=== PATIENT | male | born 1955 | race Caucasian/White ===

== ENCOUNTER 2019-09-01 11:20 | Inpatient (IN) | payer MEDICAID, SELFPAY ==
[~2019-09-01] VITALS: Ht 160 cm; Wt 74.4 kg
[2019-09-01 11:33] VITALS: BP 124/68
[2019-09-01] MEDS ORDERED: ACETAMINOPHEN EXTRA STRENGTH 500 MG TAB PO ONE (11:35)
[2019-09-01] MEDS ORDERED: NACL 0.9% 1,000 ML IV ONE (11:55)
[2019-09-01] MEDS ORDERED: AZITHROMYCIN 500 MG in DEXTROSE 5% 250 ML IV ONE (11:55)
[2019-09-01] MEDS ORDERED: cefTRIAXone 1,000 MG VIAL ONE ×2 (11:57→12:12)
--- NOTE | 2019-09-01 11:58 | NUR ---
PT AMBULATED TO BED 1. PT PLACED IN COVID PRECAUTIONS.
--- NOTE | 2019-09-01 12:05 | NUR ---
IV INSERTED AND LABS DRAWN BEDSIDE
--- NOTE | 2019-09-01 12:15 | NUR ---
ROCEPHIN IVPB STARTED AT 100 MLS/HR
--- NOTE | 2019-09-01 12:25 | NUR ---
EKG READS SR AT 99 BPM
--- NOTE | 2019-09-01 12:30 | NUR ---
COVID SWAB COLLECTED
[2019-09-01 12:35] LABS: PROTHROMBIN TIME 10.1 secs (10.8-13.4)
[2019-09-01 12:36] LABS: ANION GAP 12.6 (8-16); CARBON DIOXIDE 26.3 mmol/L (21-32); POTASSIUM 3.9 mmol/L (3.5-5.1); TOTAL BILIRUBIN 0.5 mg/dL (0.0-1.0)
[2019-09-01 12:37] LABS: ALBUMIN 3.1 g/dL (3.4-5.0)
[2019-09-01] MEDS ORDERED: AZITHROMYCIN 500 MG INJ VIAL IV ONE (12:39)
[2019-09-01 12:48] LABS: CREATINE KINASE MB 0.3 ng/mL (0-3.6)
--- NOTE | 2019-09-01 12:51 | NUR ---
NEW ORAL TEMP 99.7
--- NOTE | 2019-09-01 12:52 | NUR ---
PT UNABLE TO GIVE URINE SAMPLE
[2019-09-01 12:56] LABS: BASOPHILS % (AUTO) 0.2 % (0.0-2.0); EOSINOPHILS % (AUTO) 0.1 % (0.0-4.0); HEMATOCRIT 41.9 % (36-52); HEMOGLOBIN 14.4 g/dL (12.0-18.0); LYMPHOCYTES # (AUTO) 0.3 K/uL (2.0-11.5); LYMPHOCYTES % (AUTO) 5.7 % (20.5-51.1); MEAN CORPUSCULAR HEMOGLOBIN 32 pg (27-31); MEAN CORPUSCULAR HGB CONC 34 g/dL (33-37); MONOCYTES # (AUTO) 0.3 K/uL (0.8-1.0); MONOCYTES % (AUTO) 5.3 % (1.7-9.3); NEUTROPHILS # (AUTO) 4.2 K/uL (1.8-7.7); NEUTROPHILS % (AUTO) 88.7 % (42.2-75.2); PLATELET COUNT (AUTO) 124 K/uL (140-450); RED BLOOD CELL COUNT(AUTO) 4.46 MIL/uL (4.20-6.10); RED CELL DISTRIBUTION WIDTH 14.2 % (11.6-13.7); WHITE BLOOD COUNT (AUTO) 4.7 K/uL (4.8-10.8)
--- NOTE | 2019-09-01 13:00 | NUR ---
PT C/O CP WITH COUGH, SOB, AND FEVER X 5 DAYS. CURRENT TEMP 101.7. TACHYCARDIA AT 109. PT TACHYPENEIC AT 48 RR. BREATHING SHALLOWED. LUNG SOUNDS DIMINISHED. 92% RA UPON TRIAGE. PT PLACED ON 2 L NC AND NOW AT 97%. PT REPORTS PAIN 4/10 TO CHEST WITH COUGHING. PT REPORTS TAKING NO MEDIATIONS FOR HIS FEVER. PT REPORTS NO TRAVEL OR RECENT COVID EXPOSURE. MEDHX: HTN Addendum: 09/01/19 at 1453 by [email or web address] denies pmh
[2019-09-01] MEDS ORDERED: bisacodyL 10 MG SUPP RC PRN (13:25)
[2019-09-01] MEDS ORDERED: ONDANSETRON 4 MG/2 ML VIAL IM/IVP PRN (13:25)
[2019-09-01] MEDS ORDERED: DOCUSATE SODIUM 100 MG GELCAP PO PRN (13:25)
[2019-09-01] MEDS ORDERED: DEXTROSE 50% 50 ML SYR IVP PRN (13:25)
[2019-09-01] MEDS ORDERED: ALBUTEROL HFA MDI 90 MCG/ACTUATION 8 GM INH PRN (14:10)
[2019-09-01 14:19] LABS: APPEARANCE,URINE CLEAR (CLEAR); BILIRUBIN,URINE NEGATIVE (NEGATIVE); BLOOD, URINE 1+ (NEGATIVE); COLOR,URINE ORANGE (YELLOW); LEUKOCYTE ESTERASE ,URINE TRACE (NEGATIVE); NITRITE, URINE NEGATIVE (NEGATIVE); UGLUCOSE NEGATIVE (NEGATIVE)
[2019-09-01] MEDS: NACL 0.9% 1,000 ML IV SCH (14:22)
--- NOTE | 2019-09-01 14:25 | NUR ---
rt at bedside for abgs
[2019-09-01] MEDS: ZINC SULF 220 MG CAP PO SCH (14:31)
--- NOTE | 2019-09-01 14:32 | NUR ---
temp 97.5, pt has no complaints at this time. sr at 92 bpm. tachypneic at 45 rr
--- NOTE | 2019-09-01 14:35 | NUR ---
zinc po administered
[2019-09-01 14:39] LABS: WBC,URINE 0-5 /HPF (0-5)
[2019-09-01 14:44] LABS: BARBITURATE, URINE NEGATIVE ng/ml (NEG <=200); BENZODIAZEPINE, URINE NEGATIVE ng/mL (NEG <=200); CANNABINOID, URINE NEGATIVE ng/mL (NEG <=50); COCAINE, URINE NEGATIVE ng/mL (NEG <=300); OPIATE, URINE NEGATIVE ng/mL (NEG <=2000); PHENCYCLIDINE SCREEN,URINE NEGATIVE ng/mL (NEG <=25)
[2019-09-01] MEDS ORDERED: LORazepam 0.5 MG TAB PO SCH (15:00)
[2019-09-01 15:11] LABS: LACTATE DEHYDROGENASE 396 U/L (85-227)
[2019-09-01 15:33] LABS: FREE T4 (FREE THYROXINE) 1.31 ng/dL (0.76-1.46); MAGNESIUM 1.8 mg/dL (1.8-2.4); PHOSPHORUS 2.9 mg/dL (2.5-4.9); THYROID STIMULATING HORMONE 1.5 uIU/mL (0.34-3.74)
--- NOTE | 2019-09-01 15:43 | NUR ---
ATIVAN PO AND HEPARIN ADMINISTERED SUBQ
--- NOTE | 2019-09-01 16:54 | NUR ---
nacl infusing at 30mls/hr
--- NOTE | 2019-09-01 16:55 | NUR ---
RECEIVED REPORT FROM ER NURSE BALDEMAR FOR CONTINUATION OF CARE. PT IS AAOX4, COOPERATIVE AND ABLE TO MAKE NEEDS KNOWN. PT ON 2L O2 VIA NC FOR DX OF HYPOXIA. PT STATES THAT HE CAN WALK FINE BUT BECOMES SOB WHEN AMBULATING. URINAL PROVIDED FOR SAFETY MEASURES. PT SKIN INTACT. IV IN THE RIGHT AC 18G INFUSING NS @ 30ML/HR. DISCUSSED POC WITH PT. PT VERBALIZED UNDERSTANDING. ALL SAFETY MEASURES IN PLACE. BED IN LOW POSITION, CALL LIGHT WITHIN REACH. WILL ROUND FREQUENTLY ON PT THROUGHOUT THE SHIFT.
--- NOTE | 2019-09-01 16:55 | NUR ---
Patient will be admitted to care of [facility]. Admited to tele. Will go to room 111b. Belongings list completed. Report to radha rawls. covid swab pending
[2019-09-01] MEDS ORDERED: DEXAMETHASONE 4 MG TAB PO SCH (17:00)
[2019-09-01] MEDS ORDERED: ASCORBIC ACID 500 MG TAB PO SCH (17:00)
[2019-09-01] MEDS: BLOOD GLUCOSE MONITORING 1 DEV DEV FS SCH ×2 (17:27→22:30)
--- NOTE | 2019-09-01 18:29 | NUR ---
PT HAVING DINNER. ALL NEEDS MET. WILL CONTINUE TO ROUND FREQUENTLY ON PT.
--- NOTE | 2019-09-01 19:00 | NUR ---
WILL ENDORSE TO ACCOUNT DEVELOPMENT EXECUTIVE FOR CONTINUITY OF CARE. PT IN STABLE CONDITION.
--- NOTE | 2019-09-01 19:00 | NUR ---
RECEIVED PT AAOX4 , NID - O2 SAT WNL , ON TELE MONITOR - SR , DENIES ANY PAIN , W/ O2 AT 2LPM/ NC .IV SITE INTACT AND PATENT . SAFETY MEASURES IN PLACE , URINAL , CALL LIGHT WITHIN REACH . PLAN OF CARE DISCUSSED AND VERBALIZE UNDERSTANDING. WILL CONT. TO MONITOR.
[2019-09-01 20:00] VITALS: BP 140/68
--- NOTE | 2019-09-01 22:00 | NUR ---
MADE ROUNDS , RESTING ON BED COMFORTABLY - O2 SAT WNL . CALL LIGHT WITHIN REACH.
[2019-09-01] MEDS: INSULIN LISPRO SLIDING SCALE 100 UNITS/ML VIAL SUBQ PRN (22:40)
[2019-09-02] VITALS: BP 133/68
--- NOTE | 2019-09-02 | NUR ---
MADE ROUNDS , NO S/SX OF ACUTE DISTRESS NOTED AT THIS TIME , WILL CONT. TO MONITOR.
--- NOTE | 2019-09-02 02:07 | NUR ---
SLEEPING - CHEST RISE AND FALL EQUALLY - O2 SAT WNL - ON TELE MONITOR.
[2019-09-02 04:00] VITALS: BP 130/80
[2019-09-02] MEDS: BLOOD GLUCOSE MONITORING 1 DEV DEV FS SCH ×4 (06:09→21:14)
[2019-09-02 07:15] LABS: HEMATOCRIT 42.3 % (36-52); HEMOGLOBIN 14.6 g/dL (12.0-18.0); MEAN CORPUSCULAR HEMOGLOBIN 33 pg (27-31); MEAN CORPUSCULAR HGB CONC 34 g/dL (33-37); MEAN CORPUSCULAR VOLUME 94.8 fL (80-94); PLATELET COUNT (AUTO) 127 K/uL (140-450); RED BLOOD CELL COUNT(AUTO) 4.46 MIL/uL (4.20-6.10); RED CELL DISTRIBUTION WIDTH 14.5 % (11.6-13.7); WHITE BLOOD COUNT (AUTO) 2.9 K/uL (4.8-10.8)
--- NOTE | 2019-09-02 07:20 | NUR ---
RECEIVED PATIENT FROM NIGHT NURSE. PATIENT IS AWAKE AND ALERT, RESP EVEN AND UNLABORED ON 2L NC. NO NOTED DISTRESS AT THIS TIME. PLAN OF CARE DISCUSSED WITH PATIENT, PATIENT VERBALIZED UNDERSTANDING. BED IN LOW POSITION, CALL LIGHT WITHIN REACH. WILL CONTINUE WITH CARE.
[2019-09-02 07:29] LABS: MAGNESIUM 2.3 mg/dL (1.8-2.4); PHOSPHORUS 3.6 mg/dL (2.5-4.9)
[2019-09-02 07:39] LABS: ALBUMIN 2.6 g/dL (3.4-5.0); ANION GAP 12.6 (8-16); CARBON DIOXIDE 27.4 mmol/L (21-32); CHOL/HDL RATIO 3.7 (1-4.5); CREATININE 0.8 mg/dL (0.6-1.3); TOTAL BILIRUBIN 0.4 mg/dL (0.0-1.0)
[2019-09-02 08:00] VITALS: BP 134/73
[2019-09-02] MEDS: ZINC SULF 220 MG CAP PO SCH (08:27)
[2019-09-02] MEDS: AZITHROMYCIN 250 MG TAB PO SCH (08:27)
[2019-09-02] MEDS: ASCORBIC ACID 500 MG TAB PO SCH (08:27)
[2019-09-02] MEDS: DEXAMETHASONE 4 MG TAB PO SCH (08:28)
[2019-09-02 08:29] LABS: LYMPHOCYTES % (MANUAL) 2 % (20-46); MONOCYTES % (MANUAL) 3 % (5-12)
--- NOTE | 2019-09-02 08:44 | NUR ---
MORNING ROUTINE MEDICATIONS GIVEN. PATIENT TOLERATED WELL. ROCEPHIN ADMINISTERED IVPB. PATIENT IS SITTING UP IN BED EATING BREAKFAST. DENIES ANY SOB. CONTINUES ON 2LNC. CALL LIGHT WITHIN REACH. WILL CONTINUE WITH CARE. VITALS ARE WNL.
--- NOTE | 2019-09-02 10:42 | NUR ---
EPIC ANALYST NOTE: ISAAK WAS UNABLE TO MEET WITH PATIENT AT BEDSIDE DUE TO MEDICAL CONDITION. CONTACTED CORAL BAUMANN [phone]. ISAAK LEFT VM. ISAAK WILL FOLLOW UP. Addendum: 09/02/19 at 1451 by Gio Hager ISAAK CONTACTED NURSING STATION TO BE TRANSFERRED TO PATIENT. PATIENT REFUSED TO SPEAK TO ISAAK. Addendum: 09/03/19 at 1536 by Gio Hager Patient's Orientation Person Situation Place Time Information Provided By PATIENT Comments ISAAK CONTACTED PATIENT TELEPHONICALLY WITH NECK SKEWER LIZBET [id number]. PATIENT IS FIJIAN SPEAKING. Procurement Cost Coordinator, Realtionship and Phone Number CORAL BAUMANN [phone] FRIEND/[facility] Power of Manager Underwriting No Does Patient Have a POLST No Identifying Problems No Social Work Triggers Is A Social Work Consult Needed No Mandate Report Filed No Explanation Of Identifying Problems PATIENT IS A 64-YEAR-OLD MALE ADMITTED FOR COVID AND HYPOXIA. PATIENT REPORTS NO PMHX. Admitted From Home Pre-Admission Level Of Functioning Status Independent/Ambulatory Prior Resources/Services Used In Last 12 Months No Prior Resources Used Prior DME No Prior DME Used Living Situation Lives With Friend/Other Patient Had Caregiver No Home Support No Caregiver Issues Financial Issues No Known Financial Issue Factors/Needs No D/C Needs Identified Pt/Rep Participated In Discharge Plan Yes Patient/Family Agress With Discharge Plan Yes Discharge Plan Comments TENTATIVE DISCHARGE PLAN IS FOR PATIENT TO RETURN HOME. DC Plan Status Initiated
--- NOTE | 2019-09-02 10:55 | NUR ---
DC PLANNIN YRS OLD MALE PATIENT WAS ADMITTED FROM HOME WITH A DX OF COVID-19, PUI AND HYPOXIA. PT HAS NO MEDICAL HISTORY. CXR SHOWED BILATERAL PATCHY PULMONARY INFILTRATES . COVID TEST, BLOOD AND URINE CULTURE PENDING. STARTED ON DECADRON ,ZINC AND VITC TABLETS ,IVF, IV ABX WITH ROCEPHIN AND AZITHROMYCIN AND RT PROTOCOL WITH O2. CONSULTED ID AND PULMO. DC PLAN TO GO HOME WHEN STABLE CM TO FOLLOW. Addendum: 09/03/19 at 1525 by Clarisse Ramey DC PLANNING: COVID TEST POSITIVE CONTINUE WITH IV ABX IV ROCEPHIN AND AZITHROMYCIN , OXYMIZER 8L AWAITING FOR PULMO CONSULT . DC PLAN TO GO HOME WHEN STABLE CM TO FOLLOW Addendum: 09/06/19 at 1216 by Clarisse Ramey DC PLANNING: CT CHEST CONTINUES TO SHOW GROUNDLESS OPACITIES AND BILATERAL LUNG BASES. CONTINUE IV ABX FOR PNEUMONIA WITH AZITHROMYCIN AND ROCEPHIN AND FULL DOSE ANTICOAGULATION WITH LOVENOX. DC PLAN TO GO HOME WITH HOME O2 . AWAITING FOR THE O2 QUALIFIER NOTES. DANIS TO FOLLOW. Addendum: 09/09/19 at 1231 by Alina Cruz CM TRANSFERRED TO ICU ON 09/06 DUE TO DESATURATION. ON HIGH FLOW O2, O2 SAT AT 90% FIO2 95%. ON ROCEPHIN, DECADRON. ID AND PULMO CONSULTS IN PLACE. Addendum: 09/10/19 at 1307 by Alina Cruz CM INTUBATED BURIAL NEEDS SALESPERSON AT 0245 TO VENT, FIO2 70%, O2 SAT 94%. SEDATED WITH PROPOFOL AND FENTANYL. STILL ON DECADRON. SEEN BY PULMO. Addendum: 09/15/19 at 1117 by Alina Cruz CM STILL ORALLY INTUBATED, FIO2 90%. O2 SAT 92%. SEDATED WITH FENTANYL AND PROPOFOL. ON DECADRON. SEEN BY RENTAL COORDINATOR - CONTINUE TO HOLD LOVENOX AND FOLLOW CBC CAREFULLY. Addendum: 09/16/19 at 1151 by Alina Cruz STILL ON ETT TO VENT, FIO2 80%, O2 SAT 92%. SEDATED WITH FENTANYL AND PROPOFOL. ON CARDIZEM DRIP. ON DECADRON. PULMO, CARDIO, ID AND KARUNA CONSULTS IN PLACE. Addendum: 09/17/19 at 1054 by Alina Cruz CURRENT LABS INCLUDE WBC 21.1, H/H 11.7/36.9, NA/K 154/6.0, BUN/CREA 76/1.6 AND ALB 1.5. ON ZOSYN, DECADRON. ON CARDIZEM DRIP. ORALLY INTUBATED TO VENT, FIO2 100%, O2 SAT 90%. SEDATED WITH PROPOFOL AND FENTANYL. SEEN BY CARDIO - CONTINUE CARDIZEM DRIP, CAN ATTEMPT DIURESIS WITH LASIX UNDER RENAL GUIDANCE DUE TO ELECTROLYTE IMBALANCE, ANTICOAGULATION CONTRAINDICATED SECONDARY TO THROMBOCYTOPENIA. SEEN BY ID - TO CONTINUE CURRENT THERAPY AND FOLLOW UP CULTURES. PATIENT SPIKED A TEMP YESTERDAY AT 1600-100.4. DC PLAN PENDING ON PATIENT'S RESPONSE TO TREATMENT.
[2019-09-02 12:00] VITALS: BP 128/66
--- NOTE | 2019-09-02 12:05 | NUR ---
BLOOD GLUCOSE 166, PATIENT RECEIVED COVERAGE PER SLIDING SCALE. VITALS WNL 97.5 63 16 128/66 95% ON 2L NC. NO NOTED DISTRESS. PATIENT DENIES OF PAIN AT THIS TIME. CALL LIGHT WITHIN REACH. WILL CONTINUE TO MONITOR
[2019-09-02] MEDS: INSULIN LISPRO SLIDING SCALE 100 UNITS/ML VIAL SUBQ PRN ×3 (12:21→21:14)
[2019-09-02] MEDS: NACL 0.9% 1,000 ML IV SCH (12:27)
[2019-09-02 16:00] VITALS: BP 148/78
--- NOTE | 2019-09-02 16:23 | NUR ---
PATIENT HAS BEEN SCREENED AND CATEGORIZED MODERATE NUTRITION RISK. PATIENT WILL BE SEEN WITHIN 3-5 DAYS OF ADMISSION. 09/04/19 09/06/[address]
--- NOTE | 2019-09-02 19:15 | NUR ---
ENDORSED PATIENT TO NIGHT NURSE. PATIENT IN STABLE CONDITION.
--- NOTE | 2019-09-02 19:15 | NUR ---
RECEIVED BEDSIDE REPORT FROM DAY SHIFT NURSE. PATIENT IS AWAKE, ALERT, AND COOPERATIVE. RESPIRATION EVEN UNLABORED ON 2L NC O2. NO DISTRESS NOTED. SKIN IS WARM AND DRY. IV PATENT AND INTACT. PLAN OF CARE WAS DISCUSSED. ALL SAFETY MEASURES IN PLACE. BED IS AT LOW POSITION. CALL LIGHT WITHIN REACH AND VERBALIZES ITS USE. WILL CONTINUE TO MONITOR.
[2019-09-02 20:00] VITALS: BP 116/68
--- NOTE | 2019-09-02 20:05 | NUR ---
INITIAL ASSESSMENT DONE. VITALS WERE TAKEN. PATIENT IN STABLE CONDITION. NO DISTRESS NOTED. WILL CONTINUE TO MONITOR.
[2019-09-02] MEDS: ACETAMINOPHEN 325 MG TAB PO PRN (21:05)
--- NOTE | 2019-09-02 21:05 | NUR ---
ALL SCHEDULED MEDS WERE GIVEN PER ORDER. PATIENT COMPLAINED OF HEADACHE 6/10 PRN TYLENOL GIVEN PER ORDER. WILL CONTINUE TO MONITOR.
--- NOTE | 2019-09-02 22:23 | NUR ---
CHECKED PATIENT. PATIENT IS AWAKE, WATCHING TV RESPIRATION EVEN UNLABORED ON 2L NC O2. NO DISTRESS NOTED. WILL CONTINUE TO MONITOR.
[2019-09-03] VITALS: BP 128/54
--- NOTE | 2019-09-03 00:02 | NUR ---
VITALS WERE TAKEN. PATIENT IN STABLE CONDITION. NO DISTRESS NOTED. WILL CONTINUE TO MONITOR.
--- NOTE | 2019-09-03 02:17 | NUR ---
CHECKED PATIENT. PATIENT SLEEPING RESPIRATION EVEN UNLABORED ON 2L NC O2. SATING 95%. NO DISTRESS NOTED. WILL CONTINUE TO MONITOR.
[2019-09-03 04:00] VITALS: BP 124/64
--- NOTE | 2019-09-03 04:00 | NUR ---
VITALS WERE TAKEN. PATIENT IN STABLE CONDITION. NO DISTRESS NOTED. WILL CONTINUE TO MONITOR.
--- NOTE | 2019-09-03 04:45 | NUR ---
PATIENT WOKE UP WITH SHORTNESS OF BREATH. ASSESSED PATIENT. PATIENT IS SATING 89% IN 2L NC O2. RR 25. INCREASED PATIENT O2 TO 4L. PATIENT SATING 92%. CALLED RT FOR BREATHING TREATMENT. WILL CONTINUE TO MONITOR.
--- NOTE | 2019-09-03 05:04 | NUR ---
PATIENT WOKE UP ANXIOUS AND RESP RATE ELEVATED AND COMPLAINING OF SOB. SPO2 88 HR 68. PATIENT HAD DIFF CLEARING SECRETIONS. OXYMIZER PLACED ON 8L AND PRN TX MDI GIVEN. PATIENT SPO2 INCREASED TO 94 HR 68 AND RESP RATE NORMAL. NO SOB NOTICED PATIENT STABLE AND ALERT.
[2019-09-03] MEDS: guaiFENesin 20 MG/ML UDC PO PRN ×2 (05:19→13:59)
--- NOTE | 2019-09-03 05:25 | NUR ---
PATIENT IS NOW ON 8L OXIMIZER SATING 96%. PATIENT COMPLAINED OF COUGH. PRN COUGH MEDS GIVEN PER ORDER. WILL CONTINUE TO MONITOR.
[2019-09-03 06:33] LABS: HEMOGLOBIN 14.3 g/dL (12.0-18.0); MEAN CORPUSCULAR HEMOGLOBIN 32 pg (27-31); MEAN CORPUSCULAR HGB CONC 34 g/dL (33-37); PLATELET COUNT (AUTO) 154 K/uL (140-450); RED BLOOD CELL COUNT(AUTO) 4.46 MIL/uL (4.20-6.10); RED CELL DISTRIBUTION WIDTH 14.5 % (11.6-13.7); WHITE BLOOD COUNT (AUTO) 7.5 K/uL (4.8-10.8)
[2019-09-03] MEDS: BLOOD GLUCOSE MONITORING 1 DEV DEV FS SCH ×4 (06:36→21:31)
--- NOTE | 2019-09-03 06:48 | NUR ---
TITRATE PATIENT O2 TO 5L OXYMIZER. PATIENT IS SATING 95%. NO DISTRESS NOTED. WILL CONTINUE TO MONITOR.
--- NOTE | 2019-09-03 07:05 | NUR ---
RECEIVED BEDSIDE REPORT FROM CLIENT EXPERIENCE CONSULTANT RN, FAM, FOR CONTINUITY OF CARE PATIENT IS AWAKE, ALERT, AND COOPERATIVE. RESPIRATION EVEN UNLABORED ON 2L NC O2. NO DISTRESS NOTED. SKIN IS WARM AND DRY. IV PATENT AND INTACT. PLAN OF CARE WAS DISCUSSED. ALL SAFETY MEASURES IN PLACE. BED IS AT LOW POSITION. CALL LIGHT WITHIN REACH AND VERBALIZES ITS USE. WILL CONTINUE TO MONITOR.
[2019-09-03 07:09] LABS: ALBUMIN 2.5 g/dL (3.4-5.0); ANION GAP 12.1 (8-16); CARBON DIOXIDE 27.4 mmol/L (21-32); CREATININE 0.9 mg/dL (0.6-1.3); POTASSIUM 4.5 mmol/L (3.5-5.1); TOTAL BILIRUBIN 0.3 mg/dL (0.0-1.0)
--- NOTE | 2019-09-03 07:15 | NUR ---
ENDORSED PATIENT TO DAY SHIFT NURSE. PATIENT IN STABLE CONDITION.
[2019-09-03 07:23] LABS: LYMPHOCYTES % (MANUAL) 2 % (20-46); MONOCYTES % (MANUAL) 4 % (5-12)
[2019-09-03 08:00] VITALS: BP 136/68
[2019-09-03 09:29] LABS: MAGNESIUM 2.1 mg/dL (1.8-2.4); PHOSPHORUS 3.3 mg/dL (2.5-4.9)
[2019-09-03] MEDS: DEXAMETHASONE 4 MG TAB PO SCH (10:00)
[2019-09-03] MEDS: AZITHROMYCIN 250 MG TAB PO SCH (10:01)
[2019-09-03] MEDS: ZINC SULF 220 MG CAP PO SCH (10:01)
[2019-09-03] MEDS: ASCORBIC ACID 500 MG TAB PO SCH (10:02)
--- NOTE | 2019-09-03 10:15 | NUR ---
SPOKE TO PT'S FAMILY ABOUT PT'S CONDITION. PROVIDED UPDATES AND ADDRESSED FAMILY CONCERNS ABOUT PT. FAMILY VERBALIZES UNDERSTANDING. WILL CONTINUE TO MONITOR.
[2019-09-03 12:00] VITALS: BP 136/79
[2019-09-03] MEDS: NACL 0.9% 1,000 ML IV SCH (13:59)
[2019-09-03] MEDS: ACETAMINOPHEN 325 MG TAB PO PRN (14:00)
--- NOTE | 2019-09-03 14:00 | NUR ---
PT. COMPLAINS OF SQUEEZING HEADACHE OF 4/10 AND PERSISTENT COUGH. MEDICATED WITH TYLENOL AND GUANIFESIN. NO SIGNS OF DISTRESS NOTED. [facility]
--- NOTE | 2019-09-03 14:05 | NUR ---
DR. MORTON BY THE BEDSIDE. ENCOURAGED PT. TO PRONE AND USE INCENTIVE SPIROMETER. ADVISED TO LOWER O2 SAO2 IS WELL ABOVE 96%. WILL FOLLOW THROUGH.
--- NOTE | 2019-09-03 14:43 | NUR ---
RECEIVED CALL FROM KRYS KARIMI. CRITICAL LAB RESULT GIVEN FOR POSITIVE COVID-19. RELAYED REPORT TO DR. TALAMANTES. NO NEW ORDERS GIVEN. WILL CONTINUE TO MONITOR.
[2019-09-03 16:00] VITALS: BP 127/70
--- NOTE | 2019-09-03 19:10 | NUR ---
RECEIVED BEDSIDE REPORT FROM DAY SHIFT NURSE. PATIENT IS AWAKE AND COOPERATIVE. RESPIRATION EVEN UNLABORED ON 3L OXYMIZER. NO DISTRESS NOTED. SKIN IS WARM AND DRY. IV PATENT AND INTACT. PLAN OF CARE WAS DISCUSSED. ALL SAFETY MEASURES IN PLACE. BED IS AT LOW POSITION. CALL LIGHT WITHIN REACH. WILL CONTINUE TO MONITOR.
--- NOTE | 2019-09-03 19:24 | NUR ---
ENDORSED TO OPERATIONS LOGISTICS ANALYST RN FOR CONTINUITY OF CARE.
[2019-09-03 20:00] VITALS: BP 140/70
--- NOTE | 2019-09-03 21:30 | NUR ---
ALL SCHEDULED MEDS WERE GIVEN PER ORDER. NO DISTRESS NOTED. WILL CONTINUE TO MONITOR.
[2019-09-03] MEDS: INSULIN LISPRO SLIDING SCALE 100 UNITS/ML VIAL SUBQ PRN (21:38)
--- NOTE | 2019-09-03 23:34 | NUR ---
CHECKED PATIENT. PATIENT IS SLEEPING RESPIRATION EVEN UNLABORED ON 3L OXYMIZER O2. NO DISTRESS NOTED. WILL CONTINUE TO MONITOR.
[2019-09-04] VITALS: BP 129/65
--- NOTE | 2019-09-04 00:10 | NUR ---
VITALS WERE TAKEN. PATIENT IN STABLE CONDITION. NO DISTRESS NOTED. WILL CONTINUE TO MONITOR.
[2019-09-04] MEDS: guaiFENesin 20 MG/ML UDC PO PRN (01:57)
--- NOTE | 2019-09-04 02:00 | NUR ---
PATIENT COMPLAINED OF COUGH. PRN COUGH MEDICINE GIVEN PER ORDER. WILL CONTINUE TO MONITOR.
[2019-09-04 04:00] VITALS: BP 149/84
--- NOTE | 2019-09-04 04:05 | NUR ---
CAME BACK FROM BREAK. CHECKED PATIENT. VITALS WERE TAKEN. PATIENT IS ON 15L NON-REBREATHER MASK. SATING 94%. NO DISTRESS NOTED. WILL CONTINUE TO MONITOR.
[2019-09-04] MEDS: BLOOD GLUCOSE MONITORING 1 DEV DEV FS SCH ×4 (06:24→21:27)
--- NOTE | 2019-09-04 06:48 | NUR ---
CHECKED PATIENT. PATIENT SATING 93% ON 15L NON-REBREATHER MASK.
--- NOTE | 2019-09-04 07:14 | NUR ---
ENDORSED PATIENT TO DAY SHIFT NURSE. PATIENT IN STABLE CONDITION.
--- NOTE | 2019-09-04 07:15 | NUR ---
RECEIVED BEDSIDE REPORT FROM OUTREACH MANAGER NURSE. PATIENT IS AWAKE AND COOPERATIVE. RESPIRATION EVEN UNLABORED ON 15L OXYMIZER. RT WAS CALLED TO COME CHECK IN ON PATIENT AND GIVE BREATHING TREATMENT PRN. PATIENT HAS ANXIETY, DENIES PAIN. SKIN IS WARM AND DRY. IV PATENT AND INTACT. DROPLET PRECAUTIONS IN PLACE, PATIENT +COVID, ALL SAFETY MEASURES IN PLACE. BED IS AT LOW POSITION. CALL LIGHT WITHIN REACH. WILL CONTINUE TO MONITOR.
--- NOTE | 2019-09-04 07:35 | NUR ---
RT IN TO ASSESS PATIENT AND GIVE BREATHING ASSESSMENT.
[2019-09-04 07:45] LABS: BASOPHILS # (AUTO) 0.1 K/uL (0.00-0.22); BASOPHILS % (AUTO) 0.7 % (0.0-2.0); HEMATOCRIT 44.4 % (36-52); HEMOGLOBIN 15.3 g/dL (12.0-18.0); LYMPHOCYTES # (AUTO) 0.2 K/uL (2.0-11.5); LYMPHOCYTES % (AUTO) 2.5 % (20.5-51.1); MEAN CORPUSCULAR HEMOGLOBIN 32 pg (27-31); MEAN CORPUSCULAR HGB CONC 34 g/dL (33-37); MEAN CORPUSCULAR VOLUME 94.1 fL (80-94); MONOCYTES # (AUTO) 0.4 K/uL (0.8-1.0); MONOCYTES % (AUTO) 4.4 % (1.7-9.3); NEUTROPHILS # (AUTO) 8.4 K/uL (1.8-7.7); NEUTROPHILS % (AUTO) 92.4 % (42.2-75.2); PLATELET COUNT (AUTO) 169 K/uL (140-450); RED BLOOD CELL COUNT(AUTO) 4.72 MIL/uL (4.20-6.10); RED CELL DISTRIBUTION WIDTH 14.3 % (11.6-13.7); WHITE BLOOD COUNT (AUTO) 9.1 K/uL (4.8-10.8)
[2019-09-04 07:55] LABS: PHOSPHORUS 3.5 mg/dL (2.5-4.9)
[2019-09-04 08:00] VITALS: BP 148/76
[2019-09-04 08:00] LABS: ALBUMIN 2.8 g/dL (3.4-5.0); CARBON DIOXIDE 26.1 mmol/L (21-32); CREATININE 0.8 mg/dL (0.6-1.3); POTASSIUM 4.1 mmol/L (3.5-5.1); TOTAL BILIRUBIN 0.5 mg/dL (0.0-1.0)
[2019-09-04] MEDS ORDERED: remdesivir COMMUNICATION ORDER 1 EA MISC MC PRN (09:00)
[2019-09-04] MEDS ORDERED: CLINICAL MONITORING MC PRN (09:05)
[2019-09-04] MEDS ORDERED: remdesivir 200 mg in NACL 0.9% 100 ML IV SCH (09:30)
[2019-09-04] MEDS: DEXAMETHASONE 4 MG TAB PO SCH (09:30)
[2019-09-04] MEDS: ZINC SULF 220 MG CAP PO SCH (09:30)
[2019-09-04] MEDS: ASCORBIC ACID 500 MG TAB PO SCH (09:35)
[2019-09-04] MEDS: busPIRone 5 MG TAB PO SCH (09:35)
--- NOTE | 2019-09-04 09:45 | NUR ---
ORDERED MEDICATIONS GIVEN. 1ST DOSE OF REMDESIVIR GIVEN. EDUCATION HANDOUT IN [place] GIVEN TO PATIENT. PATIENT VERBALIZED UNDERSTANDING. ORDERED MEDICATION GIVEN. PATIENT TOLERATED THEM. SISTER ALISA CALLED, PHONE # [phone], SHE REQUESTED FOR ACCOUNTING ASSISTANT, INFORMED HER WILL CALL HER BACK. WILL CONTINUE TO MONITOR PATIENT. Addendum: 09/04/19 at 1101 by Jared Diane RN PATIENT O2 SATURATION 95% ON 10L NRM, ATTEMPTED TO WEAN PATIENT TO OXIMIZER, PATIENT DESATTED ON OXIMIZER TO 88%. PATIENT NOW BACK ON 13L NRM, O2 SATURATION AT 95%. WILL CONTINUE TO MONITOR PATIENT.
--- NOTE | 2019-09-04 10:55 | NUR ---
PATIENT CALLED, ANXIOUS, REPORTING HE NEEDS MORE OXYGEN. INCREASED NRM FROM 13L BACK TO 15L. PATIENT CURRENT O2 SATURATION 94-95%. ATTEMPTED TO CALM PATIENT DOWN, ENCOURAGE HIM TO DEEP BREATH AND DECREASE RESPIRATION RATE. WILL CONTINUE TO MONITOR PATIENT.
[2019-09-04 12:00] VITALS: BP 160/80
--- NOTE | 2019-09-04 12:00 | NUR ---
BLOOD SUGAR 109, NO COVERAGE NEEDED. PATIENT CURRENTLY SITTING UP EATING LUNCH, NONREBREATHER MASK CHANGED TO OXIMIZER AT 15L SO PATIENT CAN EAT. PATIENT STATING HE'S TOLERATING IT. WILL CONTINUE TO MONITOR PATIENT'S OXYGEN SATURATION.
[2019-09-04] MEDS: NACL 0.9% 1,000 ML IV SCH (13:23)
[2019-09-04 16:00] VITALS: BP 140/75
[2019-09-04] MEDS: ACETAMINOPHEN 325 MG TAB PO PRN (16:16)
--- NOTE | 2019-09-04 16:25 | NUR ---
CONVALESCENCE PLASMA STARTED. PATIENT TOLERATING IT. WILL CONTINUE TO MONITOR PATIENT.
--- NOTE | 2019-09-04 16:50 | NUR ---
IV SITE LEAKING. IV CATHETER REMOVED, IV CATHETER INTACT. MINIMAL BLEEDING NOTED. PATIENT AGREEABLE TO NEW IV INSERT.
--- NOTE | 2019-09-04 17:25 | NUR ---
NEW IV INSERTED AT RIGHT FA 20G. ASYMPTOMATIC, INTACT, AND PATENT. PATIENT CALM AND COOPERATIVE. ENCOURAGED PATIENT TO USE IS. PATIENT AGREEABLE TO USING IT 10 TIMES WITHIN ONE HOUR. PATIENT HAD POOR EXPIRATION BUT COOPERATIVE. O2 CHANGED TO 13L, O2 SATURATION 94% AT THIS TIME. WILL CONTINUE TO MONITOR PATIENT'S O2 SATURATION CLOSELY.
[2019-09-04] MEDS: INSULIN LISPRO SLIDING SCALE 100 UNITS/ML VIAL SUBQ PRN ×2 (17:39→21:30)
--- NOTE | 2019-09-04 17:40 | NUR ---
BLOOD SUGAR 159, INSULIN GIVEN. PATIENT COOPERATIVE AND CALM. NO S/S OF SOB OR DISTRESS NOTED. WILL CONTINUE TO MONITOR PATIENT.
--- NOTE | 2019-09-04 19:15 | NUR ---
RECD. RESTING IN BED, AWAKE, A/OX4. RESPIRATION EVEN AND UNLABORED. ON 02 OXYMIZER AT 12 LITERS. 02 SAT 88 - 90%. BACK TO 13 LITERS, 02 SAT - 94-96%. IV OF NS AT 30 ML/HR INFUSING, RIGHT FOREARM G20. WATCHING TV. USES THE URINAL. PLAN OF CARE FOR THE SHIFT DISCUSSED. VERBALIZED UNDERSTANDING. DENIES PAIN 0/10.
--- NOTE | 2019-09-04 19:30 | NUR ---
Patient's Plan of Care was discussed and reviewed with MEDICAL OFFICE RECEPTIONIST ASSISTANT: JOYCE HAM
[2019-09-04 20:00] VITALS: BP 99/47
--- NOTE | 2019-09-04 21:26 | NUR ---
PT IN NO APPARENT DISTRESS WELL DENIES ANY DISTRESS PT SITTING UP IN BED PERFORMING IS SAT 91%
--- NOTE | 2019-09-04 21:30 | NUR ---
SNACK FOR THE NIGHT GIVEN.
[2019-09-05] VITALS: BP 134/59
--- NOTE | 2019-09-05 | NUR ---
PATIENT CALLED, FOUND RESTING IN BED, WITH SOB, RR - 40. 02 SAT 86 - 88% ON OXIMIZER AT 13 LITERS INCREASED TO 14 LITERS, STILL DESATURATING, CALLED RT.
--- NOTE | 2019-09-05 00:15 | NUR ---
RT CHANGED 02 TO NON-REBREATHER MASK, 02 SAT - INCREASED TO 99%.
--- NOTE | 2019-09-05 00:40 | NUR ---
BACK TO OXIMIZER AT 13 LITERS, 02 SAT - 95 - 96%. RESTING COMFORTABLY IN BED, NO SOB NOTED.
--- NOTE | 2019-09-05 01:38 | NUR ---
CALLED TO BEDSIDE PT WAS SOB AND SAT MID TO HIGH 80s PT WAS GIVEN 2x PUFF ALB MDI W/ SPACER AND WAS PLACED ON NRB 15L PT DID NOT TOLERATE MASK WELL HE GETS CLAUSTROPHOBIC/ANXIOUS AND TAKES MASK OFF DR VILLARREAL IS AWARE OF THIS WELL PT WAS PLACED BACK ON OXY @ 15L Addendum: 09/05/19 at 0143 by Frandy Jorge Jr RT PT SPO2 NOW 89-93% AND IS SLEEPING AND DOESN'T APPEAR TO BE IN DISTRESS AT THIS TIME
--- NOTE | 2019-09-05 02:14 | NUR ---
PT SLEEPING COMFORTABLY SPO2 94% HR 55 WILL CONTINUE TO MONITOR
--- NOTE | 2019-09-05 02:55 | NUR ---
CHECKED PATIENT 02 SAT - 86 - 88%. INFORMED RT.
[2019-09-05] MEDS: guaiFENesin 20 MG/ML UDC PO PRN ×3 (03:00→21:45)
--- NOTE | 2019-09-05 03:00 | NUR ---
WITH COUGHING, MEDICATED WITH ROBITUSSIN PER MD ORDER. RT CAME TO CHECK PATIENT.
--- NOTE | 2019-09-05 03:45 | NUR ---
DR. VILLARREAL WITH RT IN THE ROOM, ABGs DONE. PATIENT STILL DESATURATING TO 88% - 89%.
[2019-09-05 04:00] VITALS: BP 143/78
--- NOTE | 2019-09-05 04:30 | NUR ---
PATIENT ON NON REBREATHER MASK, SATURATION 88 -89%.
--- NOTE | 2019-09-05 04:45 | NUR ---
PATIENT RESTING IN BED, HOLDING NON-REBREATHER MASK, 02 SAT - 93%.
--- NOTE | 2019-09-05 05:00 | NUR ---
ABG RESULT - P02 -47.7, OXYHEMOGLOBIN - 82.6, DR. VILLARREAL AWARE.
[2019-09-05] MEDS: BLOOD GLUCOSE MONITORING 1 DEV DEV FS SCH ×4 (06:01→20:59)
--- NOTE | 2019-09-05 06:36 | NUR ---
RESTING IN BED ON 15 LITERS NON-REBREATHER MASK, 02 SAT - 92%. RESPIRATORY STATUS REMAIN STABLE. WILL ENDORSE TO AM SHIFT NURSE FOR CONTINUITY OF CARE.
[2019-09-05 07:03] LABS: BASOPHILS % (AUTO) 0.4 % (0.0-2.0); HEMATOCRIT 41.7 % (36-52); HEMOGLOBIN 14.3 g/dL (12.0-18.0); LYMPHOCYTES # (AUTO) 0.3 K/uL (2.0-11.5); LYMPHOCYTES % (AUTO) 2.8 % (20.5-51.1); MEAN CORPUSCULAR HEMOGLOBIN 32 pg (27-31); MEAN CORPUSCULAR HGB CONC 34 g/dL (33-37); MEAN CORPUSCULAR VOLUME 94.6 fL (80-94); MONOCYTES # (AUTO) 0.3 K/uL (0.8-1.0); MONOCYTES % (AUTO) 3.4 % (1.7-9.3); NEUTROPHILS # (AUTO) 8.2 K/uL (1.8-7.7); NEUTROPHILS % (AUTO) 93.4 % (42.2-75.2); PLATELET COUNT (AUTO) 166 K/uL (140-450); RED BLOOD CELL COUNT(AUTO) 4.41 MIL/uL (4.20-6.10); RED CELL DISTRIBUTION WIDTH 14.1 % (11.6-13.7); WHITE BLOOD COUNT (AUTO) 8.8 K/uL (4.8-10.8)
--- NOTE | 2019-09-05 07:10 | NUR ---
ENDORSED TO AM SHIFT NURSE FOR CONTINUITY OF CARE.
[2019-09-05 07:11] LABS: MAGNESIUM 1.9 mg/dL (1.8-2.4); PHOSPHORUS 2.9 mg/dL (2.5-4.9)
--- NOTE | 2019-09-05 07:11 | NUR ---
RECEIVED BEDSIDE REPORT FROM HORTICULTURE SUPERVISOR NURSE. PATIENT IS AWAKE AND COOPERATIVE. RESPIRATION EVEN UNLABORED ON 15L OXYMIZER. PATIENT HAS ANXIETY, DENIES PAIN. SKIN IS WARM AND DRY. IV PATENT AND INTACT INFUSING IVF WELL. DROPLET PRECAUTIONS IN PLACE, PATIENT +COVID, ALL SAFETY MEASURES IN PLACE. BED IS AT LOW POSITION. CALL LIGHT WITHIN REACH. WILL CONTINUE TO MONITOR.
[2019-09-05 07:14] LABS: ALBUMIN 2.6 g/dL (3.4-5.0); ANION GAP 11.1 (8-16); CARBON DIOXIDE 27.9 mmol/L (21-32); CREATININE 0.9 mg/dL (0.6-1.3); TOTAL BILIRUBIN 0.6 mg/dL (0.0-1.0)
--- NOTE | 2019-09-05 07:15 | NUR ---
DR SHERWOOD IN TO SEE PATIENT. PER DR. SHERWOOD, O2 10L NRB, PATIENT O2 SATURATION 96%. WILL CONTINUE TO MONITOR PATIENT.
[2019-09-05] MEDS: ASCORBIC ACID 500 MG TAB PO SCH (07:45)
[2019-09-05] MEDS: busPIRone 5 MG TAB PO SCH (07:45)
[2019-09-05] MEDS: ZINC SULF 220 MG CAP PO SCH (07:45)
[2019-09-05] MEDS: DEXAMETHASONE 4 MG TAB PO SCH (07:45)
--- NOTE | 2019-09-05 07:45 | NUR ---
PATIENT ANXIOUS, C/O COUGHING, REQUESTING FOR COUGH MEDICATIONS. ORDERED MEDICATIONS WITH GUANIFESIN GIVEN REQUESTED. D/T COUGHING AND ANXIETY, O2 SATURATION AT 85% ON 10L NRB, O2 INCREASED TO 15L, PATIENT NOW CALMER, O2 SATURATION AT 91%, WILL CONTINUE TO MONITOR PATIENT.
[2019-09-05 07:55] VITALS: BP 134/78
[2019-09-05] MEDS: ACETAMINOPHEN 325 MG TAB PO PRN (07:55)
--- NOTE | 2019-09-05 08:40 | NUR ---
PATIENT ANXIOUS BUT COOPERATIVE. AMBULATED TO BATHROOM WITH STANDBY ASSIST ON STEADY GAIT. HAD BM. PATIENT NOW BACK IN BED EATING BREAKFAST. 92% ON 15L NRB. WILL CONTINUE TO MONITOR PATIENT.
[2019-09-05] MEDS ORDERED: remdesivir 100 mg in NACL 0.9% 100 ML IV SCH (09:00)
--- NOTE | 2019-09-05 09:00 | NUR ---
CT CALLED ASKING FOR RN TO ACCOMPANY PATIENT TO RADIOLOGY FOR CT CHEST. WILL CONTACT THEM WHEN RN IS AVAILABLE. PATIENT CURRENTLY RESTING IN BED, ATTEMPTING TO USE IS. NO COMPLAINTS AT THIS TIME. ON 15L O2 NRB MASK O2 SATURATION 92%.
--- NOTE | 2019-09-05 10:48 | NUR ---
CALLED DR. JANET SHERWOOD [phone] REVIEWED ABG SAMPLE REPORT CONTINUE TO TITRATED FIO2 TO KEEP SATURATION GREATER THAN 90% SPUTUM CULTURE REQUIRED LANGUAGE BARRIER - GUINEAN SPEAKING PATIENT "POINTING AT [place]" COAGULANT DIPPER OBSERVED MODERATE THICK PALE YELLOW SECRETIONS PATIENT TACHYPNEIC WITH RESPIRATIONS AT 26-28 PATIENT UNABLE TO GENERATE DEEP BREATH FOR INCENTIVE SPIROMETRY AND MDI THERAPY FOREMENTIONED MD TO CONSIDER HHN THERAPY
[2019-09-05] MEDS: NACL 0.9% 1,000 ML IV SCH (11:05)
[2019-09-05] MEDS: ALBUTEROL SULFATE/IPRATROPIU 3 ML SOL IH SCH ×4 (11:59→23:04)
--- NOTE | 2019-09-05 11:59 | NUR ---
AWAKE AND ALERT VERBALLY RESPONSIVE PER COVI-19 AIRWAY MANAGEMENT BY [employer] AND [employer] HHN THERAPY GIVEN WITH BIPAP MASK AND BACTERIAL FILTER IN PLACE SPECIMEN CUP PLACED ON PATIENT TABLE FOR SPUTUM CULTURE OBTAINMENT VISUAL EDUCATION PROVIDED TO PATIENT
[2019-09-05 12:00] VITALS: BP 120/82
[2019-09-05] MEDS ORDERED: ACETYLCYSTEINE 10% (100 MG/ML) 100 MG/ML VIAL INH SCH (12:00)
[2019-09-05] MEDS: ACETYLCYSTEINE 10% (100 MG/ML) 100 MG/ML VIAL INH SCH ×4 (12:18→23:04)
[2019-09-05] MEDS: AZITHROMYCIN 250 MG TAB PO SCH (14:40)
--- NOTE | 2019-09-05 15:59 | NUR ---
(LATE ENTRY) DEMONSTRATION AND EDUCATION PROVIDED TO PATIENT ON THE USE OF INCENTIVE SPIROMETRY TOLERATED THERAPY WELL WITHOUT INCIDENT (PRODUCTIVE COUGH) ENCOURAGED PATIENT WITH ACKNOWLEDGEMENT TO USE INCENTIVE SPIROMETRY EVERY 1-2 HOURS WHILE AWAKE
[2019-09-05 16:00] VITALS: BP 140/83
[2019-09-05] MEDS: INSULIN LISPRO SLIDING SCALE 100 UNITS/ML VIAL SUBQ PRN (18:06)
--- NOTE | 2019-09-05 18:40 | NUR ---
YAEL BONE CALLED. PHONE #[phone]. UPDATED HER ON PATIENT'S CARE PLAN AND STATUS AND CONDITION. SHE VERBALIZED UNDERSTANDING AND WILL COMMUNICATE TO PATIENT'S FAMILY WHO DO NOT UNDERSTAND [place] WELL. PATIENT O2 SATURATION 9L NRB 92-93%. NO COMPLAINTS AT THIS TIME. WILL CONTINUE TO MONITOR PATIENT.
--- NOTE | 2019-09-05 19:25 | NUR ---
RECEIVED PT AAOX4 , NID - O2 SAT WNL . IV SITE INTACT AND PATENT , DENIES ANY PAIN , C/O COUGH - WILL MEDICATE . ON TELE MONITOR . SAFETY MEASURES IN PLACE - CALL LIGHT , URINAL WITHIN REACH . PLAN OF CARE DISCUSSED AND VERBALIZE UNDERSTANDING -FOR CHEST CT TO NIGHT , FOR TRANSFUSSION OF 1 BAG OF FFP TONIGHT . ON O2 AT 8LM/MASK - COVID 19 + - FOR CLOSELY WATCH .
--- NOTE | 2019-09-05 19:25 | NUR ---
REPORT GIVEN TO SENIOR CONSTRUCTION MANAGER NURSE FOR CONTINUITY OF CARE. PATIENT IN STABLE CONDITION.
[2019-09-05 20:00] VITALS: BP 140/61
--- NOTE | 2019-09-05 20:17 | NUR ---
RECEIVED REPORT FROM AM SHIFT. PT SEEN AND ASSESSED. FOUND PT ON 8L SIMPLE MASK WITH SPO2 OF 90%. RALES BREATH SOUNDS ON AUSCULTATION. NOTICED ADEQUATE BILATERAL CHEST RISE AND AND FALL. PT IS IN NO APPARENT RESPIRATORY DISTRESS AT THIS TIME AND NO C/O SOB. HHN TX GIVEN AT THIS TIME. SPO2 IMPROVED TO 94%. WILL CONTINUE TO MONITOR PT.
--- NOTE | 2019-09-05 21:45 | NUR ---
FOR CT CHEST - FORMSTONE FITTER BY RADIOLOGIST - O2 SAT 95% - TRANFER TO WHEELCHAIR W/ PORTABLE O2 TANK - WILL CONT. TO MONITOR.
--- NOTE | 2019-09-05 23:00 | NUR ---
BACK TO ROOM - AMBULATES TO BED , RE CHECK THE O2 SAT WNL , ON TELE MONITOR.
--- NOTE | 2019-09-05 23:33 | NUR ---
HHN TX GIVEN AT THIS TIME AND PT TOLERATED WELL. PT WAS ASSISTED INTO PRONE POSITION AFTER HHN TX. PT TOLERATED PROCEDURE WELL. INITIAL SPO2 BEFORE PRONE 89%. SPO2 IMPROVED TO 95%-96% WHEN PT WAS PLACED IN PRONE POSITION. RN INFORMED THAT PT IS IN PRONE POSITION. WILL CONTINUE TO MONITOR PT.
[2019-09-06] VITALS: BP 140/60
--- NOTE | 2019-09-06 | NUR ---
MADE ROUNDS , NO COMPLAIN MADE . ON TELE MONITOR. HE IS ON PRONE POSITION - O2 SAT WNL.
--- NOTE | 2019-09-06 01:30 | NUR ---
PT IRRITABLE - DECLINING O2 SAT - SHE C/O OF SOB - ASSESS PT - CHECK THE O2 CALIBER - ASSIST PT TO PRONE POSITION AND ENCOURAGE HIM TO TAKE A DEEP BREATH .REFER TO RT FOR FURTHER ASSESSMENT .
--- NOTE | 2019-09-06 01:40 | NUR ---
ASSESED BY RT , TO CHANGE ON O2 INH . SET UP - WILL CONT . TO MONITOR , PT NIOW APPEARS COMFORTABLY ON BED 02 SAT. 93% - FOR CLOSELY WATCH .
--- NOTE | 2019-09-06 03:00 | NUR ---
PT IRRITABLE SHOUTING C/O SOB - CLAIM DOWN THE PT . ENCOURAGE HIM TO DO DEEP BREATHING AND TRY TO RELAX . - FOR CLOSELY WATCH - REFER TO RT FOR FURTHER ASSESSMENT
--- NOTE | 2019-09-06 03:10 | NUR ---
SEEN BY RT WHILE AGO - NO FURTHER CHANGES IN O2 SET UP - PT'S O2 SAT GIANLUCA 94%- WILL CONT. TO MONITOR.
[2019-09-06] MEDS: ALBUTEROL SULFATE/IPRATROPIU 3 ML SOL IH SCH ×6 (03:13→23:49)
[2019-09-06] MEDS: ACETYLCYSTEINE 10% (100 MG/ML) 100 MG/ML VIAL INH SCH ×6 (03:14→23:49)
[2019-09-06 04:00] VITALS: BP 133/65
--- NOTE | 2019-09-06 04:00 | NUR ---
MADE ROUNDS , PT IS LYING ON PRONE POSITION - O2 SAT WNL . WILL CONT. TO MONITOR.
--- NOTE | 2019-09-06 06:00 | NUR ---
MADE ROUNDS . O2 SAT WNL , WILL CONT. TO MONITOR. NO COMPLAIN MADE .
[2019-09-06] MEDS: BLOOD GLUCOSE MONITORING 1 DEV DEV FS SCH ×4 (06:11→21:17)
[2019-09-06 06:59] LABS: BASOPHILS % (AUTO) 0.4 % (0.0-2.0); HEMATOCRIT 40.5 % (36-52); HEMOGLOBIN 13.8 g/dL (12.0-18.0); LYMPHOCYTES # (AUTO) 0.2 K/uL (2.0-11.5); LYMPHOCYTES % (AUTO) 1.6 % (20.5-51.1); MEAN CORPUSCULAR HEMOGLOBIN 32 pg (27-31); MEAN CORPUSCULAR HGB CONC 34 g/dL (33-37); MEAN CORPUSCULAR VOLUME 94.6 fL (80-94); MONOCYTES # (AUTO) 0.4 K/uL (0.8-1.0); MONOCYTES % (AUTO) 3.4 % (1.7-9.3); NEUTROPHILS # (AUTO) 10.1 K/uL (1.8-7.7); NEUTROPHILS % (AUTO) 94.6 % (42.2-75.2); PLATELET COUNT (AUTO) 181 K/uL (140-450); RED BLOOD CELL COUNT(AUTO) 4.28 MIL/uL (4.20-6.10); RED CELL DISTRIBUTION WIDTH 14.4 % (11.6-13.7); WHITE BLOOD COUNT (AUTO) 10.6 K/uL (4.8-10.8)
[2019-09-06 07:00] LABS: ALBUMIN 2.6 g/dL (3.4-5.0); ANION GAP 12.4 (8-16); CARBON DIOXIDE 27.5 mmol/L (21-32); CREATININE 0.9 mg/dL (0.6-1.3); POTASSIUM 3.9 mmol/L (3.5-5.1); TOTAL BILIRUBIN 0.6 mg/dL (0.0-1.0)
--- NOTE | 2019-09-06 07:10 | NUR ---
RECEIVED REPORT FROM NIGHT NURSE FOR CONTINUITY OF CARE, PT IS STABLE, PT [id number], PT SAMI SPEAKING, PT HAS RIGHT FA 20G INFUSING NS AT 30ML, PT ON 8L SIMPLE MASK OXYGEN, SKIN INTACT, BED IN LOW POSITION, SAFETY MEASURES IN PLACE, WILL INTRODUCE SELF, UPDATE WHITEBOARD, CALL LIGHT WITHIN REACH.
--- NOTE | 2019-09-06 07:19 | NUR ---
ENDORSED TO AM SHIFT - PT - STABLE .
--- NOTE | 2019-09-06 07:54 | NUR ---
PATIENT IN NEGATIVE PRESSURE ROOM HHN THERAPY GIVEN WITH BIPAP MASK OUTLINED IN THE COVID-19 [employer]AY MANAGEMENT [employer] + RNS ASCAR v1.09 MAY 2019 POST HHN THERAPY TOLERATED INCENTIVE SPIROMETRY THERAPY WELL WITHOUT INCIDENT PRODUCTIVE COUGH SMALL THICK YELLOW SECRETIONS (COLLECTION IN SPECIMEN CUP) ENCOURAGED PATIENT WITH ACKNOWLEDGEMENT TO USE INCENTIVE SPIROMETRY EVERY 1-2 HOURS WHILE AWAKE
[2019-09-06 08:00] VITALS: BP 134/54
[2019-09-06] MEDS: busPIRone 5 MG TAB PO SCH ×2 (08:30→21:03)
[2019-09-06] MEDS: ASCORBIC ACID 500 MG TAB PO SCH (08:31)
[2019-09-06] MEDS: ZINC SULF 220 MG CAP PO SCH (08:31)
[2019-09-06] MEDS: AZITHROMYCIN 250 MG TAB PO SCH (08:31)
[2019-09-06 08:42] LABS: PHOSPHORUS 2.9 mg/dL (2.5-4.9)
[2019-09-06] MEDS: DEXAMETHASONE 4 MG TAB PO SCH (08:47)
--- NOTE | 2019-09-06 08:50 | NUR ---
ADMINISTERED SCHEDULED MEDICATION, MEDICATION EDUCATION GIVEN, PT VERBALIZED UNDERSTANDING, PT IS STABLE, INCREASED O2 TO 9L PT O2 SATURATION DECREASED, PT REMOVED OXYGEN MASK TO TAKE MEDICATION CAUSING IT TO DECREASE OXYGEN SATURATION, WILL CONTINUE TO MONITOR, PT TOLERATED MEDICATION FINE, CALL LIGHT WITHIN REACH.
--- NOTE | 2019-09-06 10:50 | NUR ---
PT ON 9L OXIMIZER, WILL CONTINUE TO MONITOR OXYGEN STATUS. PT STABLE, CALL LIGHT WITHIN REACH.
[2019-09-06 12:00] VITALS: BP 138/69
--- NOTE | 2019-09-06 12:21 | NUR ---
FOUND PATIENT ON SUPPLEMENTAL OXYGEN AT 8 LPM VIA OXYMIZER SATURATION 87% RR 40 POST INCENTIVE SPIROMETRY SPONTANEOUS PRODUCTIVE COUGH MODERATE THICK YELLOW SECRETIONS PLACED ON SUPPLEMENTAL OXYGEN AT 8LPM VIA MASK
[2019-09-06] MEDS: NACL 0.9% 1,000 ML IV SCH (12:42)
[2019-09-06] MEDS: INSULIN LISPRO SLIDING SCALE 100 UNITS/ML VIAL SUBQ PRN ×2 (12:43→17:02)
--- NOTE | 2019-09-06 12:50 | NUR ---
ADMINISTERED 2 UNITS OF HUMALOG FOR BLOOD GLUCOSE OF 186, MEDICATION EDUCATION GIVEN, PT VERBALIZED UNDERSTANDING, PT IS STABLE, CALL LIGHT WITHIN REACH.
--- NOTE | 2019-09-06 13:32 | NUR ---
09/06/19 RD INITIAL ASSESSMENT COMPLETED PLEASE REFER TO NUTRITION ASSESSMENT UNDER CARE ACTIVITY FOR ESTIMATED NUTRITIONAL NEEDS. 1. RECOMMEND MECHANICAL SOFT REGULAR DIET TOLERATED 2. RECOMMEND ENSURE TID 3. ENCOURAGE PO INTAKE >75% 4. RD TO FOLLOW-UP 3-5 DAYS, MODERATE RISK SHARMIN ELIZABETH, RD
[2019-09-06 16:00] VITALS: BP 138/69
--- NOTE | 2019-09-06 17:02 | NUR ---
ADMINISTERED 4 UNITS OF HUMALOG FOR BLOOD GLUCOSE OF 246, MEDICATION EDUCATION GIVEN, PT VERBALIZED UNDERSTANDING, PT TOLERATED WELL, PT IS STABLE, CALL LIGHT WITHIN REACH.
--- NOTE | 2019-09-06 19:12 | NUR ---
GAVE REPORT TO NIGHT NURSE FOR CONTINUITY OF CARE, PT IS STABLE
--- NOTE | 2019-09-06 19:15 | NUR ---
RECEIVED REPORT FROM AM SHIFT RN. PATIENT IS LYING IN BED WITH SIMPLE MASK AT 9LPM WITH SATURATION OF 90%. NO SOB. DENIES PAIN. TELE MONITOR ATTACHED. RFA 20G IV SITE NOTED, INTACT, INFUSING NS AT 30 CC/HR. ASSESSMENT DONE. DROPLET ISOLATION OBSERVED AT ALL TIMES. PLAN OF CARE WAS DISCUSSED. CALL LIGHT WITHIN REACH. WILL CONTINUE TO MONITOR.
[2019-09-06 20:00] VITALS: BP 148/69
--- NOTE | 2019-09-06 20:38 | NUR ---
PT SPO2 81% UPON ARRIVAL ON 8L MASK BUT WAS NOT ON PROPERLY Tx WAS GIVEN AND SPO2 CAME UPTO 91% PT WAS PLACED BACK ON O2 MASK @ 9L PT TOLERATED Tx WELL W/ STRONG NON-PROD COUGH WILL CONTINUE TO MONITOR
[2019-09-06] MEDS ORDERED: LOVENOX 1MG/KG Q12H SUBQ SCH (21:00)
[2019-09-06] MEDS: ENOXAPARIN 80 MG/0.8 ML SYR SUBQ SCH (21:03)
--- NOTE | 2019-09-06 21:17 | NUR ---
BLOOD SUGAR IS 156, INSULIN NOT GIVEN. OTHER DUE MED GIVEN ORDERED. MED EDUCATION PROVIDED.
[2019-09-06] MEDS: guaiFENesin 20 MG/ML UDC PO PRN (22:37)
[2019-09-07] VITALS: BP 142/70
--- NOTE | 2019-09-07 | NUR ---
PATIENT IS SLEEPING AT THIS TIME. NO SOB
[2019-09-07] MEDS: ALBUTEROL SULFATE/IPRATROPIU 3 ML SOL IH SCH (02:04)
--- NOTE | 2019-09-07 02:06 | NUR ---
PT SPO2 91% SLEEPING W/ NO SIGNS OF DISTRESS PT WAS WOKEN UP AND PT REFUSED Tx AND DENIES ANY SOB AT THIS TIME DR VILLARREAL WAS PRESENT PT ON 10L SIMPLE MASK WILL COMNTINUE TO MONITOR
[2019-09-07] MEDS ORDERED: ALBUTEROL SULFATE/IPRATROPIU 3 ML SOL IH PRN (03:10)
--- NOTE | 2019-09-07 03:46 | NUR ---
PT RESTING COMFORTABLY ON 10L SIMPLE MASK SPO2 91% RR 28 HR 61 NO APPARENT SIGNS OF DISTRESS
[2019-09-07 04:00] VITALS: BP 136/74
[2019-09-07] MEDS: BLOOD GLUCOSE MONITORING 1 DEV DEV FS SCH ×4 (06:35→21:00)
--- NOTE | 2019-09-07 06:50 | NUR ---
PATIENT IS STABLE. ENDORSED TO AM SHIFT RN FOR CONTINUITY OF CARE.
--- NOTE | 2019-09-07 07:00 | NUR ---
RECEIVED REPORT FROM LATHING SUPERVISOR RN, RAKESH, FOR CONTINUITY OF CARE. PATIENT IS LYING IN BED WITH SIMPLE MASK AT 10LPM WITH SATURATION OF 91%. NO SOB. DENIES PAIN. TELE MONITOR ATTACHED. RFA 20G IV SITE NOTED, INTACT, INFUSING NS AT 30 ML/HR. ASSESSMENT DONE. DROPLET ISOLATION OBSERVED AT ALL TIMES. PLAN OF CARE WAS DISCUSSED. CALL LIGHT WITHIN REACH. WILL CONTINUE TO MONITOR.
[2019-09-07 07:06] LABS: BASOPHILS % (AUTO) 0.4 % (0.0-2.0); HEMATOCRIT 39.6 % (36-52); HEMOGLOBIN 13.6 g/dL (12.0-18.0); LYMPHOCYTES # (AUTO) 0.2 K/uL (2.0-11.5); MEAN CORPUSCULAR HEMOGLOBIN 32 pg (27-31); MEAN CORPUSCULAR HGB CONC 34 g/dL (33-37); MEAN CORPUSCULAR VOLUME 94.3 fL (80-94); MONOCYTES # (AUTO) 0.4 K/uL (0.8-1.0); MONOCYTES % (AUTO) 4.1 % (1.7-9.3); NEUTROPHILS # (AUTO) 9.6 K/uL (1.8-7.7); NEUTROPHILS % (AUTO) 93.5 % (42.2-75.2); PLATELET COUNT (AUTO) 205 K/uL (140-450); RED CELL DISTRIBUTION WIDTH 14.2 % (11.6-13.7); WHITE BLOOD COUNT (AUTO) 10.3 K/uL (4.8-10.8)
[2019-09-07 07:20] LABS: ALBUMIN 2.3 g/dL (3.4-5.0); ANION GAP 11.2 (8-16); CARBON DIOXIDE 26.8 mmol/L (21-32); CREATININE 0.9 mg/dL (0.6-1.3); TOTAL BILIRUBIN 0.6 mg/dL (0.0-1.0)
[2019-09-07 07:41] LABS: MAGNESIUM 2.1 mg/dL (1.8-2.4); PHOSPHORUS 3.2 mg/dL (2.5-4.9)
[2019-09-07 08:00] VITALS: BP 148/71
[2019-09-07] MEDS ORDERED: ACETYLCYSTEINE 10% (100 MG/ML) 100 MG/ML VIAL INH SCH (08:00)
[2019-09-07] MEDS: DEXAMETHASONE 4 MG TAB PO SCH (08:34)
[2019-09-07] MEDS: busPIRone 5 MG TAB PO SCH ×2 (08:34→22:43)
[2019-09-07] MEDS: ASCORBIC ACID 500 MG TAB PO SCH (08:34)
[2019-09-07] MEDS: AZITHROMYCIN 250 MG TAB PO SCH (08:35)
[2019-09-07] MEDS: ZINC SULF 220 MG CAP PO SCH (08:35)
--- NOTE | 2019-09-07 08:35 | NUR ---
MORNING MEDICATIONS GIVEN. PATIENTS REMAIN TACHYPNEIC WITH SAO2 AT 91% ON 15LPM O2 VIA SIMPLE MASK. RT IS AWARE. WILL CONTINUE TO MONITOR.
[2019-09-07] MEDS: ENOXAPARIN 80 MG/0.8 ML SYR SUBQ SCH ×2 (08:37→22:32)
--- NOTE | 2019-09-07 09:00 | NUR ---
CALLED RT ABOUT PATIENT DESATURATION AT 86%. WILL CONTINUE TO MONITOR.
[2019-09-07 12:00] VITALS: BP 122/66
[2019-09-07] MEDS: INSULIN LISPRO SLIDING SCALE 100 UNITS/ML VIAL SUBQ PRN ×2 (12:14→22:27)
--- NOTE | 2019-09-07 12:15 | NUR ---
2 UNITS OF INSULIN GIVEN FOR BLOOD GLUCOSE OF 165. NO SIGNS OF DISTRESS NOTED. V/S TAKEN AND IS WNL. PATIENTS REMAIN TACHYPNIC AT 15LPM O2 VIA SIMPLE MASK. RT IS AWARE. WILL CONTINUE TO MONITOR.
[2019-09-07] MEDS: guaiFENesin 20 MG/ML UDC PO PRN (12:19)
[2019-09-07] MEDS: NACL 0.9% 1,000 ML IV SCH (13:23)
--- NOTE | 2019-09-07 14:10 | NUR ---
PATIENT IS PLACED ON 15LPM VIA OXIMIZER WITH SAO2 AT 95%. NO SIGNS OF DISTRESS NOTED. PATIENT RESPIRATIONS HAS DECREASED AND NORMALIZED. PATIENT STATES BEING MORE COMFORTABLE AND VERBALIZES NO PAIN. WILL CONTINUE TO MONITOR.
[2019-09-07] MEDS ORDERED: ALBUTEROL HFA MDI 90 MCG/ACTUATION 8 GM INH PRN (15:25)
[2019-09-07 16:00] VITALS: BP 131/69
--- NOTE | 2019-09-07 16:55 | NUR ---
BLOOD GLUCOSE CHECK, 137, NO INSULIN COVERAGE NEEDED. V/S TAKEN AND IS WNL. WILL CONTINUE TO MONITOR.
--- NOTE | 2019-09-07 19:30 | NUR ---
RECEIVED REPORT AT BEDSIDE FOR CONTINUITY OF CARE, PT IN STABLE CONDITION . PT AOX4 ON 8 LITERS OF 02 AT OXYMIZER. WILL CONTINUE TO MONITOR.
--- NOTE | 2019-09-07 20:04 | NUR ---
ENDORSED TO INTEGRATED MARKETING SPECIALIST CHARGE NURSE, CORAL, FOR CONTINUITY OF CARE.
--- NOTE | 2019-09-07 21:00 | NUR ---
PT WAS STARING TO DESATURATE WITH 8 LITERS OXYMIZER AND WAS PLACED ON 15 LITERS 02 .
--- NOTE | 2019-09-07 22:30 | NUR ---
RT CALLED DUE TO PT STATING AROUND 88-86%, RT SUGGESTED HI FLOW NASAL CANNULA. SAID THEY WILL VISIT WITH PT.
[2019-09-07] MEDS ORDERED: ALBUTEROL SULFATE/IPRATROPIU 3 ML SOL IH SCH (23:00)
[2019-09-08] VITALS (10 sets, daily range): BP systolic 110–149; BP diastolic 53–88
--- NOTE | 2019-09-08 00:57 | NUR ---
RECEIVED REPORT FROM AM SHIFT. PT SEEN AND ASSESSED. FOUND PT ON 3L WITH SPO2 OF 100%. TITRATED O2 TO 2L WITH SPO2 OF 98%. RALES BREATH SOUNDS ON AUSCULTATION. NOTICED ADEQUATE BILATERAL CHEST RISE AND AND FALL. PT IS IN NO APPARENT RESPIRATORY DISTRESS AT THIS TIME AND NO C/O SOB. HHN TX NOT INDICATED AT THIS TIME. WILL CONTINUE TO MONITOR PT.
--- NOTE | 2019-09-08 01:00 | NUR ---
PT PLACED ON 15V LITERS NON REBREATHER DUE TO DESTATURING. WILL CONTINUE TO MONITIOR FOR 02 SATUARTION.
--- NOTE | 2019-09-08 01:45 | NUR ---
PT NOTED TO BE SLIPPING FROM THE MID TO HIGH 90;S TO THE LOW 90'S THEN THE MID 80'S. PT TO BE TRANSFERRED TO ICU FOR HIGHER LEVEL OF MONITORING.
--- NOTE | 2019-09-08 02:55 | NUR ---
RECEIVED REPORT FROM DEVELOPMENT AND HOUSING DIRECTOR PT ON 15 L NONREBREATHER, PT IS ALERT AND ORIENTED, ABLE TO FOLLOW COMMANDS, LUNG SOUNDS DIMINISHED S1 AND S2 HEART SOUNDS HEARD PULSE PALPABLE, BOWEL SOUNDS ACTIVE, PT DENIES PAIN, EYES PERRLA 3MM PT RECEIVING NS 30 ML/HR, SKIN IS INTACT, PT DENIES ANY PREVIOUS MEDICAL HX , SAFETY PROTOCOLS IN PLACE WILL CONTINUE TO MONITOR
--- NOTE | 2019-09-08 03:00 | NUR ---
PT TRANSFERRED TO ICU DUE TO DESATURATING ON 15 LITERS NON REBREATHER.
--- NOTE | 2019-09-08 03:24 | NUR ---
PT O2 SATURATIONS REMAIN AROUND 83%-88%, PT AWAKE AND FOLLOWING COMMANDS, RT CALLED TO PT BEDSIDE TO CHECK ON PT
--- NOTE | 2019-09-08 03:33 | NUR ---
PT LAYING IN PRONE POSITION NO SIGNS OF DISTRESS WILL CONTINUE TO MONITOR PT
--- NOTE | 2019-09-08 06:01 | NUR ---
RT CALLED TO BEDSIDE AT APPROXIMATELY 0330 FOR DESAT, PATIENT WAS STARTED ON HFNC 30L AND FiO2 95%. PT WAS ASSISTED TO PRONE POSITION. SPO2 INCREASED TO 98%. WILL CONTINUE TO MONITOR.
[2019-09-08 06:27] LABS: HEMATOCRIT 39.7 % (36-52); HEMOGLOBIN 13.5 g/dL (12.0-18.0); MEAN CORPUSCULAR HEMOGLOBIN 32 pg (27-31); MEAN CORPUSCULAR HGB CONC 34 g/dL (33-37); MEAN CORPUSCULAR VOLUME 94.1 fL (80-94); PLATELET COUNT (AUTO) 192 K/uL (140-450); RED BLOOD CELL COUNT(AUTO) 4.22 MIL/uL (4.20-6.10); RED CELL DISTRIBUTION WIDTH 14.2 % (11.6-13.7); WHITE BLOOD COUNT (AUTO) 13.4 K/uL (4.8-10.8)
[2019-09-08] MEDS: BLOOD GLUCOSE MONITORING 1 DEV DEV FS SCH ×4 (06:32→20:46)
[2019-09-08 06:57] LABS: PHOSPHORUS 3.9 mg/dL (2.5-4.9)
[2019-09-08 07:05] LABS: ALBUMIN 2.4 g/dL (3.4-5.0); ANION GAP 12.9 (8-16); CARBON DIOXIDE 24.6 mmol/L (21-32); CREATININE 0.8 mg/dL (0.6-1.3); POTASSIUM 4.5 mmol/L (3.5-5.1); TOTAL BILIRUBIN 0.6 mg/dL (0.0-1.0)
[2019-09-08 07:22] LABS: LYMPHOCYTES % (MANUAL) 3 % (20-46); MONOCYTES % (MANUAL) 4 % (5-12)
--- NOTE | 2019-09-08 07:30 | NUR ---
RECEIVED BEDSIDE REPORT FROM WELDING MACHINE OPERATOR PLASMA ARC NURSE, PT RESTING, NO DISTRESS NOTED, PT ALERT ORIENTED, ABLE TO LET NEEDS KNOWN, IV TO R AC 28 G, PATENT, INTACT, INFUSING NS@ 30ML/HR, INFUSING WELL, PT ON HIGH FLOW OXYGEN, 30LPM FIO2 95%, NO SOB NOTED, SATURATION AT 90%, INITIAL ASSESSMENT DONE, ALL SAFETY PRECAUTION MET, CALL LIGHT WITHIN REACH, WILL CONTINUE TO MONITOR.
--- NOTE | 2019-09-08 08:20 | NUR ---
PT REMAINS ON HI FLOW AT THIS TIME. 30L, 92% FIO2. PT SPO2 READING 90-91%. RESTING COMFORTABLE, ALERT AND AWAKE, NO DISTRESS NOTED AT THIS TIME.
[2019-09-08] MEDS: busPIRone 5 MG TAB PO SCH ×2 (09:48→20:20)
[2019-09-08] MEDS: AZITHROMYCIN 250 MG TAB PO SCH (09:48)
[2019-09-08] MEDS: ZINC SULF 220 MG CAP PO SCH (09:48)
[2019-09-08] MEDS: ASCORBIC ACID 500 MG TAB PO SCH (09:48)
[2019-09-08] MEDS: DEXAMETHASONE 4 MG TAB PO SCH (09:53)
[2019-09-08] MEDS: ENOXAPARIN 80 MG/0.8 ML SYR SUBQ SCH ×2 (09:54→20:20)
--- NOTE | 2019-09-08 09:54 | NUR ---
DUE MEDICATION ADMINISTERED, PT TOLERATED WELL, NO DISTRESS NOTED, CALL LIGHT WITHIN REACH, WILL CONTINUE TO MONITOR.
--- NOTE | 2019-09-08 11:52 | NUR ---
BLOOD SUGAR CHECKED 130, NO INSULIN COVERAGE, PT SLEEPING, WILL CONTINUE TO MONITOR.
[2019-09-08] MEDS: NACL 0.9% 1,000 ML IV SCH (13:32)
--- NOTE | 2019-09-08 17:20 | NUR ---
CONVALESCENT PLASMA INFUSION STARTED, PT TOLERATED WELL, NO DISTRESS NOTED, WILL CONTINUE TO MONITOR.
--- NOTE | 2019-09-08 17:35 | NUR ---
PT STILL REMAINS ON HIGH FLOW, AWAKE AND ALERT. MAINTAINING ACCEPTABLE SATURATION, SHOWING NO SIGN OF DISTRESS AT THIS TIME.
--- NOTE | 2019-09-08 18:20 | NUR ---
PLASMA INFUSION COMPLETED, PT TOLERATED WELL, NO DISTRESS NOTED, WILL CONTINUE TO MONITOR.
--- NOTE | 2019-09-08 19:23 | NUR ---
ENDORSED PT TO CIGAR TOBACCO PROCESSING SUPERVISOR NURSE FOR CONTINUOUS OF CARE.
--- NOTE | 2019-09-08 19:24 | NUR ---
REPORT RECEIVED FROM AM NURSE AT BEDSIDE. PT IN STABLE CONDITION. AAOX4. NO COMPLAINTS OF PAIN. NO SOB BUT PATIENT O2 SATURATION@83% ON 15L HIGH FLOW MASK. AFEBRILE. PT IS AMBULATORY. PT USES URINAL. PT ON REGULAR MECHANICAL SOFT DIET. IV SITE R AC 20G RUNNING NS@30ML/HR PATENT AND INTACT. L FA 20G SL PATENT AND INTACT. SKIN WARM, DRY, AND INTACT WITH NO OPEN WOUNDS. BED LOCKED IN LOW POSITION. CALL [place] WITHIN REACH. SAFETY PRECAUTION IN PLACE. ALL NEEDS MET AT THIS TIME.
--- NOTE | 2019-09-08 19:34 | NUR ---
RECEIVED REPORT FROM AM SHIFT. PATIENT SEEN AND ASSESSED. AUSCULTATION REVEALS BILATERAL RALES BREATH SOUNDS. NOTICED ADEQUATE BILATERAL CHEST RISE AND FALL. PATIENT ON HFNC SETTINGS 30L AND FiO2 95% WITH SPO2 OF 90%. PATIENT IS IN NO RESPIRATORY DISTRESS AT THIS TIME. PRN TX NOT INDICATED AT THIS TIME. WILL CONTINUE TO MONITOR PATIENT.
--- NOTE | 2019-09-08 20:20 | NUR ---
BUSPAR GIVEN PO. LOVENOX GIVEN SUBQ. BS 181. 2 UNITS OF HUMALOG GIVEN.
[2019-09-08] MEDS: INSULIN LISPRO SLIDING SCALE 100 UNITS/ML VIAL SUBQ PRN (20:49)
--- NOTE | 2019-09-08 22:00 | NUR ---
PT IN STABLE CONDITION. NO S/S OF DISTRESS NOTED.
--- NOTE | 2019-09-08 23:40 | NUR ---
PT MOVED FROM BED 4 TO BED 1.
--- NOTE | 2019-09-08 23:44 | NUR ---
PROPOFOL NEW BOTTLE HUNG FOR CONTINUOUS DRIP. MORPHINE GIVEN FOR 4/10 GENERALIZED PAIN. TYL GIVEN THROUGH GTUBE FOR FEVER OF 100.8. BS 365. 10 UNITS OF HUMALOG GIVEN. FEEDING STARTED@10ML/HR PER ORDER. Addendum: 09/09/19 at 0012 by Tung Bustos RN WRONG PATIENT.
[2019-09-09] VITALS (15 sets, daily range): BP systolic 131–171; BP diastolic 49–89
--- NOTE | 2019-09-09 01:45 | NUR ---
WHEN PATIENT IS SLEEPING SATURATION IS ABOVE 90%. PT SLEEPING COMFORTABLY. NO S/S OF DISTRESS NOTED.
--- NOTE | 2019-09-09 04:30 | NUR ---
PT AWAKE AND ALERT YELLING OUT THE ROOM. PT IS NON COMPLIANT WHEN KEEPING THE HIGH FLOW MASK ON. PT SATURATION AROUND 80%.
[2019-09-09] MEDS: BLOOD GLUCOSE MONITORING 1 DEV DEV FS SCH ×4 (06:08→20:38)
--- NOTE | 2019-09-09 06:10 | NUR ---
BS 120. NO INSULIN COVERAGE NEEDED.
[2019-09-09 06:21] LABS: BASOPHILS % (AUTO) 0.3 % (0.0-2.0); HEMATOCRIT 42.4 % (36-52); HEMOGLOBIN 14.6 g/dL (12.0-18.0); LYMPHOCYTES # (AUTO) 0.2 K/uL (2.0-11.5); LYMPHOCYTES % (AUTO) 1.8 % (20.5-51.1); MEAN CORPUSCULAR HEMOGLOBIN 32 pg (27-31); MEAN CORPUSCULAR HGB CONC 35 g/dL (33-37); MONOCYTES # (AUTO) 0.4 K/uL (0.8-1.0); NEUTROPHILS # (AUTO) 12.2 K/uL (1.8-7.7); NEUTROPHILS % (AUTO) 94.9 % (42.2-75.2); PLATELET COUNT (AUTO) 132 K/uL (140-450); RED BLOOD CELL COUNT(AUTO) 4.51 MIL/uL (4.20-6.10); RED CELL DISTRIBUTION WIDTH 14.5 % (11.6-13.7); WHITE BLOOD COUNT (AUTO) 12.9 K/uL (4.8-10.8)
[2019-09-09 07:01] LABS: ALBUMIN 2.5 g/dL (3.4-5.0); ANION GAP 13.9 (8-16); CARBON DIOXIDE 24.3 mmol/L (21-32); CREATININE 0.9 mg/dL (0.6-1.3); POTASSIUM 4.2 mmol/L (3.5-5.1); TOTAL BILIRUBIN 0.8 mg/dL (0.0-1.0)
--- NOTE | 2019-09-09 07:16 | NUR ---
REPORT GIVEN TO AM NURSE AT BEDSIDE. PT IN STABLE CONDITION.
--- NOTE | 2019-09-09 07:30 | NUR ---
RECEIVE FROM ABEL DODD PT IS AWAKE AND ALERT ON HIGH FLOW AT 30 L , IV FLUID RT, AC INFUSE NS AT 30ML/HR , HE VOID IN TO URENAL.
[2019-09-09] MEDS: busPIRone 5 MG TAB PO SCH ×2 (08:56→20:09)
[2019-09-09] MEDS: ZINC SULF 220 MG CAP PO SCH (08:57)
[2019-09-09] MEDS: ASCORBIC ACID 500 MG TAB PO SCH (08:57)
[2019-09-09] MEDS: DEXAMETHASONE 4 MG TAB PO SCH (08:58)
[2019-09-09] MEDS: ENOXAPARIN 80 MG/0.8 ML SYR SUBQ SCH ×2 (08:59→20:38)
--- NOTE | 2019-09-09 12:00 | NUR ---
RESTING WELL REGULAR DIET TAKEN ABOUT 75%
--- NOTE | 2019-09-09 13:00 | NUR ---
PT O2 SAT IS 80-85 ASK PT GO TO PRONE POSITION O2 SAT IMPROVED TO ABOVE 90%.
[2019-09-09] MEDS: NACL 0.9% 1,000 ML IV SCH (13:23)
[2019-09-09] MEDS: INSULIN LISPRO SLIDING SCALE 100 UNITS/ML VIAL SUBQ PRN (14:38)
--- NOTE | 2019-09-09 18:00 | NUR ---
BLOOD GLUCOSE 134.NO INSULIN COVER NEEDED, DINNER TOOK ABOUT 75%
--- NOTE | 2019-09-09 19:20 | NUR ---
REPORT GIVED TO MADI DODD.
--- NOTE | 2019-09-09 19:30 | NUR ---
RECEIVED REPORT FROM DAY SHIFT NO ACUTE DISTRESS NOTED. PT AWAKE SITTING UP IN BED. AAOX3 FOLLOWING COMMANDS, ANXIOUS @ TIMES. PT ON HI FLOW 40L @ 95% FIO2. DIMINISHED BREATH SOUNDS. ABD SOFT NON DISTENDED, PT TOLERATING PO INTAKE. PT VOIDING IN URINAL. PERIPHERAL IV TO R FA INTACT PATENT. SKIN INTACT. BED LOCKED IN LOWEST POSITION. HOB GREATER THAN 30 DEGREES.
--- NOTE | 2019-09-09 20:42 | NUR ---
PT WAS PRONED DUE TO SPO2 IN LOW 80S PT STILL SAT LOW 80S W/ HFNC 45% IN PRONE POSITION PT PLACED ON NRB AND SPO2 IS CURRENTLY 93% STILL IN PRONE POSITION Addendum: 09/09/19 at 2147 by Frandy Jorge Jr RT DR HUBBARD IS AWARE
--- NOTE | 2019-09-09 21:02 | NUR ---
PT SPO2 96% WILL CONTINUE TO MONITOR
[2019-09-09] MEDS ORDERED: LORazepam 2 MG/ML VIAL IVP ONE (22:25)
[2019-09-10] VITALS (92 sets, daily range): BP systolic 77–180; BP diastolic 47–114
[2019-09-10] MEDS ORDERED: LORazepam 2 MG/ML VIAL ONE (00:16)
--- NOTE | 2019-09-10 00:55 | NUR ---
PT DESAT TO 80%, SWITCHED FROM NON REBREATHER BACK TO HI FLOW @ 95% PREVIOUS SETTINGS. PT TOLERATING O2 VIA HI FLOW NASAL CANNULA, TOLERATING @ 92%, NO S/S OF RESPIRATORY DISTRESS WILL CONTINUE TO OBSERVE.
--- NOTE | 2019-09-10 02:30 | NUR ---
PT CONFUSED, TRYING TO GET UP OUT OF BED, NOT FOLLOWING COMMANDS, PULLING O2 MASK OFF. ABG ORDERED; UPDATED DR. HUBBARD, DISCUSSED WITH ERMD , DR ACOSTA. WILL SETUP FOR INTUBATION
[2019-09-10] MEDS ORDERED: SUCCINYLCHOLINE CHLORIDE 200 MG/10 ML VIAL IVP ONE (02:45)
[2019-09-10] MEDS ORDERED: ETOMIDATE 20 MG/10 ML VIAL IVP ONE (02:45)
--- NOTE | 2019-09-10 02:45 | NUR ---
DR ACOSTA @ BEDSIDE, WITH RT BRENDA OLIVO @ BEDSIDE, DISCUSSED WITH PT REGARDING INTUBATION 0250: 20 MG ETOMIDATE IVP, 0252 100 MG SUCCINYLCHOLINE IVP GIVEN. 0253: PT PARALYZED; DR HUBBARD INTUBATED PT USING 7.5 MM ETT SUCCESSFULLY 25 CM @ TEETH; CONFIRMED VIA CO2 INDICATOR WITH COLOR CHANGE. RT BRENDA USING AMBU BAG TO VENTILATE/OXYGENATE. 0255: VENT SETTIN% FIO2 TV 450 R 16 PEEP 10; PROPOFOL STARTED PER PROTOCOL DRY WEIGHT 74 KG. GOAL: RASS-3.
[2019-09-10] MEDS ORDERED: PROPOFOL 1000 MG/100 ML PREMIX 100 ML IV ONE (03:14)
[2019-09-10] MEDS: PROPOFOL 1000 MG/100 ML PREMIX 100 ML IV PRN ×4 (03:20→22:58)
[2019-09-10] MEDS ORDERED: LORazepam 2 MG/ML VIAL IM/IVP PRN (03:25)
[2019-09-10] MEDS ORDERED: MORPHINE SULFATE 4 MG/ML SYR IVP PRN (03:45)
[2019-09-10] MEDS ORDERED: MORPHINE SULFATE 4 MG/ML SYR ONE (03:47)
--- NOTE | 2019-09-10 04:30 | NUR ---
DYER CATH INSERTED; TOLERATED PROCEDURE. RESTRAINTS IN PLACE BILATERAL SOFT WRIST, UPDATED DR. HUBBARD.
--- NOTE | 2019-09-10 06:00 | NUR ---
ABG DRAWN AND RESULTS ARE FOLLOWS PH 7.340 PCO2 47.3 PO2 125.7 HCO3 24.9 BE -1.2 SO2 97.7 FO2HB 96.9 FCOHB 0.8 FMETHB 0.0 FHHB 2.3 FIO2 100% RESULTS WERE PASSED ON TO DAYSHIFT
[2019-09-10 06:34] LABS: ALBUMIN 2.2 g/dL (3.4-5.0); ANION GAP 11.8 (8-16); CARBON DIOXIDE 25.7 mmol/L (21-32); CREATININE 1.1 mg/dL (0.6-1.3); POTASSIUM 4.5 mmol/L (3.5-5.1); TOTAL BILIRUBIN 1.1 mg/dL (0.0-1.0)
[2019-09-10 06:50] LABS: BASOPHILS % (AUTO) 0.1 % (0.0-2.0); HEMOGLOBIN 14.7 g/dL (12.0-18.0); LYMPHOCYTES # (AUTO) 0.2 K/uL (2.0-11.5); LYMPHOCYTES % (AUTO) 1.1 % (20.5-51.1); MEAN CORPUSCULAR HEMOGLOBIN 32 pg (27-31); MEAN CORPUSCULAR HGB CONC 33 g/dL (33-37); MEAN CORPUSCULAR VOLUME 96.6 fL (80-94); MONOCYTES # (AUTO) 0.4 K/uL (0.8-1.0); NEUTROPHILS # (AUTO) 17.2 K/uL (1.8-7.7); NEUTROPHILS % (AUTO) 96.8 % (42.2-75.2); RED BLOOD CELL COUNT(AUTO) 4.55 MIL/uL (4.20-6.10); RED CELL DISTRIBUTION WIDTH 14.1 % (11.6-13.7)
--- NOTE | 2019-09-10 07:00 | NUR ---
DR. EWING @ BEDSIDE. UPDATED DR EWING ABOUT PT CONDITION. NO ACUTE CHANGE/DISTRESS NOTED WILL CONTINUE TO OBSERVE.
[2019-09-10 07:14] LABS: WHITE BLOOD COUNT (AUTO) 17.7 K/uL (4.8-10.8)
[2019-09-10 07:15] LABS: PLATELET COUNT (AUTO) 68 K/uL (140-450)
[2019-09-10] MEDS: BLOOD GLUCOSE MONITORING 1 DEV DEV FS SCH ×4 (07:54→20:24)
[2019-09-10] MEDS ORDERED: ENOXAPARIN 100 MG/ML SYR SUBQ ONE (08:46)
[2019-09-10] MEDS: ENOXAPARIN 80 MG/0.8 ML SYR SUBQ SCH ×2 (09:00→20:39)
--- NOTE | 2019-09-10 09:00 | NUR ---
PT TURNED AND REPOSITIONED. FLACC 0. WILL CONTINUE TO OBSERVE.
[2019-09-10] MEDS: busPIRone 5 MG TAB PO SCH ×2 (09:39→20:38)
[2019-09-10] MEDS: ASCORBIC ACID 500 MG TAB PO SCH (09:42)
[2019-09-10] MEDS: DEXAMETHASONE 4 MG TAB PO SCH (09:42)
[2019-09-10] MEDS: ZINC SULF 220 MG CAP PO SCH (09:43)
--- NOTE | 2019-09-10 11:01 | NUR ---
RECEIVED BEDSIDE REPORT FROM MADI DODD, FOR CONTINUOUS OF CARE. PT RESTING, NO DISTRESS NOTED, WILL CONTINUE TO MONITOR.
--- NOTE | 2019-09-10 13:38 | NUR ---
09/10/19 RD FOLLOW UP COMPLETED PLEASE REFER TO NUTRITION ASSESSMENT UNDER CARE ACTIVITY FOR ESTIMATED NUTRITIONAL NEEDS. 1. RECOMMEND ENTERAL NUTRITION WITH VITAL 1.2 @ 60 ML/HR X 24 HR GOAL. START AT 10 ML INCREASE BY 10 ML Q4H. -THIS WILL PROVIDE 1728 YASMIN AND 108 GM OF PROTEIN WHICH MEETS 100% OF ESTIMATED CALORIE AND PROTEIN NEEDS 2. RECOMMEND FREE WATER FLUSH OF 95 ML Q4H 3. CONTINUE VITAMIN C AND ZINC 4. RD TO FOLLOW-UP 2-3 DAYS, HIGH RISK SHARMIN ELIZABETH RD
[2019-09-10] MEDS: fentaNYL citrate 1 MG in NACL 0.9% 80 ML IV PRN (15:00)
--- NOTE | 2019-09-10 15:08 | NUR ---
PT AGITATED, TRYING TO GET OUT OF BED, PROPOFOL DRIP ALREADY INCREASED, FENTANYL DRIP STARTED, ATIVAN ORDERED ADMINISTERED, PT TOLERATED WELL, WILL CONTINUE TO MONITOR.
--- NOTE | 2019-09-10 16:00 | NUR ---
PT IV TO THE R ARM LEAKING, IV TAKEN OUT, CATH INTACT, NEW IV INSERTED TO L UA 18G AND L FA 20G, PATENT INTACT, GOOD BLOOD DRAW, WILL CONTINUE TO MONITOR.
--- NOTE | 2019-09-10 16:30 | NUR ---
TUBE FEEDING STARTED, PT TOLERATED WELL, NO DISTRESS NOTED, WILL CONTINUE TO MONITOR.
[2019-09-10] MEDS: NACL 0.9% 1,000 ML IV SCH (17:42)
--- NOTE | 2019-09-10 19:30 | NUR ---
ENDORSED PT TO ENDBAND SIZER NURSE, FOR CONTINUOUS OF CARE
--- NOTE | 2019-09-10 19:35 | NUR ---
RECEIVED PT FROM DAY SHIFT RN, PT SEDATED RASS -3 74 KG, PT ON PROPOFOL 30MCG/KG/HR, FENTANYL 0.5 MCG/KG/HR, ETT TO VENT AC/VC FIO2 70% VT 450 RR 16 PEEP 10, LUNG SOUNDS DIMINISHED, S1 AND S2 HEART SOUNDS HEARD, BOWEL SOUNDS PRESENT, EYES PERRL 3MM, DYER CATHETER DRAINING CLEAR DARK YELLOW URINE, SAFETY PROTOCOLS IN PLACE WILL CONTINUE TO MONITOR PT
--- NOTE | 2019-09-10 20:00 | NUR ---
RECEIVED PT ON DOCUMENTED VENT SETTINGS. VENT PLUGGED INTO RED OUTLET. BMV AT BEDSIDE.ETT SECURED. ALARMS SET. SX SCANT AMOUNT OF SECRETION. PT IS IN NO DISTRESS. WILL CONTINUE TO MONITOR.
--- NOTE | 2019-09-10 20:39 | NUR ---
KRIS HELD FOR LOW PLT OF 68 PER MD ORDERS
[2019-09-11] VITALS (104 sets, daily range): BP systolic 106–164; BP diastolic 52–77
--- NOTE | 2019-09-11 | NUR ---
ORAL CARE PROVIDED, PT REPOSITIONED, NO SIGNS OF DISTRESS WILL CONTINUE TO MONITOR PT
[2019-09-11] MEDS: fentaNYL citrate 1 MG in NACL 0.9% 80 ML IV PRN ×2 (02:21→13:59)
[2019-09-11] MEDS: PROPOFOL 1000 MG/100 ML PREMIX 100 ML IV PRN ×3 (03:44→16:52)
--- NOTE | 2019-09-11 04:15 | NUR ---
PT REPOSITIONED, ORAL CARE PROVIDED, NO SIGNS OF DISTRESS WILL CONTINUE TO MONITOR PT
[2019-09-11 05:53] LABS: MEAN CORPUSCULAR HEMOGLOBIN 32 pg (27-31); MEAN CORPUSCULAR HGB CONC 33 g/dL (33-37); MEAN CORPUSCULAR VOLUME 96.2 fL (80-94); PLATELET COUNT (AUTO) 43 K/uL (140-450); RED BLOOD CELL COUNT(AUTO) 4.06 MIL/uL (4.20-6.10); RED CELL DISTRIBUTION WIDTH 14.6 % (11.6-13.7); WHITE BLOOD COUNT (AUTO) 11.1 K/uL (4.8-10.8)
[2019-09-11 06:05] LABS: ALBUMIN 1.9 g/dL (3.4-5.0); ANION GAP 10.3 (8-16); CARBON DIOXIDE 32.2 mmol/L (21-32); CREATININE 1.1 mg/dL (0.6-1.3); POTASSIUM 5.5 mmol/L (3.5-5.1); TOTAL BILIRUBIN 0.4 mg/dL (0.0-1.0)
[2019-09-11 06:14] LABS: PROTHROMBIN TIME 11.3 secs (10.8-13.4)
[2019-09-11 06:55] LABS: LYMPHOCYTES % (MANUAL) 2 % (20-46); MONOCYTES % (MANUAL) 3 % (5-12)
--- NOTE | 2019-09-11 07:15 | NUR ---
ENDORSED PT TO DAYSHIFT RN FOR CONTINUED CARE
--- NOTE | 2019-09-11 07:16 | NUR ---
RECEIVED BEDSIDE REPORT FROM BURR MACHINE OPERATOR NURSE, PT SEDATED TO RASS -3, DRY WEIGHT 74KG, IV TO R WRIST 20G PATENT INTACT, SL, L UPPER ARM 18G PATENT INTACT, INFUSING PROPOFOL AT 35MCG/KG/MIN, AND FENTANYL AT 0.5MCG/KG/HR, INFUSING WELL, AND L FA 20G PATENT INTACT, INFUSING NS @ 30ML/HR, INFUSING WELL. ON ETT TO VENT, AC/VC FIO2 70%, RR 15, PEEP 10, O2 SAT 95%, NO SOB NOTED, RR EQUAL WITH [place] CHEST RISE, OGT IN PLACE, PLACEMENT CONFIRMED BY AUSCULTATION, RESIDUAL 5ML, TOLERATING FEEDING WELL. DYER CATH IN PLACE, DRAINING TO GRAVITY, INITIAL ASSESSMENT DONE, ALL SAFETY PRECAUTION MET, CALL LIGHT WITHIN REACH, WILL CONTINUE TO MONITOR.
[2019-09-11] MEDS: BLOOD GLUCOSE MONITORING 1 DEV DEV FS SCH ×4 (07:30→20:13)
[2019-09-11] MEDS: INSULIN LISPRO SLIDING SCALE 100 UNITS/ML VIAL SUBQ PRN ×2 (08:30→11:49)
[2019-09-11] MEDS: busPIRone 5 MG TAB PO SCH ×2 (08:51→20:13)
[2019-09-11] MEDS: ASCORBIC ACID 500 MG TAB PO SCH (08:51)
[2019-09-11] MEDS: ZINC SULF 220 MG CAP PO SCH (08:51)
--- NOTE | 2019-09-11 08:51 | NUR ---
RECEIVED ON A PacerProSCAPE R860 VENTILATOR PLUGGED INTO RED OUTLET TOLERATING WELL WITHOUT ADVERSE REACTIONS NOTED TO AN ENDOTRACHEAL TUBE #7.5 SECURED AT 24cm TEETH/GUM LINE WITH AN ANCHOR FAST CUFF PRESSURE CHECKED NOTED AMBU BAG AT BEDSIDE SEDATED GOOD CHEST RISE ENDOTRACHEAL SUCTION FOR MODERATE THIN YELLOW WITH BLOOD TINGE SECRETIONS AIRWAY PATENT
[2019-09-11] MEDS: DEXAMETHASONE 4 MG TAB PO SCH (08:52)
--- NOTE | 2019-09-11 08:52 | NUR ---
DUE MEDICATION ADMINISTERED, PT TOLERATED WELL, NO DISTRESS NOTED, WILL CONTINUE TO MONITOR.
--- NOTE | 2019-09-11 08:52 | NUR ---
SATURATION 94% ON FIO2 OF 70% TITRATED FIO2 TO 65% HALLEY/RN NOTIFIED
--- NOTE | 2019-09-11 11:24 | NUR ---
DESCENDING SATURATION TO 89% ON FIO2 OF 65% INCREASED FIO2 TO 75% PIEROGI MAKER TO NOTIFY RN
--- NOTE | 2019-09-11 13:10 | NUR ---
PT PUT IN PRONE POSITION PER DR ORDER, FEEDING HELD, PT TOLERATED WELL, NO DISTRESS NOTED, WILL CONTINUE TO MONITOR.
--- NOTE | 2019-09-11 13:10 | NUR ---
PATIENT PRONE SUCCESSFULLY WITHOUT COMPLICATIONS NOTED
--- NOTE | 2019-09-11 13:19 | NUR ---
TOLERATING PRONE WELL WITHOUT COMPLICATIONS GOOD CHEST RISE AND AERATION THROUGHOUT BILATERAL LUNG RIVERA AIRWAY PATENT
[2019-09-11] MEDS: NACL 0.9% 1,000 ML IV SCH (13:57)
--- NOTE | 2019-09-11 15:50 | NUR ---
PT RESTING ON PRONE POSITION, NO DISTRESS NOTED, WILL CONTINUE TO MONITOR.
--- NOTE | 2019-09-11 17:09 | NUR ---
REMAINS IN PRONE POSITION GOOD CHEST RISE ENDOTRACHEAL SUCTION FOR LARGE THIN WITH BLOOD TINGE SECRETIONS AIRWAY PATENT
--- NOTE | 2019-09-11 19:15 | NUR ---
ENDORSED PT TO ROLLER MECHANIC NURSE FOR CONTINUOUS OF CARE
--- NOTE | 2019-09-11 19:20 | NUR ---
RECEIVED REPORT FROM MARIZOL RN, PT SEDATED RASS -3 DRY WEIGHT 74KG, PT ON PROPOFOL 30 MCG/KG/HR, FENTANYL 1 MCG/KG/HR, NS 30 ML/HR, LUNG SOUNDS COARSE, OGT FLUSHABLE NO RESIDUALS, PULSES PALPABLE UPPER AND LOWER EXTREMITIES, HEART SOUNDS HEARD, PT IN PRONE POSITION UNTIL 99, NO SIGNS OF DISTRESS SAFETY PROTOCOLS IN PLACE WILL CONTINUE TO MONITOR PT Addendum: 09/11/19 at 2211 by Taz Priest RN ETT TO VENT AC/VC FIO2 75% VT 450 RR 16 PEEP 10, FC IN PLACE DRAINING DARK YELLOW URINE
--- NOTE | 2019-09-11 20:53 | NUR ---
RECEIVED PT ON DOCUMENTED SETTINGS. VENT PLUGGED INTO RED OUTLET. BMV AT BEDSIDE. ETT SECURED. ALARMS SET. PT REMAINS IN PRONE POSITION. NO DISTRESS NOTED. WILL CONT TO MONITOR
[2019-09-12] VITALS (107 sets, daily range): BP systolic 110–196; BP diastolic 49–89
--- NOTE | 2019-09-12 | NUR ---
PT REMAINS PRONE NO SIGNS OF DISTRESS WILL CONTINUE TO MONITOR PT
[2019-09-12] MEDS: PROPOFOL 1000 MG/100 ML PREMIX 100 ML IV PRN ×4 (00:59→20:00)
--- NOTE | 2019-09-12 02:15 | NUR ---
PT REPOSITIONED FROM PRONE, VAP ORAL CARE PROVIDED, NO SIGNS OF DISTRESS WILL CONTINUE TO MONITOR PT
[2019-09-12] MEDS: fentaNYL citrate 1 MG in NACL 0.9% 80 ML IV PRN ×2 (02:30→18:01)
--- NOTE | 2019-09-12 04:15 | NUR ---
CLEANED PT, REPOSITIONED PT IN BED, ORAL CARE PROVIDED NO SIGNS OF DISTRESS WILL CONTINUE TO MONITOR PT
[2019-09-12 04:55] LABS: BASOPHILS # (AUTO) 0.1 K/uL (0.00-0.22); BASOPHILS % (AUTO) 0.5 % (0.0-2.0); HEMATOCRIT 40.9 % (36-52); HEMOGLOBIN 13.5 g/dL (12.0-18.0); LYMPHOCYTES # (AUTO) 0.1 K/uL (2.0-11.5); LYMPHOCYTES % (AUTO) 0.7 % (20.5-51.1); MEAN CORPUSCULAR HEMOGLOBIN 32 pg (27-31); MEAN CORPUSCULAR HGB CONC 33 g/dL (33-37); MEAN CORPUSCULAR VOLUME 96.3 fL (80-94); MONOCYTES # (AUTO) 0.3 K/uL (0.8-1.0); MONOCYTES % (AUTO) 2.2 % (1.7-9.3); NEUTROPHILS % (AUTO) 96.6 % (42.2-75.2); PLATELET COUNT (AUTO) 42 K/uL (140-450); RED BLOOD CELL COUNT(AUTO) 4.24 MIL/uL (4.20-6.10); RED CELL DISTRIBUTION WIDTH 14.7 % (11.6-13.7); WHITE BLOOD COUNT (AUTO) 13.5 K/uL (4.8-10.8)
[2019-09-12 05:06] LABS: ANION GAP 8.9 (8-16); CARBON DIOXIDE 32.6 mmol/L (21-32); CREATININE 1.1 mg/dL (0.6-1.3); POTASSIUM 5.5 mmol/L (3.5-5.1)
--- NOTE | 2019-09-12 05:06 | NUR ---
PT REMAINS ON DOCUMENTED SETTINGS. ETT SECURED. ALARMS SET. PT IS TACHYPNEIC. SX SCANT AMOUNT OF CREAMY SECRETION. WILL CONT TO MONITOR
[2019-09-12 05:14] LABS: ALBUMIN 1.8 g/dL (3.4-5.0); BILIRUBIN,DIRECT 0.9 mg/dL (0.0-0.3); TOTAL BILIRUBIN 1.3 mg/dL (0.0-1.0)
--- NOTE | 2019-09-12 06:21 | NUR ---
CALLED AM RESIDENT [phone] SPOKE [address] DR. CLARENCE VAUGHN REVIEWED MDI THERAPY PER FOREMENTIONED MD BOUCHER FOR MEDICAL PRACTITIONERS TO CHANGE TO HHN THERAPY DUONEB Q6WA AND Q4PRN FOR SOB/WHEEZE
[2019-09-12] MEDS ORDERED: ALBUTEROL SULFATE/IPRATROPIU 3 ML SOL IH PRN (06:30)
[2019-09-12] MEDS: BLOOD GLUCOSE MONITORING 1 DEV DEV FS SCH ×2 (07:01→18:27)
--- NOTE | 2019-09-12 07:20 | NUR ---
ENDORSED PT TO DAY SHIFT RN FOR CONTINUED CARE
--- NOTE | 2019-09-12 07:21 | NUR ---
RECEIVED BEDSIDE REPORT FROM BUSINESS CONTINUITY COORDINATOR NURSE, PT SEDATED RASS -3, DRY WEIGHT 74KG, IV TO L UPPER ARM 18G, RUNNING FENTANYL AT 1MCG/KG/HR, AND PROPOFOL 30MCG/KG/HR, INFUSING WELL IV TO L FA 20G PATENT INTACT, INFUSING NS @ 30ML/HR, INFUSING WELL,IV TO R WRIST 20G PATENT INTACT,SALINE LOCKED, PT ON ETT TO VENT, FIO2 75% RR 16 PEEP 10, SATURATING AT 99%, NO SOB NOTED, OGT IN PLACE CONFIRMED WITH AUSCULTATION, WITH FEEDING, TOLERATING WELL, RESIDUAL 85ML, DYER CATH IN PLACE DRAINING WITH GRAVITY, INITIAL ASSESSMENT DONE, ALL SAFETY PRECAUTION MET, CALL LIGHT WITHIN REACH, WILL CONTINUE TO MONITOR.
[2019-09-12] MEDS: ALBUTEROL SULFATE/IPRATROPIU 3 ML SOL IH SCH ×3 (07:34→19:32)
--- NOTE | 2019-09-12 07:34 | NUR ---
RECEIVED ON A [employer] R860 VENTILATOR WITH COMPRESSOR ON PLUGGED INTO RED OUTLET TOLERATING WELL WITHOUT ADVERSE REACTIONS NOTE TO AN ENDOTRACHEAL TUBE #7.5 SECURED AT 24cm WITH AN ANCHOR FAST CUFF PRESSURE CHECKED NOTED AMBU BAG AT BEDSIDE SEDATED RESTING WELL WITHOUT PULMONARY DISTRESS NOTED GOOD CHEST RISE NO SECRETIONS RETURN UPON SUCTIONING AIRWAY PATENT Addendum: 09/12/19 at 0759 by Alberto Hawk RT SATURATION 100% ON FIO2 OF 75% POST HHN THERAPY TITRATED FIO2 TO 65% HALLEY/YOUSIF NOTIFIED
[2019-09-12] MEDS ORDERED: SODIUM POLYSTYRENE 15 GM/60 ML UDBTL PO SCH (08:30)
[2019-09-12] MEDS ORDERED: FUROSEMIDE 20 MG/2 ML VIAL IVP SCH (08:30)
[2019-09-12] MEDS: ASCORBIC ACID 500 MG TAB PO SCH (09:27)
[2019-09-12] MEDS: DEXAMETHASONE 4 MG TAB PO SCH (09:27)
[2019-09-12] MEDS: busPIRone 5 MG TAB PO SCH ×2 (09:27→21:09)
[2019-09-12] MEDS: ZINC SULF 220 MG CAP PO SCH (09:27)
--- NOTE | 2019-09-12 09:27 | NUR ---
DUE MEDICATION ADMINISTERED, PT TOLERATED WELL, NO DISTRESS NOTED, CALL LIGHT WITHIN REACH, WILL CONTINUE TO MONITOR.
--- NOTE | 2019-09-12 09:57 | NUR ---
NO PULMONARY DISTRESS NOTED EQUAL CHEST RISE AIRWAY PATENT
--- NOTE | 2019-09-12 11:29 | NUR ---
SEDATED GOOD CHEST RISE ENDOTRACHEAL SUCTION FOR LARGE SEMI THICK YELLOW WITH BLOOD TINGE SECRETIONS AIRWAY PATENT SATURATION 98% ON FIO2 OF 65% TITRATED FIO2 TO 50% HALLEY/RN NOTIFIED
--- NOTE | 2019-09-12 12:15 | NUR ---
PLACED PRONE POSITION SUCCESSFULLY WITHOUT COMPLICATIONS
--- NOTE | 2019-09-12 12:15 | NUR ---
PT PLACED ON PRONE POSITION, TOLERATED WELL, NO DISTRESS NOTED, WILL CONTINUE TO MONITOR.
[2019-09-12] MEDS ORDERED: BLOOD GLUCOSE MONITORING 1 DEV DEV FS SCH (12:20)
[2019-09-12] MEDS: INSULIN LISPRO SLIDING SCALE 100 UNITS/ML VIAL SUBQ PRN ×2 (13:11→18:29)
--- NOTE | 2019-09-12 13:42 | NUR ---
SEDATED TOLERATING PRONE POSITION WELL WITHOUT COMPLICATIONS NOTED GOOD CHEST RISE ENDOTRACHEAL SUCTION FOR LARGE THICK YELLOW WITH BLOOD TINGE SECRETIONS AIRWAY PATENT
--- NOTE | 2019-09-12 15:42 | NUR ---
SEDATED TOLERATING PRONE POSITION WELL WITHOUT INCIDENT GOOD CHEST RISE
--- NOTE | 2019-09-12 16:05 | NUR ---
DR SMYTH AT BEDSIDE, CHANGED THE SETTING OF THE VENT TO FIO2 45% AND PEEP 8, PT TOLERATED WELL, SATURATION AT 94%, WILL CONTINUE TO MONITOR.
--- NOTE | 2019-09-12 16:10 | NUR ---
PER HALLEY/RN DR. PABLO SMYTH AT BEDSIDE VENTILATOR CHANGES: DECREASED FIO2 TO 45% DECREASED PEEP 8
[2019-09-12] MEDS: NACL 0.9% 1,000 ML IV SCH (18:36)
--- NOTE | 2019-09-12 19:12 | NUR ---
ENDORSED PT TO [facility] SHIFT NURSE FOR CONTINUOUS OF CARE.
--- NOTE | 2019-09-12 19:15 | NUR ---
RECEIVED REPORT FROM MARIZOL RN, PT SEDATED RASS -3 DRY WEIGHT 74 KG, ON PROPOFOL 30MCG/KG/HR, FENTANYL 1MCG/KG/HR, ETT TO VENT AC/VC FIO2 45% VT 450 RR 16 PEEP 8, DYER CATHETER IN PLACE DRAINING CLEAR YELLOW URINE, PULSES, PALPABLE BILATERAL UPPER AND LOWER EXTREMITIES, PT IS IN PRONE POSITION SKIN IS INTACT, NO SIGNS OF DISTRESS AT THIS TIME WILL CONTINUE TO MONITOR PT
--- NOTE | 2019-09-12 19:33 | NUR ---
RECEIVED REPORT FROM AM SHIFT. PATIENT SEEN AND ASSESSED. PATIENT IS INTUBATED WITH ETT SIZE 7.5 AND SECURED WITH ANCHOR-FAST. AUSCULTATION REVEALS BILATERAL COARSE BREATH SOUNDS. NOTICED ADEQUATE BILATERAL CHEST RISE AND FALL. PATIENT ON VENT SETTINGS AC/VC 16, 450, +8, 45% WITH SPO2 OF 93%. VENT PLUGGED IN RED OUTLET, HOB > 30 DEGREES, AMBU BAG AT BEDSIDE, AND ALARMS SET AND AUDIBLE. PATIENT IS IN NO RESPIRATORY DISTRESS AT THIS TIME. HHN TX GIVEN ORDERED VIA INLINE AND PATIENT TOLERATED WELL WITH NO ADVERSE REACTION. SUCTION SMALL YELLOW THICK SECRETIONS FROM TUBE. AIRWAY IS PATIENT. WILL CONTINUE TO MONITOR PATIENT. PT WAS IN PRONE POSITION. HEAD AND HAND WERE REPOSITIONED.
--- NOTE | 2019-09-12 21:30 | NUR ---
PT MEDS GIVEN BS CHECKED, PT SUCTIONED ORALLY REMOVED SMALL AMOUNT OF CREAM COLORED SECRETIONS NO SIGNS OF DISTRESS WILL CONTINUE TO MONITOR PT
[2019-09-13] VITALS (105 sets, daily range): BP systolic 123–197; BP diastolic 55–88
[2019-09-13] MEDS: BLOOD GLUCOSE MONITORING 1 DEV DEV FS SCH ×5 (00:18→23:55)
--- NOTE | 2019-09-13 01:20 | NUR ---
PT TURNED FROM PRONE POSITION, BED BATH GIVEN, ORAL CARE PROVIDED, TUBE FEEDING RESTARTED 60ML/HR FWF [id number], NO SIGNS OF DISTRESS OBSERVED AT THIS TIME WILL CONTINUE TO MONITOR PT
--- NOTE | 2019-09-13 01:21 | NUR ---
PT WAS SUCCESSFULLY TURNED INTO SUPINE POSITION. PT WAS DESATURATING IN HIGH 70s. TITRATED FiO2 TO 60% WITH SPO2 OF 89%. RNs AT BEDSIDE. WILL CONTINUE TO MONITOR PT.
[2019-09-13] MEDS: PROPOFOL 1000 MG/100 ML PREMIX 100 ML IV PRN ×3 (01:30→20:02)
[2019-09-13] MEDS: INSULIN LISPRO SLIDING SCALE 100 UNITS/ML VIAL SUBQ PRN ×3 (05:50→17:56)
--- NOTE | 2019-09-13 06:00 | NUR ---
BS CHECKED COVERAGE PROVIDED PT REPOSITIONED IN BED, ORAL CARE PROVIDED NO SIGNS OF DISTRESS NOTED WILL CONTINUE TO MONITOR PT
[2019-09-13] MEDS: fentaNYL citrate 1 MG in NACL 0.9% 80 ML IV PRN ×2 (06:17→22:15)
[2019-09-13 06:29] LABS: BASOPHILS # (AUTO) 0.1 K/uL (0.00-0.22); BASOPHILS % (AUTO) 0.8 % (0.0-2.0); EOSINOPHILS % (AUTO) 0.3 % (0.0-4.0); HEMATOCRIT 37.2 % (36-52); HEMOGLOBIN 12.3 g/dL (12.0-18.0); LYMPHOCYTES # (AUTO) 0.1 K/uL (2.0-11.5); LYMPHOCYTES % (AUTO) 0.9 % (20.5-51.1); MEAN CORPUSCULAR HEMOGLOBIN 32 pg (27-31); MEAN CORPUSCULAR HGB CONC 33 g/dL (33-37); MEAN CORPUSCULAR VOLUME 96.7 fL (80-94); MONOCYTES # (AUTO) 0.3 K/uL (0.8-1.0); MONOCYTES % (AUTO) 2.9 % (1.7-9.3); NEUTROPHILS # (AUTO) 10.6 K/uL (1.8-7.7); NEUTROPHILS % (AUTO) 95.1 % (42.2-75.2); PLATELET COUNT (AUTO) 38 K/uL (140-450); RED BLOOD CELL COUNT(AUTO) 3.85 MIL/uL (4.20-6.10); RED CELL DISTRIBUTION WIDTH 14.5 % (11.6-13.7); WHITE BLOOD COUNT (AUTO) 11.1 K/uL (4.8-10.8)
[2019-09-13 07:08] LABS: ANION GAP 5.1 (8-16); CARBON DIOXIDE 37.3 mmol/L (21-32); CREATININE 0.8 mg/dL (0.6-1.3); POTASSIUM 5.4 mmol/L (3.5-5.1)
--- NOTE | 2019-09-13 07:26 | NUR ---
REPORT GIVEN TO DAYSHIFT RN FOR CONTINUED CARE
--- NOTE | 2019-09-13 07:27 | NUR ---
RECEIVED BEDSIDE REPORT FROM SENIOR ASSISTANT MANAGER NURSE, PT SEDATED TO RASS -3. DRY WEIGHT 74KG. IV TO JULIET 18G PATENT INTACT, INFUSING PROPOFOL AT 35MCG/KG/MIN, AND FENTANYL @1MCG/KG/HR, INFUSING WELL, IV TO L FA 20G, PATENT INTACT, INFUSING NS@ 30ML/HR, INFUSING WELL, IV TO R WRIST 20G, SL PATENT, INTACT, PT ON ETT TO VENT, FIO2 60% RR 16 PEEP 8, SATURATION 82%, NO SOB NOTED, RT AT BEDSIDE, OGT IN PLACE, WITH FEEDING, PLACEMENT CONFIRMED WITH AUSCULTATION, RESIDUAL 35ML, PT TOLERATING FEEDING WELL, DYER CATH IN PLACE, DRAINING TO GRAVITY, INITIAL ASSESSMENT DONE, WILL CONTINUE TO MONITOR.
[2019-09-13] MEDS: ALBUTEROL SULFATE/IPRATROPIU 3 ML SOL IH SCH ×3 (07:54→19:00)
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
[2019-09-13] MEDS: ASCORBIC ACID 500 MG TAB PO SCH (09:11)
[2019-09-13] MEDS: busPIRone 5 MG TAB PO SCH ×2 (09:11→20:10)
[2019-09-13] MEDS: DEXAMETHASONE 4 MG TAB PO SCH (09:12)
[2019-09-13] MEDS: ZINC SULF 220 MG CAP PO SCH (09:12)
--- NOTE | 2019-09-13 09:12 | NUR ---
DUE MEDICATION ADMINISTERED, PT TOLERATED WELL, NO DISTRESS NOTED, WILL CONTINUE TO MONITOR.
--- NOTE | 2019-09-13 09:35 | NUR ---
PER HALLEY/RN SATURATION DECLINING TO 84% PRE/POST PATIENT POSTIONG FIO2 INCREASED TO 70% BY RN
--- NOTE | 2019-09-13 09:40 | NUR ---
NO APPARENT RESPIRATORY DISTRESS NOTED GOOD CHEST RISE AIRWAY PATENT
--- NOTE | 2019-09-13 11:38 | NUR ---
RESTING WELL NO DISTRESS NOTED EQUAL CHEST RISE AIRWAY PATENT
[2019-09-13] MEDS: LACTULOSE 20 GM/30 ML UDC PO SCH ×2 (12:46→17:32)
--- NOTE | 2019-09-13 12:52 | NUR ---
CHECKED PT BLOOD SUGAR 228, 4 UNITS HUMALOG PER PROTOCOL ADMINISTERED, PT TOLERATED WELL, NO DISTRESS NOTED, WILL CONTINUE TO MONITOR.
[2019-09-13] MEDS: NACL 0.9% 1,000 ML IV SCH (13:23)
--- NOTE | 2019-09-13 13:56 | NUR ---
RESTING COMFORTABLY NO INDICATION OF RESPIRATORY DISTRESS NOTED AT THIS TIME GOOD CHEST RISE ENDOTRACHEAL SUCTION FOR MODERATE THIN YELLOW SECRETIONS AIRWAY PATENT
--- NOTE | 2019-09-13 15:00 | NUR ---
09/13/19 RD FOLLOW UP COMPLETED PLEASE REFER TO NUTRITION ASSESSMENT UNDER CARE ACTIVITY FOR ESTIMATED NUTRITIONAL NEEDS. 1. CONTINUE VITAL AF 1.2 @ 60 ML/HR GOAL. START AT 10 ML INCREASE BY 10 ML Q4H. -THIS WILL PROVIDE 1728 YASMIN AND 108 GM OF PROTEIN WHICH MEETS 100% OF ESTIMATED CALORIE AND PROTEIN NEEDS 2. CONTINUE FREE WATER FLUSH OF 95 ML Q4H PER MD 3. CONTINUE VITAMIN C AND ZINC 4. RD TO FOLLOW-UP 2-3 DAYS, HIGH RISK SHARMIN ELIZABETH RD
--- NOTE | 2019-09-13 15:45 | NUR ---
POSITIONED PT TO PRONE POSITION, TOLERATED WELL, NO DISTRESS NOTED, WILL CONTINUE TO MONITOR.
--- NOTE | 2019-09-13 17:20 | NUR ---
RESTING WELL PRONE POSITION TOLERATING WELL WITHOUT ADVERSE REACTIONS NOTED GOOD CHEST RISE AIRWAY PATENT
[2019-09-13] MEDS: hydrALAZINE 20 MG/ML VIAL IVP PRN (18:18)
--- NOTE | 2019-09-13 19:24 | NUR ---
ENDORSED PT TO HEEL TOP LIFT SPLITTER NURSE, FOR CONTINUOUS OF CARE
--- NOTE | 2019-09-13 19:25 | NUR ---
RECEIVED PT FROM DAY SHIFT RN PT SEDATED LIBERTY -3 DRY WEIGHT 74KG, PT ON PROPOFOL 40 MCG/KG/HR, FENTANYL 1 MCG/KG/HR, ETT TO VENT AC/VC FIO2 70% VT 450 RR 16 PEEP 8, OGT IN PLACE NO RESIDUALS FLUSHABLE, LUNG SOUNDS COARSE AND DIMINISHED, PT IS IN PRONE POSITION, PULSES PALPABLE BILATERAL UPPER AND LOWER EXTREMITIES, SKIN IS DRY AND INTACT NO SIGNS OF DISTRESS AT THIS TIME WILL CONTINUE TO MONITOR PT
--- NOTE | 2019-09-13 20:30 | NUR ---
PT MEDICATION GIVEN PT HAD SMALL BM LIGHT BROWN LIQUID CONSISTENCY, PT CLEANED NO SIGNS OF DISTRESS OBSERVED WILL CONTINUE TO MONITOR PT
--- NOTE | 2019-09-13 22:58 | NUR ---
PT HAD SMALL LIQUID BROWN BM PT CLEANED, PT SKIN FEELS HOT TEMP CHECKED FOR TEMP OF 99.8 F AXILLARY, COOLING MEASURES IN PLACE WILL CONTINUE TO MONITOR PT
[2019-09-14] VITALS (100 sets, daily range): BP systolic 102–191; BP diastolic 59–83
[2019-09-14] MEDS: PROPOFOL 1000 MG/100 ML PREMIX 100 ML IV PRN ×5 (02:30→21:47)
--- NOTE | 2019-09-14 02:30 | NUR ---
PT HAD SMALL BROWN SOLID BM PT CLEANED NO SIGNS OF DISTRESS WILL CONTINUE TO MONITOR PT
--- NOTE | 2019-09-14 03:50 | NUR ---
PT REPOSITIONED IN BED LAYING RIGHT LATERAL, BED BATH GIVEN, DYER CARE, ORAL CARE PROVIDED, NO SIGNS OF DISTRESS NOTED AT THIS TIME WILL CONTINUE TO MONITOR PT
[2019-09-14] MEDS: BLOOD GLUCOSE MONITORING 1 DEV DEV FS SCH ×3 (05:57→18:24)
[2019-09-14 06:39] LABS: ALBUMIN 1.6 g/dL (3.4-5.0); ANION GAP 2.5 (8-16); CREATININE 0.8 mg/dL (0.6-1.3); POTASSIUM 5.2 mmol/L (3.5-5.1); TOTAL BILIRUBIN 0.8 mg/dL (0.0-1.0)
[2019-09-14 06:47] LABS: BASOPHILS # (AUTO) 0.3 K/uL (0.00-0.22); BASOPHILS % (AUTO) 2.7 % (0.0-2.0); EOSINOPHILS % (AUTO) 0.4 % (0.0-4.0); HEMATOCRIT 39.2 % (36-52); LYMPHOCYTES # (AUTO) 0.2 K/uL (2.0-11.5); LYMPHOCYTES % (AUTO) 2.2 % (20.5-51.1); MEAN CORPUSCULAR HEMOGLOBIN 32 pg (27-31); MEAN CORPUSCULAR HGB CONC 33 g/dL (33-37); MEAN CORPUSCULAR VOLUME 97.4 fL (80-94); MONOCYTES # (AUTO) 0.3 K/uL (0.8-1.0); MONOCYTES % (AUTO) 3.5 % (1.7-9.3); NEUTROPHILS # (AUTO) 8.8 K/uL (1.8-7.7); NEUTROPHILS % (AUTO) 91.2 % (42.2-75.2); PLATELET COUNT (AUTO) 50 K/uL (140-450); RED BLOOD CELL COUNT(AUTO) 4.02 MIL/uL (4.20-6.10); RED CELL DISTRIBUTION WIDTH 14.7 % (11.6-13.7); WHITE BLOOD COUNT (AUTO) 9.7 K/uL (4.8-10.8)
[2019-09-14 06:54] LABS: CARBON DIOXIDE 40.7 mmol/L (21-32)
--- NOTE | 2019-09-14 07:15 | NUR ---
RECEIVED BEDSIDE REPORT FROM PRESSER AUTOMATIC NURSE GAY FOR CONTINUITY OF CARE. PT SEDATED TO RASS -3 AND DRY WEIGHT 74KG. FLACC 0. RESPIPRATION EVEN AND UNLABORED ON ETT TO VENT; SETTING: AV/VC, FIO2 AT 70%, TIDAL VOLUME 450, RR 16 AND PEEP 8. NO SIGNS OF ACUTE DISTRESS NOTED. IV ON JULIET 18G PATENT INTACT, INFUSING PROPOFOL AT 40 MCG/KG/MIN (17.76 ML/HR), AND FENTANYL @1 MCG/KG/HR (7.4 ML/HR), R WRIST 20G SALINE LOCK, AND LFA 20G, PATENT INTACT, INFUSING NS@ 30 ML/HR, INFUSING WELL. OGT IN PLACE, RUNNING VITAL 1.2 AF AT 60 ML/HT AND H20 FLUSH 95 ML/HR Q4H. SKIN CLEAN, DRY AND WARM TO TOUCH. BILATERAL SOFT WRIST RESTRAINTS ON, NO SIGNS OF INJURY AND CAPILLARY REFILLED < [address] DYER CATH IN PLACE, DRAINING TO GRAVITY WITH YELLOW URINE. SAFETY MEASURES IN PLACE. BED IN LOW POSITION, HOB ELEVATED TO 30 DEGREE, AND BED LOCKED. [employer] SYSTEMS ADMINISTRATOR ATTACHED.
[2019-09-14] MEDS: ALBUTEROL SULFATE/IPRATROPIU 3 ML SOL IH SCH ×3 (08:04→21:46)
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
[2019-09-14] MEDS: ZINC SULF 220 MG CAP PO SCH (08:29)
[2019-09-14] MEDS: LACTULOSE 20 GM/30 ML UDC PO SCH ×3 (08:29→17:02)
[2019-09-14] MEDS: busPIRone 5 MG TAB PO SCH (08:29)
[2019-09-14] MEDS: ASCORBIC ACID 500 MG TAB PO SCH (08:29)
[2019-09-14] MEDS: DEXAMETHASONE 4 MG TAB PO SCH (08:30)
--- NOTE | 2019-09-14 09:02 | NUR ---
CHECKED OG-TUBE RESIDUAL AND RECEIVED 15 ML. ADMINISTERED SCHEDULED MEDS, FLUSH BEFORE AND AFTER MEDS ADMINISTER VIA OG-TUBE. PROVIDED HYGIENE CARE, ORAL CARE AND DYER CARE. PT TOLERATED WELL, FLACC 0. SPO2 AT 894% ON ETT TO VENT FIO2 70%. RELEASED SOFT WRIST RESTRAINTS AND PERFORMED RANGE OF MOTION FOR 15 MINS, NO SIGN OF INJURY AND CAPILLARY REFILLED < 3 SECONDS. SKIN GRADER ATTACHED. OG-FEEDING CONTINUE AT 60 ML/HR.
--- NOTE | 2019-09-14 10:05 | NUR ---
INCREASED NS IVF TO 60 ML/HR PER MD ORDER.
--- NOTE | 2019-09-14 10:10 | NUR ---
WITH ASSIST FROM ANOTHER, REPOSITIONED PT TO HIS RIGHT SIDE AND OFF LOADED PRESSURE WITH PILLOWS.
[2019-09-14] MEDS: fentaNYL citrate 1 MG in NACL 0.9% 80 ML IV PRN (11:08)
--- NOTE | 2019-09-14 11:09 | NUR ---
STARTED A NEW BAG OF FENTANYL AND CONTINUE INFUSING AT 1 MCG/KG/HR (7.4 ML/HR).
--- NOTE | 2019-09-14 11:45 | NUR ---
GOOD CHEST RISE NO DISTRESS NOTED
[2019-09-14] MEDS: INSULIN LISPRO SLIDING SCALE 100 UNITS/ML VIAL SUBQ PRN ×2 (12:21→18:25)
--- NOTE | 2019-09-14 12:21 | NUR ---
STARTED A NEW BOTTLE OF PROPOFOL AND CONTINUE INFUSING AT 17.76 ML/HR = 40 MCG/KG/MIN. CHECKED BLOOD GLUCOSE AND RECEIVED 190, ADMINISTERED 2 UNITS OF HUMALOG. WITH ASSIST FROM ANOTHER RN, REPOSITIONED PATIENT AND UPLOADED PRESSURES FROM LEGS, ARMS, AND BACK WITH PILLOWS. PT TOLERATED WELL. FLACC 0.
--- NOTE | 2019-09-14 13:10 | NUR ---
CHECKED OG TUBE RESIDUAL AND RECEIVED < 15 ML, ADMINISTERED SCHEDULED MED VIA OG TUBE, FLUSH BEFORE AND AFTER MED ADMINISTER. FLACC 0. SPO2 AT 94%. PROVIDED ORAL HYGIENE AND SUCTIONED PT TWICE, RECEIVED MINIMAL PINK AND WHITE MUCUS. REPOSITIONED PATIENT AND UPLOADED PRESSURES FROM LEGS WITH PILLOWS. ROUNDHOUSE WORKER IN PLACE. HOB ELEVATED TO 30 DEGREE AND BED LOCKED.
[2019-09-14] MEDS: NACL 0.9% 1,000 ML IV SCH (13:24)
--- NOTE | 2019-09-14 13:41 | NUR ---
SEDATED RESTING COMFORTABLY GOOD CHEST RISE SATURATION 94% ON FIO2 OF 70% TITRATED FIO2 TO 60% MIMA/RN
--- NOTE | 2019-09-14 14:32 | NUR ---
PATIENT PRESENTING WITH DESCENDING SATURATION UNABLE TO TOLERATE FIO2 TITRATION CHANGED FIO2 BACK TO 70% EMERGENCY ROOM SPECIALIST TO JOJO Addendum: 09/14/19 at 1501 by Alberto RIVERA DESCENDING SATURATION TO 86%
--- NOTE | 2019-09-14 15:00 | NUR ---
VENT HIGH PEAK WENT OFF, ATTENDED TO PATIENT AND ASSESSED PATIENT, SUCTIONED PATIENT TWICE AND RECEIVED MINIMAL MUCUS, AND REPOSITIONED PATIENT. BRAKE LINER IN PLACE. NO SIGNS OF ACUTE DISTRESS NOTED.
--- NOTE | 2019-09-14 15:40 | NUR ---
PATIENT HAS ONE MODERATE YELLOW SOFT BM, PROVIDED HYGIENE CARE AND CHANGED LINENS.
--- NOTE | 2019-09-14 16:05 | NUR ---
PATIENT SUCCESSFULLY PLACED IN PRONE POSITION WITHOUT COMPLICATIONS POST PRONE PATIENT PRESENTING WITH DESCENDING SATURATION T0 78% INCREASED FIO2 TO 90% LOCAL CITY DRIVER TO MONITOR AND TITRATE
--- NOTE | 2019-09-14 16:05 | NUR ---
WITH ASSIST FROM VIGOUREUX PRINTER AND RT, POSITIONED PATIENT INTO PRONE AND OFF LOADED PRESSURE WITH FOAM PROTECTORS ON KNEES AND PILLOWS. REAPPLIED SOFT WRIST RESTRAINTS, INTACT, NO SIGNS OF INJURY AND CAPILLARY REFILLED < [address]AF[address]Y MEASURES IN PLACE. SIDE RAILS ARE UP AND BED ALARM ACTIVATED. MEDICAL TERMINOLOGIST IN PLACE.
--- NOTE | 2019-09-14 16:25 | NUR ---
STARTED A NEW BOTTLE OF PROPOFOL AND CONTINUE INFUSING AT 40 MCG/KG/MIN = 17.76 ML/HR.
[2019-09-14] MEDS: ACETAMINOPHEN 325 MG TAB PO PRN (17:14)
--- NOTE | 2019-09-14 17:15 | NUR ---
PT IS ST 139 ON MONITOR. ATTENDED AND ASSESSED PATIENT, SKIN HOT TO TOUCH, CHECKED TEMP RECTALLY AND RECEIVED 102.3. MEDICATED WITH TYLENOL VIA OG TUBE. ADMINISTERED SCHEDULED MED PER MD ORDER, FLUSH BEFORE AND AFTER. APPLIED COOLING MEASURES, ICE PACK ON FOREHEAD AND SHOULDERS, TOOK OFF BLANKET. WILL REASSESS TEMP SHORTLY. HOLD OG TUBE FEEDING AT THIS TIME DUE TO PRONING POSITION.
--- NOTE | 2019-09-14 17:33 | NUR ---
SEDATED TOLERATING PRONE POSITION WELL WITHOUT ANY COMPLICATIONS AT THIS TIME GOOD CHEST RISE
--- NOTE | 2019-09-14 18:25 | NUR ---
REASSESSED TEMP AND RECEIVED 99.5 RECTAL. CHECKED BLOOD GLUCOSE AND RECEIVED 174, COVERED WITH 2 UNITS OF HUMALOG.
--- NOTE | 2019-09-14 18:53 | NUR ---
COLLECTED URINE AND DELIVERED TO LAB.
--- NOTE | 2019-09-14 19:00 | NUR ---
ASSUMED CARE OF PT.INITIAL ASSESSMENT COMPLETED.PT SEDATED ON PROPOFOL DRIP AT 40MCG/KG/MIN(17.75ML/HR).DRY WEIGHT 74 KG.ETT TO VENT FIO2 90% TV 450 RATE 16 PEEP8.SECRETIONS SUCTIONED, PINK TINGED SECRETIONS NOTED.WITH PERIPHERAL IV TO JULIET G18 INFUSING PROPOFOL AND RT WRIST G20 INFUSING FENTANYL DRIP AT 1MCG/KG/HR (7.4ML/HR) AND ORDERED IVF.WITH OGT IN PLACE.FEEDING ON HOLD AT THIS TIME; PT ON PRONE POSITION.WITH DYER CATHETER TO BSD DRAINING SMALL AMT OF YELLOW URINE.W/BRUISING NOTED TO RT SIDE OF NOSE AND OPEN AREA TO RT BUTTOCKS.PHOTOS TAKEN.RASS -3
--- NOTE | 2019-09-14 19:12 | NUR ---
ENDORSED PT AT WINDOW-SIDE TO JOB SPECIFICATION WRITER NURSE FOR CONTINUITY OF CARE. PT IS IN STABLE CONDITION. POWER CRANE OPERATOR IN PLACE. PATIENT IS LYING ON PRONE POSITION. SAFETY MEASURES IN PLACE.
--- NOTE | 2019-09-14 20:00 | NUR ---
TEMP CHECKED 101.2; COOLING BLANKET APPLIED.WILL CONTINUE TO MONITOR FOR FEVER
[2019-09-14] MEDS ORDERED: METOPROLOL 5 MG/5 ML VIAL IV ONE (20:30)
--- NOTE | 2019-09-14 21:00 | NUR ---
PHONE CALL TO DR ROB; PT HAS TEMP 101.2; COOLING BLANKET IN PLACE; WILL CONTINUE TO MONITOR PT; ASPER PHYSICIAN , TO HOLD METOPROLOL AT THIS TIME
--- NOTE | 2019-09-14 21:45 | NUR ---
RECEIVED INTUBATED PT WITH A 7.5 ETT SECURE @24 TEETH/GUM ON VENT. SETTINGS AC 16, VT 450, PEEP 8 AND FIO2 90%. PT IS IN THE PRONE POSITION SPO2 90%. PT IS SEDATED NOT IN ANY DISTRESS AT THIS TIME. VENT IS PLUGGED INTO A RED OUTLET WITH ALARMS ON AND FUNCTIONING. PT SUCTIONED OBTAINED BLOODY SECRETIONS, AIRWAY IS PATENT AND SECURE.WILL CONTINUE TO MONITOR.
[2019-09-15] VITALS (103 sets, daily range): BP systolic 109–180; BP diastolic 53–95
--- NOTE | 2019-09-15 | NUR ---
ORAL CARE USING VAP KIT DONE.SECRETIONS SUCTIONED PINK TINGED.SMALL AMT.PT STILL SEDATED ON PROPOFOL DRIP AND FENTANYL DRIP.FLACC 0 RASS-3
--- NOTE | 2019-09-15 02:19 | NUR ---
PTS CONDITION REMAINS UNCHANGED.STILL ON PRONE POSITION.STILL ON PROPOFOL AND FENTANYL DRIPS.TEMP 98.0
[2019-09-15] MEDS: PROPOFOL 1000 MG/100 ML PREMIX 100 ML IV PRN ×4 (03:11→20:10)
[2019-09-15] MEDS: fentaNYL citrate 1 MG in NACL 0.9% 80 ML IV PRN ×2 (03:12→18:22)
[2019-09-15] MEDS: NACL 0.9% 1,000 ML IV SCH ×2 (03:13→18:23)
--- NOTE | 2019-09-15 04:00 | NUR ---
PT RETURNED TO SUPINE POSITION WITHOUT INCIDENT. ETT REMAINS SECURE. PT NOT IN ANY DISTRESS.
--- NOTE | 2019-09-15 04:00 | NUR ---
pt repositioned from prone to rt lateral with rt carmella.morning care done.oral care rendered.flacc 0
[2019-09-15] MEDS: BLOOD GLUCOSE MONITORING 1 DEV DEV FS SCH ×4 (05:55→18:44)
--- NOTE | 2019-09-15 05:58 | NUR ---
PT SEDATED NOT IN ANY DISTRESS. PT REMAINS ON DOCUMENTED VENT SETTINGS. VENT ALARMS ON AND FUNCTIONING. ETT IS SECURE.
[2019-09-15 06:29] LABS: BASOPHILS % (AUTO) 0.5 % (0.0-2.0); EOSINOPHILS % (AUTO) 0.2 % (0.0-4.0); HEMATOCRIT 43.6 % (36-52); HEMOGLOBIN 14.1 g/dL (12.0-18.0); LYMPHOCYTES # (AUTO) 0.1 K/uL (2.0-11.5); LYMPHOCYTES % (AUTO) 1.3 % (20.5-51.1); MEAN CORPUSCULAR HEMOGLOBIN 32 pg (27-31); MEAN CORPUSCULAR HGB CONC 32 g/dL (33-37); MEAN CORPUSCULAR VOLUME 99.4 fL (80-94); MONOCYTES # (AUTO) 0.1 K/uL (0.8-1.0); MONOCYTES % (AUTO) 1.5 % (1.7-9.3); NEUTROPHILS # (AUTO) 7.2 K/uL (1.8-7.7); NEUTROPHILS % (AUTO) 96.5 % (42.2-75.2); PLATELET COUNT (AUTO) 30 K/uL (140-450); RED BLOOD CELL COUNT(AUTO) 4.38 MIL/uL (4.20-6.10); RED CELL DISTRIBUTION WIDTH 15.1 % (11.6-13.7); WHITE BLOOD COUNT (AUTO) 7.5 K/uL (4.8-10.8)
[2019-09-15] MEDS: ALBUTEROL SULFATE/IPRATROPIU 3 ML SOL IH SCH ×3 (07:00→20:01)
--- NOTE | 2019-09-15 07:10 | NUR ---
RECEIVED BEDSIDE REPORT FROM SECURITY SALES CONSULTANT NURSE EMANUEL FOR CONTINUITY OF CARE. PT IS LYING IN RIGHT LATERAL POSITION WITH COOLING BLANKET ON, AFEBRILE, TEMP 98.4. PT SEDATED TO RASS -3 AND DRY WEIGHT 74KG. FLACC 0. RESPIRATION EVEN AND UNLABORED ON ETT TO VENT; SETTING: AV/VC, FIO2 AT 90%, TIDAL VOLUME 450, RR 16 AND PEEP 8. NO SIGNS OF ACUTE DISTRESS NOTED. IV ON JULIET 18G PATENT INTACT, INFUSING PROPOFOL AT 40 MCG/KG/MIN (17.76 ML/HR), AND FENTANYL @1 MCG/KG/HR (7.4 ML/HR), R WRIST 20G SALINE LOCK, AND LFA 20G, PATENT INTACT, INFUSING NS @ 60 ML/HR, INFUSING WELL. OGT IN PLACE, RUNNING VITAL 1.2 AF AT 60 ML/HT AND H20 FLUSH 95 ML/HR Q4H. SKIN CLEAN, DRY AND WARM TO TOUCH. BILATERAL SOFT WRIST RESTRAINTS ON, NO SIGNS OF INJURY AND CAPILLARY REFILLED < [address] DYER CATH IN PLACE, DRAINING TO GRAVITY WITH YELLOW URINE. SAFETY MEASURES IN PLACE. BED IN LOW POSITION, HOB ELEVATED TO 30 DEGREE, AND BED LOCKED. INDUSTRIAL MAINTENANCE INSTRUCTOR ATTACHED.
--- NOTE | 2019-09-15 08:06 | NUR ---
STARTED A NEW BOTTLE OF PROPOFOL.
[2019-09-15] MEDS: PANTOPRAZOLE 40 MG INJ VIAL IVP SCH (08:28)
[2019-09-15] MEDS: ZINC SULF 220 MG CAP PO SCH (08:28)
[2019-09-15] MEDS: LACTULOSE 20 GM/30 ML UDC PO SCH ×3 (08:28→18:19)
[2019-09-15] MEDS: ASCORBIC ACID 500 MG TAB PO SCH (08:29)
[2019-09-15] MEDS: DEXAMETHASONE 4 MG TAB PO SCH (08:29)
--- NOTE | 2019-09-15 08:53 | NUR ---
CHECKED OG-TUBE RESIDUAL AND RECEIVED < 10 ML. ADMINISTERED SCHEDULED MEDS, FLUSH BEFORE AND AFTER MEDS ADMINISTER VIA OG-TUBE. PROVIDED HYGIENE CARE, ORAL CARE AND DYER CARE. PT TOLERATED WELL, FLACC 0. SPO2 AT 93% ON ETT TO VENT FIO2 90%. RELEASED SOFT WRIST RESTRAINTS AND PERFORMED RANGE OF MOTION FOR 15 MINS, NO SIGN OF INJURY AND CAPILLARY REFILLED < 3 SECONDS. PROPOFOL INFUSING AT 17.76 ML/HR (40 MCG/KG/MIN) ON JULIET 18G, NS AT 60 ML/HR AND FENTANYL INFUSING ON R WRIST 20G. SODA MAKER ATTACHED. OG-FEEDING CONTINUE AT 60 ML/HR. NO SIGNS OF ACUTE DISTRESS NOTED. SAFETY MEASURES IN PLACE. BED IN LOW POSITION AND HOB ELEVATED, AND BED LOCKED.
[2019-09-15 09:23] LABS: ALBUMIN 1.6 g/dL (3.4-5.0); CREATININE 1.2 mg/dL (0.6-1.3); TOTAL BILIRUBIN 1.9 mg/dL (0.0-1.0)
[2019-09-15 09:28] LABS: POTASSIUM 6.4 mmol/L (3.5-5.1)
--- NOTE | 2019-09-15 09:28 | NUR ---
RECEIVED CRITICAL LABS FOR CO2 40.5, K 6.4, BUN [address] RENE MADE AWARE AND NO ORDER RECEIVE AT THIS TIME.
[2019-09-15 09:29] LABS: ANION GAP 4.9 (8-16); CARBON DIOXIDE 40.5 mmol/L (21-32)
--- NOTE | 2019-09-15 10:36 | NUR ---
STAFF REPORT PT. CHANGE OF MARCY SCALE AND SKIN CONDITION. CLARIFICATION RIGHT BUTTOCK NOT A PRESSURE ULCER. OPEN EROSION 1X0.5CM WITH SUPERFICIAL DEPTH FROM MOISTURE, NOSE BRIDGE BRUISE FROM TUBING POSITION SKIN INTACT. PT IS COVID 19 POSITIVE AND WITH MULTIPLE COMORBIDITY PLACE PT. AT HIGH RISKS FOR SKIN FAILURE. RECOMMENDATIONS; -CLEANSE SACRAL COCCYX, RIGHT BUTTOCKS WITH WOUND CLEANSING SOLUTION AND APPLY Z GUARD COVER WITH FOAM DRESSING QD AND PRN IF SOILING -APPLY FORM DRESSING TO ELBOWS, HEELS, NOSE BRIDGE, HIPS AND MONITOR DRESSING Q SHIFT AND CHANGE PRN IF SOILING -OFFLOAD BILATERAL HEELS BY PLACING PILLOWS UNDER CALVES UNLESS OTHERWISE CONTRAINDICATED -PRESSURE REDISTRIBUTION SURFACE THERAPY -TURN AND REPOSITION Q2H, OFFLOAD SACRALCOCCYX AND BUTTOCKS -CONTINUE TO FOLLOW RD RECOMMENDATIONS ALL ABOVE RECOMMENDATIONS DISCUSSED WITH PRIMARY RN. PLEASE CONTACT WOUND CARE NURSE FOR ANY QUESTION AND CHANGE OF WOUND CONDITION.
[2019-09-15] MEDS ORDERED: NACL 0.9% 500 ML IV SCH (10:55)
[2019-09-15] MEDS ORDERED: ALBUTEROL 0.083% 2.5 MG/3 ML NEBU INH SCH (11:15)
[2019-09-15] MEDS ORDERED: SODIUM POLYSTYRENE 15 GM/60 ML UDBTL PO SCH ×2 (11:30→18:00)
[2019-09-15] MEDS ORDERED: DEXTROSE 50% 50 ML SYR IVP SCH (11:30)
[2019-09-15] MEDS ORDERED: INSULIN REGULAR, HUMAN 100 UNIT/ML VIAL IVP SCH (11:30)
--- NOTE | 2019-09-15 11:39 | NUR ---
ADMINISTERED SCHEDULED MEDS AND NS 500 ML BOLUS PER MD ORDER.
[2019-09-15] MEDS ORDERED: CALCIUM GLUCONATE 10% 1,000 MG in NACL 0.9% 50 ML IV SCH (12:00)
--- NOTE | 2019-09-15 12:02 | NUR ---
CHECKED BLOOD GLUCOSE AND RECEIVED 354, WILL ADMINISTER COVERAGE SHORTLY.
--- NOTE | 2019-09-15 13:06 | NUR ---
ADMINISTERED SCHEDULED MEDS PER MD ORDER VIA OG-TUBE AND CALCIUM GLUCONATE IVP. WILL CHECK BLOOD GLUCOSE AGAIN PRIOR TO ADMINISTER COVERAGE.
[2019-09-15] MEDS: INSULIN LISPRO SLIDING SCALE 100 UNITS/ML VIAL SUBQ PRN ×2 (13:22→18:44)
--- NOTE | 2019-09-15 13:22 | NUR ---
CHECKED BLOOD GLUCOSE AND RECEIVED 195, ADMINISTERED 2 UNITS OF HUMALOG.
--- NOTE | 2019-09-15 14:04 | NUR ---
STARTED A NEW BOTTLE OF PROPOFOL AND PATIENT HAS ONE MODERATE SOFT BM, PROVIDED HYGIENE CARE.
[2019-09-15] MEDS: ACETAMINOPHEN 325 MG TAB PO PRN (15:32)
--- NOTE | 2019-09-15 15:32 | NUR ---
PATIENT HAS A TEMP 100.4 RECTAL, ADMINISTERED TYLENOL. APPLIED COOLING BLANKET. WILL REASSESS TEMP.
--- NOTE | 2019-09-15 16:55 | NUR ---
WITH ASSIST FROM ANOTHER RN AND RT, TURNED PATIENT INTO PRONE POSITION. RELEASED RESTRAINTS AND PERFORMED 15 MINS RANGE OF MOTIONS AND REAPPLIED RESTRAINTS. HOLD FEEDING AT THIS TIME. CONTINUED WITH COOLING BLANKET. MARINE ELECTRONICS TECHNICIAN ATTACHED.
[2019-09-15 17:15] LABS: CREATININE 0.9 mg/dL (0.6-1.3); POTASSIUM 5.7 mmol/L (3.5-5.1)
[2019-09-15 17:17] LABS: CARBON DIOXIDE 41.7 mmol/L (21-32)
--- NOTE | 2019-09-15 17:21 | NUR ---
RECEIVED CRITICAL LAB FOR CO2 41.7, DR RENE MADE AWARE AND HE WILL INPUT ORDER.
--- NOTE | 2019-09-15 17:31 | NUR ---
NOTIFIED DR RENE THAT PT HAS TEMP OF 100.2, TYLENOL GIVEN AT 1532 FOR TEMP 100.4 WITH COOLING BLANKET ON. PER DR RENE, HE WILL PUT IN ONCE TIME DOSE OF TYLENOL SHORTLY.
[2019-09-15] MEDS ORDERED: ACETAMINOPHEN 325 MG SUPP RC SCH (17:55)
[2019-09-15] MEDS ORDERED: KETOROLAC 30 MG/ML VIAL IVP SCH (18:30)
--- NOTE | 2019-09-15 18:45 | NUR ---
ADMINISTERED MEDS PER MD ORDER, CHECKED BLOOD GLUCOSE AND RECEIVED 177, COVERED WITH 2 UNITS OF HUMALOG.
--- NOTE | 2019-09-15 19:30 | NUR ---
ENDORSED PATIENT TO ANALYST MICROBIOLOGY LAB NURSE FOR CONTINUITY OF CARE. PT IS IN STABLE CONDITION.
--- NOTE | 2019-09-15 20:00 | NUR ---
RECEIVED REPORT FROM MARIZOL. PT SEDATED RASS -3. DOES NOT OPEN EYES, ONLY WITHDRAWS TO PAIN. ETT TO VENT, ACVC 16, TV 450 PEEP 5. RHONCHI HEARD THROUGHOUT. SATURATIONS 91%. S1S2, SR ON MONITOR. BP STABLE. SKIN WARM AND DRY, AFEBRILE, 98.2, RECTAL THERMOMETER IN PLACE WITH COOLING BLANKET. PT CURRENTLY IN PRONE POSITION. JULIET 18G, FLUSHED AND PATENT, INFUSING PROPOFOL 40MCG/KG/MIN ( 17.76ML/HR). DRY WEIGHT 74KG. RIGHT WRIST 20G, FLUSHED AND PATENT, INFUSING NS AT 60ML/HR, AND FENTANYL 1 MCG/KG/MIN. OGT IN PLACE, FEEDING ON HOLD. DYER IN PLACE, WITH YELLOW URINE NOTED. SKIN NOT INTACT, SMALL PRESSURE INJURY TO LEFT BUTTOCK, OPTIFOAM DRESSING IN PLACE, AND SMALL BRUISING TO LEFT SIDE CHEEK, OPEN TO AIR. SOFT WRIST RESTRAINTS IN PLACE, NO INJURIES NOTED, CIRCULATION WITHIN RANGE. BED LOCKED AND SIDERAILS UP, REVERSE [place]. WILL CONTINUE TO MONITOR.
--- NOTE | 2019-09-15 20:02 | NUR ---
RECEIVED REPORT FROM AM SHIFT. PATIENT SEEN AND ASSESSED. PATIENT IS INTUBATED WITH ETT SIZE 7.5 AND SECURED WITH ANCHOR-FAST. AUSCULTATION REVEALS BILATERAL RALES BREATH SOUNDS. NOTICED ADEQUATE BILATERAL CHEST RISE AND FALL. PATIENT ON VENT SETTINGS AC/VC 16, 450, +8, 90% WITH SPO2 OF 92%. VENT PLUGGED IN RED OUTLET, HOB > 30 DEGREES, AMBU BAG AT BEDSIDE, AND ALARMS SET AND AUDIBLE. PATIENT IS IN NO RESPIRATORY DISTRESS AT THIS TIME. HHN TX GIVEN AND PT TOLERATED TX WELL WITH NO ADVERSE REACTION. SUCTION SMALL ACHARYA THICK SECRETIONS FROM TUBE. AIRWAY IS PATIENT. WILL CONTINUE TO MONITOR PATIENT.
[2019-09-16] VITALS (106 sets, daily range): BP systolic 84–169; BP diastolic 50–93
[2019-09-16] MEDS: BLOOD GLUCOSE MONITORING 1 DEV DEV FS SCH ×4 (00:50→18:30)
--- NOTE | 2019-09-16 00:50 | NUR ---
INCREASE IN PRESSURES. HME CHANGED, PT SUCTIONED, STILL HIGH PRESSURES. PT WAS SWITCHED FROM VC TO PC DUE TO INCREASE IN PRESSURE AND PLT >30 cmH20. CURRENT VENT SETTINGS PC 24, RR 16, 0.80, +8, 90%. SPO2 IMPROVED FROM 90% TO 95%. AT PRESSURE OF 24 cmH20 PT IS GETTING ABOUT 6-8 ml/kg BASED ON IBW. DR. ROB WAS NOTIFIED ABOUT THE CHANGES. WILL CONTINUE TO MONITOR PT.
[2019-09-16] MEDS: PROPOFOL 1000 MG/100 ML PREMIX 100 ML IV PRN ×4 (01:15→19:22)
--- NOTE | 2019-09-16 01:35 | NUR ---
PT SUDDENLY SHOWED HEART RATE ELEVATED TO 180's. RN AT BEDSIDE. ADJUST EKG LEADS, REPLACED WITH NEW ONES, REPLACED PULSE OX, ENSURED ALL PROBES AND LINES IN PLACE ON MONITOR. HEART RATE FLUCTUATING AND RHYTHM SHOWING SVT TO UNCONTROLLED AFIB. WAVE FORM FINALLY CAPTURING. HR ELEVATED IN 150'S-170's. RESIDENT MD MADE AWARE, ASKED TO COME TO BEDSIDE TO ASSESS PATIENT. ONE TIME 10 MG CARDIZEM IVP GIVEN. WILL CONTINUE TO MONITOR.
[2019-09-16] MEDS ORDERED: DILTIAZEM 25 MG/5 ML VIAL IVP ONE ×4 (02:05→02:40)
--- NOTE | 2019-09-16 02:30 | NUR ---
HR NOT IMPROVING, SECOND ORDER FOR CARDIZEM IVP CARRIED OUT.
--- NOTE | 2019-09-16 02:59 | NUR ---
KICKING MACHINE OPERATOR PAGED
--- NOTE | 2019-09-16 03:10 | NUR ---
DR. CHAUDHRY AWARE OF PATIENTS CHANGE OF CONDITION. NEW ORDER FOR ILA HAWLEY CARRIED OUT. RESIDENT MD AWARE OF NEW ORDER.
[2019-09-16] MEDS ORDERED: DILTIAZEM 125 MG/25 ML VIAL IV ONE (03:13)
[2019-09-16] MEDS: DILTIAZEM 125 MG in DEXTROSE 5% 100 ML IV SCH ×3 (03:25→19:20)
--- NOTE | 2019-09-16 04:40 | NUR ---
CARDIZEM DRIP INCREASED, MAXED AT 15 MG/HR.
[2019-09-16] MEDS: fentaNYL citrate 1 MG in NACL 0.9% 80 ML IV PRN ×2 (04:50→20:39)
--- NOTE | 2019-09-16 05:00 | NUR ---
PATIENT SUCCESSFULLY TURNED TO SUPINE POSITION. NO INJURIES NOTED. EKG LEADS PLACED ON CHEST. HOB 30 DEGREES, SIDERAILS UP. SPONGE BATH PROVIDED. NO BOWEL MOVEMENT NOTED. DRESSING AT SACRUM DRY AND INTACT. AIR CHECK COMPLETE AT OGT. CONFIRMED. STARTED TUBE FEEDING. FLACC 0. HR NOW IMPROVING TO 110's.
[2019-09-16 06:29] LABS: BASOPHILS % (AUTO) 0.1 % (0.0-2.0); EOSINOPHILS % (AUTO) 0.1 % (0.0-4.0); HEMOGLOBIN 13.5 g/dL (12.0-18.0); LYMPHOCYTES # (AUTO) 0.3 K/uL (2.0-11.5); LYMPHOCYTES % (AUTO) 2.7 % (20.5-51.1); MEAN CORPUSCULAR HEMOGLOBIN 32 pg (27-31); MEAN CORPUSCULAR HGB CONC 32 g/dL (33-37); MEAN CORPUSCULAR VOLUME 99.9 fL (80-94); MONOCYTES # (AUTO) 0.3 K/uL (0.8-1.0); MONOCYTES % (AUTO) 2.2 % (1.7-9.3); NEUTROPHILS # (AUTO) 11.4 K/uL (1.8-7.7); NEUTROPHILS % (AUTO) 94.9 % (42.2-75.2); PLATELET COUNT (AUTO) 40 K/uL (140-450); RED BLOOD CELL COUNT(AUTO) 4.21 MIL/uL (4.20-6.10); RED CELL DISTRIBUTION WIDTH 15.3 % (11.6-13.7)
--- NOTE | 2019-09-16 07:16 | NUR ---
RECEIVED BEDSIDE REPORT FROM [employer]ATE[employer] TV TECHNICIAN NURSE, PT SEDATED RASS -3. DRY WEIGHT 74KG, IV TO L UPPER ARM 18G, PATENT INTACT, INFUSING PROPOFOL AT 40MCG/KG/MIN, AND CARDIZEM AT15MG/HR, INFUSING WELL, IV TO RFA 20G, PATENT, INTACT, INFUSING NS @ 60ML/HR, AND FENTANYL AT 1 MCG/KG/HR, INFUSING WELL, PT ON ETT TO VENT, ACPC FIO2 90%, PEEP 8, RR 18, SATURATION 87%, NO SOB NOTED, DYER CATH IN PLACE DRAINING TO GRAVITY,INITIAL ASSESSMENT DONE, ALL SAFETY PRECAUTION MET, CALL LIGHT WITHIN REACH, WILL CONTINUE TO MONITOR. Addendum: 09/16/19 at 1605 by Keke Gutierrez RN OGT IN PLACE WITH FEEDING, PLACEMENT CONFIRMED WITH AUSCULTATION, RESIDUAL 200ML, FEEDING HELD,
[2019-09-16] MEDS: ALBUTEROL SULFATE/IPRATROPIU 3 ML SOL IH SCH ×3 (07:17→19:00)
--- NOTE | 2019-09-16 07:18 | NUR ---
RECEIVED ON A [employer] R860 VENTILATOR WITH COMPRESSOR ON TOLERATING WELL WITHOUT INCIDENT TO AN ENDOTRACHEAL TUBE #7.5 SECURED AT 24cm TEETH/GUM LINE WITH AN ANCHOR FAST CUFF PRESSURE CHECKED NOTED AMBU BAG AT BEDSIDE LOC SEDATED EQUAL CHEST RISE ENDOTRACHEAL SUCTION FOR SMALL THI [employer] AIRWAY PATENT
[2019-09-16 07:42] LABS: ALBUMIN 1.4 g/dL (3.4-5.0); ANION GAP 2.9 (8-16); CREATININE 0.9 mg/dL (0.6-1.3); MAGNESIUM 2.9 mg/dL (1.8-2.4); PHOSPHORUS 4.8 mg/dL (2.5-4.9); TOTAL BILIRUBIN 0.7 mg/dL (0.0-1.0)
[2019-09-16] MEDS: ZINC SULF 220 MG CAP PO SCH (08:43)
[2019-09-16] MEDS: LACTULOSE 20 GM/30 ML UDC PO SCH (08:43)
[2019-09-16] MEDS: PANTOPRAZOLE 40 MG INJ VIAL IVP SCH (08:43)
[2019-09-16] MEDS: DEXAMETHASONE 4 MG TAB PO SCH (08:44)
[2019-09-16] MEDS: ASCORBIC ACID 500 MG TAB PO SCH (08:46)
--- NOTE | 2019-09-16 08:46 | NUR ---
DUE MEDICATIONS ADMINISTERED, PT TOLERATED WELL, FC DONE, WILL CONTINUE TO MONITOR.
--- NOTE | 2019-09-16 09:55 | NUR ---
RESTING COMFORTABLY NO INDICATIONS OF PULMONARY DISTRESS NOTED GOOD CHEST RISE
[2019-09-16 10:03] LABS: CARBON DIOXIDE 43.4 mmol/L (21-32); POTASSIUM 6.3 mmol/L (3.5-5.1)
[2019-09-16] MEDS ORDERED: SODIUM POLYSTYRENE 15 GM/60 ML UDBTL PO SCH (10:45)
[2019-09-16] MEDS ORDERED: ALBUTEROL 0.083% 2.5 MG/3 ML NEBU INH SCH ×2 (11:00→17:13)
[2019-09-16] MEDS ORDERED: CALCIUM GLUCONATE 10% 1,000 MG in NACL 0.9% 50 ML IV SCH ×2 (11:00→17:45)
[2019-09-16] MEDS ORDERED: DEXTROSE 50% 50 ML SYR IVP SCH ×2 (11:00→17:14)
[2019-09-16] MEDS ORDERED: INSULIN REGULAR, HUMAN 100 UNIT/ML VIAL IVP SCH (11:00)
--- NOTE | 2019-09-16 11:14 | NUR ---
NO RESPIRATORY DISTRESS NOTED GOOD CHEST RISE AND AERATION THROUGHOUT BILATERAL LUNG RIVERA AIRWAY PATENT DECREASED I/TIME TO 0.60 SECONDS TO MAINTAIN EXPIRATORY RATIO OF EQUAL/GREATER THAN 2.0 SATURATION 92% ON FIO2 OF 90% TITRATED FIO2 TO 80% SHORE HAND DREDGE OR BARGE TO NOTIFY RN
--- NOTE | 2019-09-16 11:16 | NUR ---
DUE MEDICATION GIVEN PER DR ORDER, PT TOLERATED WELL, RESIDUAL CURRENTLY AT 300ML. FEEDING STILL HELD. PT RESTING, WILL CONTINUE TO MONITOR.
[2019-09-16] MEDS: INSULIN LISPRO SLIDING SCALE 100 UNITS/ML VIAL SUBQ PRN ×2 (12:07→18:30)
--- NOTE | 2019-09-16 13:23 | NUR ---
NO EVIDENCE OF SOB NOTED GOOD CHEST RISE AND AERATION THROUGHOUT BILATERAL LUNG RIVERA AIRWAY PATENT
--- NOTE | 2019-09-16 13:40 | NUR ---
CHECKED ON PT, PT RESTING, RESIDUAL CURRENTLY STILL 160ML. WILL CONTINUE TO HOLD FEEDING
--- NOTE | 2019-09-16 13:58 | NUR ---
09/16/19 RD FOLLOW UP COMPLETED PLEASE REFER TO NUTRITION ASSESSMENT UNDER CARE ACTIVITY FOR ESTIMATED NUTRITIONAL NEEDS. 1. RD RECOMMENDED NEPRO 1.8 @ 35 ML/HR GOAL. -THIS WILL PROVIDE 604 ML OF WATER, 1512 CALORIES AND 68 GM OF PROTEIN WHICH MEETS ADEQUATE NUTRIENT NEEDS 2. HOLD FEEDINGS IF RESIDUALS ARE OVER 100 ML. RESTART FEEDINGS IF RESIDUALS <50 ML PER PHYSICIAN ORDER. RESTART FEEDINGS AT 10 ML/HR. 3. CONTINUE FREE WATER FLUSH OF 95 ML Q4H PER MD 4. CONTINUE VITAMIN C AND ZINC 5. RD TO FOLLOW-UP 2-3 DAYS, HIGH RISK SHARMIN ELIZABETH RD
--- NOTE | 2019-09-16 15:30 | NUR ---
RESIDUAL 75ML, FEEDING RESTARTED WITH NEPRO @ 35ML/HR. WILL CONTINUE TO MONITOR.
[2019-09-16] MEDS: NACL 0.9% 1,000 ML IV SCH (15:57)
--- NOTE | 2019-09-16 15:58 | NUR ---
NO EVIDENCE OF DISTRESS NOTED GOOD CHEST RISE AIRWAY PATENT
[2019-09-16 16:38] LABS: ANION GAP -0.3 (8-16); CREATININE 1.1 mg/dL (0.6-1.3)
[2019-09-16] MEDS: ACETAMINOPHEN 325 MG TAB PO PRN (16:38)
[2019-09-16 16:43] LABS: CARBON DIOXIDE 44.4 mmol/L (21-32); POTASSIUM 6.1 mmol/L (3.5-5.1)
[2019-09-16] MEDS ORDERED: INSULIN REGULAR, HUMAN 100 UNIT/ML VIAL IV SCH (17:13)
[2019-09-16] MEDS ORDERED: SODIUM ZIRCONIUM CYCLOSILICATE 10 GM POWD.PACK PO SCH (17:14)
--- NOTE | 2019-09-16 17:45 | NUR ---
SEDATED EQUAL CHEST RISE ENDOTRACHEAL SUCTION FOR MODERATE SEMI THICK ACHARYA SECRETIONS SPUTUM CULTURE OBTAINED
--- NOTE | 2019-09-16 18:00 | NUR ---
PLACED IN PRONE POSITION SUCCESSFULLY WITHOUT COMPLICATIONS
[2019-09-16] MEDS: PIPERACILLIN/TAZOBACTAM 3.375 GM in DEXTROSE 5% 50 ML IV SCH (19:22)
--- NOTE | 2019-09-16 19:47 | NUR ---
RRECEIVED REPORT FROM [facility] NURSE. PT CURRENTLY IN PRONE POSITION, COOLING BLANKET IN PLACE, RECTAL TEMP READS 98.9. ETT TO VENT, ACPC FI02 100%, RATE 16, PEEP 10. SATURATIONS 94%. RR 24. NO DISTRESS NOTED. LEFT UPPER ARM 18G, PATENT, INFUSING PROPOFOL @ 40 MCG/KG/MIN (17.76 ML/HR), RASS -3, PT WITHDRAWS WITH SOME PAIN. DRY WEIGHT 74KG. RIGHT WRIST 20 G, FLUSHED AND PATENT, INFUSING FENTANYL @ 1MCG/KG/HR (7.4 ML/HR). IVF NS @ 60ML/HR, ANTIBIOTICS CURRENTLY INFUSING. OGT IN PLACE. FEEDING ON HOLD. DYER CATHETER DRAINING JORGE ALBERTO URINE BY GRAVITY. SKIN NOT INTACT, SMALL BLISTER TO INNER RIGHT BUTTOCK AND SOME BRUISING NOTED AT THE NOSE. SIDERAILS UP, BED LOCKED, REVERSE [place]. DROPLET PRECAUTIONS IN PLACE. WILL CONTINUE TO MONITOR. Addendum: 09/16/19 at 1999 by Savi Sterling RN CARDIZEM INFUSING 15ML/HR. HR 86 BPM AND BP 154/61
--- NOTE | 2019-09-16 20:11 | NUR ---
RECEIVED PT FROM DAY SHIFT ON DOCUMENTED SETTINGS. VENT PLUGGED INTO RED OUTLET/ BMV AT BEDSIDE. ETT SECURED. PT IS IN PRONE POSITION. NO DISTRESS NOTED. WILL CONT TO MONITOR
--- NOTE | 2019-09-16 23:00 | NUR ---
HR SUDDENLY INCREASED FROM 90's TO 130-150's. RHYTHM STILL REGULAR, ST. NO SIGNS OF DISTRESS. PATIENT SEDATED RASS -3.
[2019-09-17] VITALS (105 sets, daily range): BP systolic 80–168; BP diastolic 38–73
--- NOTE | 2019-09-17 00:10 | NUR ---
REMAINS IN PRONE POSITION.HR STILL ELEVATED. CARDIZEM DRIP INFUSING AT 15MG/HR. ASSESSED IV LINE, PATENT AND STILL INFUSING WELL. PROVIDED ORAL CARE. FLACC 0. WILL CONTINUE TO MONITOR.
[2019-09-17] MEDS: INSULIN LISPRO SLIDING SCALE 100 UNITS/ML VIAL SUBQ PRN ×4 (00:59→23:53)
[2019-09-17] MEDS: PROPOFOL 1000 MG/100 ML PREMIX 100 ML IV PRN ×4 (02:04→22:00)
--- NOTE | 2019-09-17 02:10 | NUR ---
ADJUSTED PATIENTS POSITION. STILL NO BOWEL MOVEMENT. OFFLOADED PRESSURE AREAS WITH PILLOWS. FOAM PROTECTORS IN PLACE. BED LOCKED AND IN LOWEST POSITION. SIDERAILS UP.
--- NOTE | 2019-09-17 04:00 | NUR ---
DECREASED PROPOFOL. PATIENT NOT RESPONDING TO DEEP PAIN. TEMP WITHIN RANGE. WILL CONTINUE TO MONITOR. SAFETY MEASURES IN PLACE
[2019-09-17] MEDS ORDERED: DILTIAZEM 125 MG/25 ML VIAL IV ONE (05:02)
--- NOTE | 2019-09-17 05:15 | NUR ---
PATIENT SUCCESSFULLY SUPINED WITHOUT COMPLICATIONS. PROVIDED SPONGE BATH, ORAL CARE, AND DYER CARE. NO SIGNS OF DISTRESS. RT AT BEDSIDE FOR LAVAGE, SLIGHT GAG REFLEX/WITHDRAW TO DEEP PAIN. FLACC 0. RESTRAINTS REMAIN IN PLACE. WILL CONTINUE TO MONITOR.
--- NOTE | 2019-09-17 06:00 | NUR ---
DESATTING IN PRONE POSITION, IN HIGH 80's. PATIENT ALREADY 100% FI02. NO SIGNS OF DISTRESS. RT AWARE.
[2019-09-17] MEDS: PIPERACILLIN/TAZOBACTAM 3.375 GM in DEXTROSE 5% 50 ML IV SCH ×6 (06:15→23:52)
[2019-09-17 06:35] LABS: HEMATOCRIT 36.9 % (36-52); HEMOGLOBIN 11.7 g/dL (12.0-18.0); MEAN CORPUSCULAR HEMOGLOBIN 32 pg (27-31); MEAN CORPUSCULAR HGB CONC 32 g/dL (33-37); MEAN CORPUSCULAR VOLUME 101.7 fL (80-94); RED BLOOD CELL COUNT(AUTO) 3.63 MIL/uL (4.20-6.10); RED CELL DISTRIBUTION WIDTH 15.2 % (11.6-13.7); WHITE BLOOD COUNT (AUTO) 21.1 K/uL (4.8-10.8)
[2019-09-17] MEDS: BLOOD GLUCOSE MONITORING 1 DEV DEV FS SCH ×5 (06:55→23:52)
[2019-09-17] MEDS: DILTIAZEM 125 MG in DEXTROSE 5% 100 ML IV SCH (07:09)
--- NOTE | 2019-09-17 07:20 | NUR ---
RECEIVED BEDSIDE REPORT FROM CABLE SPLICER APPRENTICE NURSE, PT SEDATED RASS -3, DRY WEIGHT 74KG, IV TO L UPPER ARM 18G, PATENT INTACT, RUNNING PROPOFOL @ 30MCG/KG/MIN, AND CARDIZEM 15MG/HR, INFUSING WELL, IV TO R WRIST 20G PATENT INTACT, INFUSING FENTANYL @ 1MCG/KG/HR, AND NS @ 60ML/HR, INFUSING WELL. PT ON ETT TO VENT, FIO2 100%, PEEP OF 8, SATURATION AT 86% AT THIS MOMENT. NGT IN PLACE WITH FEEDING, TOLERATING WELL, RESIDUAL 65ML, FC IN PLACE DRAINING TO GRAVITY, INITIAL ASSESSMENT DONE, ALL SAFETY PRECAUTION MET, CALL LIGHT WITHIN REACH, WILL CONTINUE TO MONITOR.
[2019-09-17 07:34] LABS: PLATELET COUNT (AUTO) 42 K/uL (140-450)
[2019-09-17 07:35] LABS: LYMPHOCYTES % (MANUAL) 3 % (20-46); MONOCYTES % (MANUAL) 3 % (5-12)
[2019-09-17] MEDS: ALBUTEROL SULFATE/IPRATROPIU 3 ML SOL IH SCH ×3 (07:37→20:16)
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
[2019-09-17 08:00] LABS: ANION GAP 4.3 (8-16); CREATININE 1.6 mg/dL (0.6-1.3)
[2019-09-17] MEDS: NACL 0.9% 1,000 ML IV SCH (08:25)
[2019-09-17 09:04] LABS: TOTAL BILIRUBIN 0.8 mg/dL (0.0-1.0)
[2019-09-17 09:05] LABS: ALBUMIN 1.5 g/dL (3.4-5.0); MAGNESIUM 2.9 mg/dL (1.8-2.4)
[2019-09-17 09:08] LABS: CARBON DIOXIDE 43.7 mmol/L (21-32)
[2019-09-17] MEDS: ZINC SULF 220 MG CAP PO SCH (09:15)
[2019-09-17] MEDS: ASCORBIC ACID 500 MG TAB PO SCH (09:15)
[2019-09-17] MEDS: PANTOPRAZOLE 40 MG INJ VIAL IVP SCH (09:15)
[2019-09-17] MEDS ORDERED: ALBUMIN HUMAN 25% 50 ML IV SCH (11:00)
--- NOTE | 2019-09-17 11:01 | NUR ---
SEDATED GOOD CHEST RISE NO DISTRESS NOTED
--- NOTE | 2019-09-17 11:35 | NUR ---
DR. KAT AT BEDSIDE, NOTIFIED DR REGARDING PT HAS BEEN MAKING ONLY A LITTLE URINE SINCE AM, DR STATED UNDERSTANDING.
--- NOTE | 2019-09-17 11:42 | NUR ---
PER DR CERVANTES TO HOLD OFF ON THE ALBUMIN AT THIS MOMENT, WILL CONTINUE TO MONITOR.
[2019-09-17] MEDS ORDERED: acetaZOLAMIDE sodium 250 MG in NACL 0.9% 50 ML IV SCH (11:45)
--- NOTE | 2019-09-17 11:45 | NUR ---
PT BLOOD PRESSURE PERSISTENTLY LOW, CARDIZEM DRIP HELD, DR. KUO, WILL CONTINUE TO MONITOR.
[2019-09-17] MEDS ORDERED: NACL 0.45% 1,000 ML IV SCH (11:55)
[2019-09-17] MEDS ORDERED: NOREPINEPHRINE 16 MG in DEXTROSE 5% 250 ML IV PRN (11:55)
[2019-09-17] MEDS ORDERED: BUMETANIDE 1 MG/4 ML VIAL IV SCH (12:00)
[2019-09-17] MEDS ORDERED: acetaZOLAMIDE sodium 500 MG VIAL IVP SCH (12:00)
[2019-09-17] MEDS: fentaNYL citrate 1 MG in NACL 0.9% 80 ML IV PRN (12:36)
[2019-09-17 13:18] LABS: CREATININE 2.2 mg/dL (0.6-1.3)
[2019-09-17 13:24] LABS: CARBON DIOXIDE 44.5 mmol/L (21-32); POTASSIUM 6.5 mmol/L (3.5-5.1)
--- NOTE | 2019-09-17 13:31 | NUR ---
SEDATED EQUAL CHEST RISE ENDOTRACHEAL SUCTION FOR LARGE THIN TO SEMI THICK YELLOW WITH BLOOD TINGE SECRETIONS AIRWAY PATENT SATURATION 94% ON FIO2 OF 100% POST HHN THERAPY TITRATED FIO2 TO 95% HALLEY/RN NOTIFIED
[2019-09-17] MEDS ORDERED: SODIUM BICARBONATE 8.4% PFS 50 MEQ/50 ML SYR IVP SCH (14:40)
[2019-09-17] MEDS ORDERED: ALBUTEROL 0.083% 2.5 MG/3 ML NEBU INH SCH (14:50)
[2019-09-17] MEDS ORDERED: INSULIN REGULAR, HUMAN 100 UNIT/ML VIAL IV SCH (15:00)
[2019-09-17] MEDS ORDERED: DEXTROSE 50% 50 ML SYR IVP SCH (15:00)
[2019-09-17] MEDS ORDERED: VANCOMYCIN PER PHARMACY MC PRN (15:10)
--- NOTE | 2019-09-17 15:15 | NUR ---
NOTIFIED DR. RADFORD REGARDING PT POSITIVE BLOOD CULTURE GRAM NEGATIVE AND GRAM POSITIVE, PER TO ORDER VANCOMYCIN PER PHARMACY. WILL PUT IN ORDER AND CONTINUE WITH ORDERS.
[2019-09-17] MEDS ORDERED: CALCIUM GLUCONATE 10% 1,000 MG in NACL 0.9% 50 ML IV SCH (15:30)
[2019-09-17] MEDS ORDERED: VANCOMYCIN 1,000 MG in DEXTROSE 5% 250 ML IV SCH (16:00)
--- NOTE | 2019-09-17 16:18 | NUR ---
NO DISTRESS NOTED EQUAL CHEST RISE
--- NOTE | 2019-09-17 17:53 | NUR ---
SEDATED NO DISTRESS NOTED GOOD CHEST RISE ENDOTRACHEAL SUCTION FOR LARGE THICK TO THIN YELLOW WITH BLOOD TINGES SECRETIONS SATURATION 95%-96% ON FIO2 OF 95% TITRATED FIO2 TO 85% HALLEY/RN NOTIFIED
--- NOTE | 2019-09-17 19:00 | NUR ---
DR WYNN INSERTED DIALYSIS CATHETER TO [facility], MICAH CATH WITH A PIGTAIL, PT TOLERATED WELL, NO DISTRESS NOTED.
--- NOTE | 2019-09-17 19:20 | NUR ---
ENDORSED PT TO INTEGRATED PROGRAM TEACHER NURSE ABEL DODD FOR CONTINUOUS OF CARE.
--- NOTE | 2019-09-17 19:21 | NUR ---
REPORT RECEIVED FROM AM NURSE AT BEDSIDE. PT IN STABLE CONDITION. AAOX0 RASS-3. DRY WEIGHT 74KG. PT SEDATED ON FENTANYL AND PROPOFOL. FLACC 0. NO SOB ETT TO VENT. VENT SETTINGS AC PC FIO2@80%, RR 16, PEEP 12, O2 SATURATION@93%. AFEBRILE@99.1. PT IS ON BEDREST. PT HAS DYER NOT DRAINING URINE DUE TO MANJULA. PT HAS OGTUBE CONNECTED TO FEEDING. NEPRO@35ML/HR WITH 300ML H2O FLUSH Q4H PATENT AND INTACT. IV SITE R WRIST 20G RUNNING FENTANYL@1MCG/KG/HR OR 7.4ML/HR AND NS@60ML/HR PATENT AND INTACT. L UA 18G RUNNING PROPOFOL@25MCG/KG/MIN OR 11.1ML/HR PATENT AND INTACT. SKIN WARM, DRY, AND NOT INTACT DUE TO WOUND ON THE R CHEEK AND AND ANUS. BED LOCKED IN LOW POSITION. CALL GIORDANO WITHIN REACH. SAFETY PRECAUTION IN PLACE. ALL NEEDS MET AT THIS TIME.
--- NOTE | 2019-09-17 20:30 | NUR ---
PT PLACED IN PRONE POSITION.
--- NOTE | 2019-09-17 20:41 | NUR ---
RECEIVED PT FROM DAY SHIFT ON DOCUMENTED SETTINGS. VENT PLUGGED INTO RED OUTLET/ BMV AT BEDSIDE. ETT SECURED. PT PLACED IN PRONE POSITION. SX SMALL AMOUNT OF THICK YELLOW SECRETION.NO DISTRESS NOTED. WILL CONT TO MONITOR
[2019-09-17] MEDS: FUROSEMIDE 20 MG/2 ML VIAL IVP SCH (20:59)
--- NOTE | 2019-09-17 20:59 | NUR ---
LASIX GIVEN. PT TOLERATED WELL.
[2019-09-17 21:51] LABS: CREATININE 2.7 mg/dL (0.6-1.3)
--- NOTE | 2019-09-17 21:55 | NUR ---
CRITICAL LAB VALUES CALLED IN CO2@46, BUN 105, CR 2.7. NOTIFIED. NO CHANGE IN ORDERS.
--- NOTE | 2019-09-17 22:00 | NUR ---
PROPOFOL NEW BOTTLE HUNG FOR CONTINUOUS DRIP.
--- NOTE | 2019-09-17 23:52 | NUR ---
FRANCE BARRAZA AND RUNNING. BS 189. 2 UNITS OF HUMALOG GIVEN.
[2019-09-18] VITALS (99 sets, daily range): BP systolic 100–192; BP diastolic 49–106
--- NOTE | 2019-09-18 01:45 | NUR ---
PT CURRENTLY ON SEDATION. NO S/S OF DISTRESS NOTED.
--- NOTE | 2019-09-18 04:00 | NUR ---
PT CURRENTLY ON SEDATION. NO S/S OF DISTRESS NOTED.
[2019-09-18] MEDS: fentaNYL citrate 1 MG in NACL 0.9% 80 ML IV PRN ×2 (04:09→23:00)
--- NOTE | 2019-09-18 04:09 | NUR ---
NEW FENTANYL BAG HUNG FOR CONTINUOUS DRIP.
--- NOTE | 2019-09-18 04:31 | NUR ---
PT REMAINS ON DOCUMENTED SETTINGS. PT IN PRONE POSITION. PATENT AIRWAY. NO DISTRESS NOTED. ALARMS SET. ETT SECURED. WILL CONT TO MONITOR
[2019-09-18] MEDS: NACL 0.9% 1,000 ML IV SCH ×2 (04:58→17:42)
--- NOTE | 2019-09-18 05:31 | NUR ---
ABG CRITICAL RESULTS SHOWN TO DR. ROB. PER ABG RESULTS. INSPIRATOR PRESSURE INCREASED FROM 28 TO 30, RR INCREASED FROM 16 TO 20. PEAK PRESSURE REMAINS THE SAME. NO DISTRESS NOTED. WILL CONT TO MONITOR
[2019-09-18] MEDS: BLOOD GLUCOSE MONITORING 1 DEV DEV FS SCH ×3 (05:53→18:17)
[2019-09-18] MEDS: PIPERACILLIN/TAZOBACTAM 3.375 GM in DEXTROSE 5% 50 ML IV SCH ×3 (05:53→17:51)
--- NOTE | 2019-09-18 05:53 | NUR ---
FRANCE BARRAZA AND RUNNING. BS 145. NO INSULIN COVERAGE NEEDED.
[2019-09-18 06:58] LABS: ALBUMIN 1.1 g/dL (3.4-5.0); ANION GAP 5.2 (8-16); MAGNESIUM 2.8 mg/dL (1.8-2.4); PHOSPHORUS 5.3 mg/dL (2.5-4.9); TOTAL BILIRUBIN 0.8 mg/dL (0.0-1.0)
--- NOTE | 2019-09-18 07:00 | NUR ---
ASSIGNED TO PT WITH 0 HOURS OF ICU ORIENTATION.
[2019-09-18] MEDS: PROPOFOL 1000 MG/100 ML PREMIX 100 ML IV PRN ×2 (07:31→20:58)
--- NOTE | 2019-09-18 07:45 | NUR ---
TRANSFER OF CARE REPORT RECEIVED FROM BEHZAD DODD. PT IS PLACED IN PRONE POSITION AT THIS TIME. RESP EVEN AND UNLABORED. VSS. BED IN LOWEST POSITION.
[2019-09-18] MEDS: ALBUTEROL SULFATE/IPRATROPIU 3 ML SOL IH SCH ×3 (07:55→20:40)
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
--- NOTE | 2019-09-18 08:00 | NUR ---
RASS -3, TOLERATING SEDATION WELL. LACERATION NOTED ON BOTTOM LIP. REDUCED FRICTION OF OG TUBE AND ET TUBE AT THIS TIME.
--- NOTE | 2019-09-18 08:27 | NUR ---
CALLED DR. ANA MARIA OKEEFE [phone] REVIEWED ABG SAMPLE REPORT NO NEW ORDERS
[2019-09-18] MEDS: FUROSEMIDE 20 MG/2 ML VIAL IVP SCH ×2 (09:16→22:39)
[2019-09-18] MEDS: PANTOPRAZOLE 40 MG INJ VIAL IVP SCH (09:17)
[2019-09-18] MEDS: ZINC SULF 220 MG CAP PO SCH (09:17)
[2019-09-18] MEDS: ASCORBIC ACID 500 MG TAB PO SCH (09:17)
--- NOTE | 2019-09-18 09:30 | NUR ---
PROVIDED SPONGE BATH, ORAL CARE, AND DYER CARE. NO SIGNS OF DISTRESS.
[2019-09-18 09:34] LABS: CARBON DIOXIDE 43.8 mmol/L (21-32)
--- NOTE | 2019-09-18 09:38 | NUR ---
REMAINS IN PRONE POSITION GOOD CHEST RISE
--- NOTE | 2019-09-18 09:50 | NUR ---
PT PLACED IN SUPINE POSITION HIGH FOWLERS WITH RT AND 2 RN AT BEDSIDE, NO COMPLICATIONS PRESENT AT THIS TIME
--- NOTE | 2019-09-18 09:53 | NUR ---
PLACED IN SUPINE POSITION SUCCESSFULLY WITHOUT COMPLICATIONS
--- NOTE | 2019-09-18 09:55 | NUR ---
POST SUPINE SATURATION DESCENDING TO 84% INCREASED FIO2 TO 75% TO MAINTAIN SATURATION EQUAL/GREATER THAN 88% SOCIAL WORKER CLINICAL TO MONITOR
--- NOTE | 2019-09-18 10:47 | NUR ---
DR KRISTI GANDARA FOR DR NORTH MCADAMS FOR HD ORDER.
--- NOTE | 2019-09-18 11:19 | NUR ---
DR BERRY CALLED BACK, NOTIFIED HIM OF NO HD ORDER, DR BERRY WILL COME TO SEE PT BEFORE ORDERING HD.
[2019-09-18 11:27] LABS: HEMOGLOBIN 9.8 g/dL (12.0-18.0)
[2019-09-18 11:28] LABS: HEMATOCRIT 31.1 % (36-52); LYMPHOCYTES % (AUTO) 1.2 % (20.5-51.1); MEAN CORPUSCULAR HEMOGLOBIN 32 pg (27-31); MEAN CORPUSCULAR HGB CONC 31 g/dL (33-37); MEAN CORPUSCULAR VOLUME 100.4 fL (80-94); NEUTROPHILS % (AUTO) 95.4 % (42.2-75.2); PLATELET COUNT (AUTO) 20 K/uL (140-450); RED CELL DISTRIBUTION WIDTH 15.2 % (11.6-13.7)
[2019-09-18 11:29] LABS: BASOPHILS % (AUTO) 0.4 % (0.0-2.0); LYMPHOCYTES # (AUTO) 0.1 K/uL (2.0-11.5); MONOCYTES # (AUTO) 0.3 K/uL (0.8-1.0); NEUTROPHILS # (AUTO) 10.9 K/uL (1.8-7.7); WHITE BLOOD COUNT (AUTO) 11.4 K/uL (4.8-10.8)
--- NOTE | 2019-09-18 11:35 | NUR ---
DR BERRY AT BEDSIDE FOR EVAL
--- NOTE | 2019-09-18 12:00 | NUR ---
PT PLACED ON RIGHT SIDE LYING POSITION. VSS.
[2019-09-18] MEDS: INSULIN LISPRO SLIDING SCALE 100 UNITS/ML VIAL SUBQ PRN ×2 (12:36→18:24)
--- NOTE | 2019-09-18 13:28 | NUR ---
CALLED DR. JOHANN MORTON [phone] TO REVIEW ABG SAMPLE REPORT
--- NOTE | 2019-09-18 13:29 | NUR ---
CALL BACK FROM DR. JOHANN MORTON REVIEWED ABG SAMPLE REPORT NEW ORDER: DECREASE INSPIRATORY TO 28 INCREASE RATE 22 INCREASE I/TIME 0.55 (RT TO ADJUST NEEDED)
[2019-09-18] MEDS: ACETYLCYSTEINE 10% (100 MG/ML) 100 MG/ML VIAL INH SCH ×2 (13:45→20:41)
--- NOTE | 2019-09-18 14:00 | NUR ---
PT PLACED ON LEFT SIDE LYING POSITION
--- NOTE | 2019-09-18 14:20 | NUR ---
DIALYSIS NURSE NICKOLAS CALLED TO INFORM OF DIALYSIS ORDER.
--- NOTE | 2019-09-18 14:43 | NUR ---
INCREASE IN PTS HEART RATE TO 136, FENTANYL INCREASED TO 1.5MCGS, 11.1 ML/HR. WILL CONTINUE TO MONITOR AND ASSESS
--- NOTE | 2019-09-18 15:40 | NUR ---
NEW BAG OF FENTANYL HUNG
--- NOTE | 2019-09-18 16:00 | NUR ---
PT PLACED SUPIN. HOB AT 30 DEGREES
--- NOTE | 2019-09-18 16:05 | NUR ---
SPOKE WITH RESIDENT MALDONADO REGARDING PTS TACHY HEART RATE. CARDIZEM DRIP TO BE STARTED
[2019-09-18] MEDS: DILTIAZEM 125 MG in DEXTROSE 5% 100 ML IV SCH (16:43)
--- NOTE | 2019-09-18 17:20 | NUR ---
CARDIZEM TITRATED TO 15MG, HR AT 125
--- NOTE | 2019-09-18 17:30 | NUR ---
DIALYSIS AT BEDSIDE
--- NOTE | 2019-09-18 17:50 | NUR ---
SEDATED NO RESPIRATORY DISTRESS NOTED GOOD CHEST RISE ENDOTRACHEAL SUCTION FOR MODERATE THIN YELLOW WITH BLOOD TINGE SECRETIONS AIRWAY PATENT
--- NOTE | 2019-09-18 19:30 | NUR ---
ASSUMED CARE OF PT.INITIAL ASSESSMENT COMPLETED.PT SEDATED.AFIB NOTED ON MONITOR.ETT TO VENT AC/PC MODE FIO2 75% RATE 22.ORAL/ETT SECRETIONS SUCTIONED.SMALL AMT OF CREAMY WITH PINK TINGED COLORED SECRETIONS SUCTIONED.OGT ALSO IN PLACE.PT ON NEPRO AT 35ML/HR WITH WATER FLUSH ORDERED.30ML RESIDUALS NOTED.W/PERIPHERAL IV TO RT WRIST INFUSING CARDIZEM DRIP AT 15MG/HR,NS AT 60ML/HR AND FENTANYL DRIP AT 1.5MCG/KG/HR(11.1ML/HR) AND JULIET INFUSING PROPOFOL DRIP AT 25MCG/KG/MIN(11.1ML/HR). DRY WEIGHT 74 KG.W/DYER CATHER TO BSD DRAINING ADEQUATE AMT OF LIGHT JORGE ALBERTO URINE.W/BILATERAL SOFT WRIST RESTRAINTS.NO INJURIES NOTED AT THIS TIME.FLACC 0. BRUISING TO RT SIDE STILL NOTED AND SMALL OPEN WOUND TO RT BUTTOCKS ALSO NOTED.FOAM DRESSING DRY AND INTACT
--- NOTE | 2019-09-18 20:44 | NUR ---
RECVD PT FROM DAY SHIFT ON DOCUMENTED SETTINGS. VENT PLUGGED INTO RED OUTLET. BMV AT BEDSIDE.ETT SECURED. ALARMS SET. NO DISTRESS NOTED. WILL CONT TO MONITOR
--- NOTE | 2019-09-18 21:00 | NUR ---
STILL ONGOING HEMODIALYSIS.LASIX NOT ADMINISTERED AT THIS TIME; PER HD TO GIVE LASIX AFTER HD
--- NOTE | 2019-09-18 21:34 | NUR ---
UNABLE TO ADMINISTER 1900 TX. PT WAS RECEIVING DIALYSIS. NO DISTRESS NOTED AT THAT TIME. WILL CONT TO MONITOR
--- NOTE | 2019-09-18 22:48 | NUR ---
PT PLACED IN PRONE POSITION. HEAD TILT TO THE RIGHT. PATENT AIRWAY. SX SMALL TO MODERATE AMOUNT OF THICK CREAMY SECRETION. NO DISTRESS NOTED. WILL CONT TO MONITOR
[2019-09-19] VITALS (93 sets, daily range): BP systolic 51–191; BP diastolic 3–59
--- NOTE | 2019-09-19 | NUR ---
PT STILL ON PRONE POSITION.CONDITION REMAINS UNCHANGED.STILL ON CARDIZEM DRIP; PROPOFOL DRIP AND FENTANYL DRIPS.FLACC 0.
[2019-09-19] MEDS ORDERED: DILTIAZEM 125 MG/25 ML VIAL IV ONE (00:22)
[2019-09-19] MEDS: DILTIAZEM 125 MG in DEXTROSE 5% 100 ML IV SCH (00:25)
[2019-09-19] MEDS: PIPERACILLIN/TAZOBACTAM 3.375 GM in DEXTROSE 5% 50 ML IV SCH ×4 (00:25→17:08)
[2019-09-19] MEDS: NACL 0.9% 1,000 ML IV SCH (00:31)
[2019-09-19] MEDS: BLOOD GLUCOSE MONITORING 1 DEV DEV FS SCH ×4 (00:35→16:18)
[2019-09-19] MEDS: hydrALAZINE 20 MG/ML VIAL IVP PRN (01:08)
--- NOTE | 2019-09-19 02:00 | NUR ---
pt still prone position.ogt still on hold.flacc 0
--- NOTE | 2019-09-19 04:09 | NUR ---
PT REMAINS ON DOCUMENTED SETTINGS.ETT SECURED. ALARMS SET. AIRWAY PATENT. PT REMAINS PRONE. INC. FIO2 TO 100% NO DISTRESS NOTED. WILL CONT TO MONITOR
--- NOTE | 2019-09-19 06:11 | NUR ---
bs 78; no insulin coverage needed.flacc 0
[2019-09-19 07:09] LABS: HEPATITIS A ANTIBODY IGM Negative (Negative); HEPATITIS B SURFACE ANTIBODY Reactive (.); HEPATITIS B SURFACE ANTIGEN Negative (Negative)
--- NOTE | 2019-09-19 07:21 | NUR ---
REPORT GIVEN TO AIDA; PT STILL ON PRONE POSITION.CARDIZEM DRIP AT 10 MG/HR; PROPOFOL DRIP AT 15MCG/KG/MIN AND FENTANYL DRIP AT 0.5MCG/KG/HR.FLACC 0
[2019-09-19 07:23] LABS: WHITE BLOOD COUNT (AUTO) 16.7 K/uL (4.8-10.8)
[2019-09-19 07:24] LABS: MEAN CORPUSCULAR HEMOGLOBIN 32 pg (27-31); MEAN CORPUSCULAR HGB CONC 31 g/dL (33-37); MEAN CORPUSCULAR VOLUME 101.6 fL (80-94); RED BLOOD CELL COUNT(AUTO) 3.15 MIL/uL (4.20-6.10); RED CELL DISTRIBUTION WIDTH 15.5 % (11.6-13.7)
[2019-09-19 07:25] LABS: PLATELET COUNT (AUTO) 21 K/uL (140-450)
[2019-09-19 07:26] LABS: LYMPHOCYTES % (MANUAL) 2 % (20-46); MONOCYTES % (MANUAL) 5 % (5-12)
[2019-09-19] MEDS: ALBUTEROL SULFATE/IPRATROPIU 3 ML SOL IH SCH ×3 (07:42→19:00)
[2019-09-19] MEDS: ACETYLCYSTEINE 10% (100 MG/ML) 100 MG/ML VIAL INH SCH ×3 (07:42→19:00)
[2019-09-19 07:45] LABS: ALBUMIN 1.2 g/dL (3.4-5.0); ANION GAP 8.8 (8-16); CARBON DIOXIDE 35.2 mmol/L (21-32); CREATININE 2.8 mg/dL (0.6-1.3); MAGNESIUM 2.1 mg/dL (1.8-2.4); PHOSPHORUS 7.7 mg/dL (2.5-4.9); TOTAL BILIRUBIN 0.8 mg/dL (0.0-1.0)
--- NOTE | 2019-09-19 07:48 | NUR ---
RECEIVED CRITICAL LAB FOR CR 12.8, CA 7.[address] RENE MADE AWARE AND NO ORDER RECEIVED AT THIS TIME.
--- NOTE | 2019-09-19 07:50 | NUR ---
REPORT RECEIVED @2665 FROM [facility] NURSE AT BEDSIDE. PT IN STABLE CONDITION. PT SEDATED TO RASS -3 ON FENTANYL AND VERSED. DRY WEIGHT KG. FLACC 0. NO SOB ON ETT TO VENT. VENT SETTINGS AC V/C FIO2@100%, VT 450, RR , PEEP O2 SATURATION@94%. AFEBRILE@97.3. PT IS IN PRONE POSITION. TO BE SUPINED AT 1030AM, DYER TO GRAVITY DARK JORGE ALBERTO URINE. NG TUBE CLAMPED AT THIS TIME FOR PRONE POSITIONING. IV SITE R W 20, LEFT AC 18G, RIJ HD CATH WITH PIGTAIL, ALL SITES WNL, BILAT UPPER ARMS WITH SWELLING, WILL NOTIFY , PT ON FENTANYL @ 0.5MCG/KG/HR AND PROPOFOL AT 15MCG. CARDIZEM AT 5MG, VITALS STABLE ON MONITOR, POC REVIEWED, SKIN WARM, DRY COLOR WNL, BED LOCKED IN LOW POSITION. CALL GIORDANO WITHIN REACH. SAFETY PRECAUTION IN PLACE. POC REVIEWED,ALL NEEDS MET AT THIS TIME.
[2019-09-19 08:07] LABS: ANION GAP 7.1 (8-16); CARBON DIOXIDE 34.9 mmol/L (21-32); CREATININE 2.8 mg/dL (0.6-1.3)
[2019-09-19] MEDS: ASCORBIC ACID 500 MG TAB PO SCH (09:00)
[2019-09-19] MEDS: PANTOPRAZOLE 40 MG INJ VIAL IVP SCH (09:00)
[2019-09-19] MEDS: ZINC SULF 220 MG CAP PO SCH (09:00)
[2019-09-19] MEDS ORDERED: VITAMIN D 400 IU TAB PO SCH (09:00)
[2019-09-19] MEDS: FUROSEMIDE 20 MG/2 ML VIAL IVP SCH ×2 (09:00→20:25)
--- NOTE | 2019-09-19 09:45 | NUR ---
ILA JUDGE HELD FOR LOW BP 82/35, HR 84.
--- NOTE | 2019-09-19 10:06 | NUR ---
PT NOTED TO BE IN BRADYCARDIA IN 30-40'S ON MONITOR, BP 56/27, DR OKEEFE CALLED TO BEDSIDE.
--- NOTE | 2019-09-19 10:08 | NUR ---
NET APPLICATION ARCHITECT CALLED TO BEDSIDE PATIENT PRESENTING WITH BRADYCARDIC STATUS HR MID 50[address] PL[address] IN SUPINE POSITION
[2019-09-19] MEDS ORDERED: DOPamine 400 MG/D5W PREMIX 250 ML IV PRN (10:10)
[2019-09-19] MEDS ORDERED: NACL 0.9% 1,000 ML IV SCH (10:15)
--- NOTE | 2019-09-19 10:15 | NUR ---
PATIENT SUCCESSFULLY PLACED IN SUPINE/SFW POSITION
--- NOTE | 2019-09-19 10:15 | NUR ---
ATROPINE 1 AMP GIVEN FOR EVAN CARDIA, AND DOPAMINE DRIP STARTED PER DR OKEEFE
--- NOTE | 2019-09-19 10:18 | NUR ---
PATIENT PRESENTING WITH SHALLOW CHEST RISE EXPIRATORY Vt LESS THAN 300 ml PEAK PRESSURE GREATER THAN [id number] BREATH SOUNDS DECREASED BILATERAL WITH GOOD AERATION THROUGHOUT BILATERAL LUNG RIVERA DURING INSPIRATION NO EVIDENCE OF RALES, RHONCHI OR WHEEZE BILATERAL CHANGED VENTILATOR SETTINGS FOLLOWS: MODE PRVC RATE 30 I/TIME 0.65 100%
--- NOTE | 2019-09-19 10:22 | NUR ---
ON OR ABOUT THIS TIME HR CONFIRMED FLAT LINE CARDIOPULMONARY ARREST INITIATED
--- NOTE | 2019-09-19 10:28 | NUR ---
STARTED DOPAMINE AND INFUSING AT 13.87 ML/HR = 5 MCG/KG/MIN PER MD ORDER.
--- NOTE | 2019-09-19 10:33 | NUR ---
POST CARDIOPULMONARY ARREST GOOD CHEST RISE AND INSPIRATION AERATION THROUGHOUT BILATERAL LUNG RIVERA NO EVIDENCE OF RALES, RHONCHI OR WHEEZE BILATERAL AIRWAY PATENT
--- NOTE | 2019-09-19 10:48 | NUR ---
ABG COMPLETED PUNCTURE SITE LEFT RADIAL NO ADVERSE REACTION NOTED
--- NOTE | 2019-09-19 10:55 | NUR ---
ABG SAMPLE REPORT REVIEWED BY DR. JOHANN BEDOLLA NEW VENTILATOR ORDERS: INCREASE Vt 450 ml DECREASE RATE 22 BPM ABG 1-2 HOURS CALL MD WITH RESULTS
[2019-09-19] MEDS ORDERED: VANCOMYCIN 500 MG in DEXTROSE 5% 100 ML IV SCH (11:00)
[2019-09-19] MEDS: NOREPINEPHRINE 4 MG in DEXTROSE 5% 250 ML IV PRN ×2 (11:40→22:43)
--- NOTE | 2019-09-19 11:45 | NUR ---
LEVOPHED STARTED FOR HYPOTENTION.
[2019-09-19] MEDS ORDERED: SODIUM BICARBONATE 8.4% 100 MEQ in DEXTROSE 5% 1,000 ML IV SCH (13:20)
--- NOTE | 2019-09-19 13:20 | NUR ---
DR BERRY AT BEDSIDE.
--- NOTE | 2019-09-19 14:03 | NUR ---
CALLED DR. ANA MARIA OKEEFE REVIEWED ABG SAMPLE REPORT AND TORBO DR. JOHANN MORTON INCREASE RATE 26 ABG TOMORROW 09/19 8 AM OR IF RT WANTS TO DRAW BEFORE END OF SHIFT
--- NOTE | 2019-09-19 14:03 | NUR ---
PAGED DR. JOHANN MORTON [phone] LEFT CALL BACK NUMBER [phone] REPORT AND REVIEW ABG SAMPLE REPORT
--- NOTE | 2019-09-19 14:05 | NUR ---
CALL BACL FROM DR. JOHANN MORTON REVIEWED ABG SAMPLE REPORT TORBO: INCREASE RATE TO 26 BPM ABG TOMORROW 09/20/2019 8 am OR RT CAN DRAW BEFORE END OF SHIFT; CALL FOREMENTIONED WITH RESULTS
--- NOTE | 2019-09-19 14:17 | NUR ---
09/19/2019 RD FOLLOW UP COMPLETED PLEASE REFER TO NUTRITION PROGRESS NOTE UNDER CARE ACTIVITY FOR ESTIMATED NUTRITION NEEDS. RD RECOMMENDATIONS: 1. CONTINUE NEPRO 1.8 @ 35 ML/HR GOAL. -THIS WILL PROVIDE 604 ML OF WATER, 1512 CALORIES AND 68 GM OF PROTEIN WHICH MEETS ADEQUATE NUTRIENT NEEDS. 2. HOLD FEEDINGS IF RESIDUALS ARE OVER 100 ML. RESTART FEEDINGS IF RESIDUALS <50 ML PER PHYSICIAN ORDER. RESTART FEEDINGS AT 10 ML/HR. 3. CONTINUE FREE WATER FLUSH PER MD. 4. CONTINUE VITAMIN C AND ZINC 5. RD TO FOLLOW-UP 2-3 DAYS, HIGH RISK MARY BRADY, RD
--- NOTE | 2019-09-19 16:10 | NUR ---
PERIPHERAL IV'S DC'D FROM LEFT AC AND RIGHT WRIST, CATH TIPS INTACT, BLEEDING CONTROLLED. NEW IV STARTED TO LEFT FA 20G.
--- NOTE | 2019-09-19 16:35 | NUR ---
BED BATH GIVEN, PERICARE DONE, DYER CARE DONE, ORAL CARE DEFERRED DUE TO BLEEDING IN MOUTH, DRY BLOOD CLEANED FROM AROUND THE MOUTH.
--- NOTE | 2019-09-19 17:00 | NUR ---
SEDATED RESTING WELL TOLERATING VENTILATOR SETTINGS NOTED GOOD CHEST RISE
--- NOTE | 2019-09-19 17:15 | NUR ---
FINGER STICK GLUCOSE 132, NO INSULIN NEEDED PER SLIDING SCALE
--- NOTE | 2019-09-19 17:55 | NUR ---
DR RDAFORD AT BEDSIDE.
--- NOTE | 2019-09-19 19:30 | NUR ---
ASSUMED CARE OF PT.INITIAL ASSESSMENT COMPLETED.PT LETHARGIC.SR ON MONITOR.WITH MICAH CATHER WITH PIGTAIL TO RT IJ INTACT WITH GOOD BLOOD RETURN TO PIGTAIL INFUSING LEVOPHED 4MG IN 250ML D5W AT 4MCG/MIN(15ML/HR).PERIPHERAL IV TO LT F/A INTACT G20 ALSO W/GOOD BLOOD RETURN INFUSING ORDERED IVF.W/ETT TO VENT AC/PRVC MODE FIO2 100% TV450 RATE 26 PEEP8.W/OGT IN PLACE.ON OGT FEEDING NEPRO AT 35ML/HR WITH WATER FLUSH ORDERED.RESIDUALS 220ML.FEEDING ON HOLD FOR NOW, WILL CHECK AGAIN LATER.W/DYER CATHETER TO BSD DRAINING JORGE ALBERTO URINE WITH SEDIMENTS,SMALL AMT. BRUISING TO RT SIDE OF NOSE STILL NOTED AND PRESSURE ULCER TO RT BUTTOCKS ALSO NOTED, FOAM DRESSING REAPPLIED.FLACC 0
--- NOTE | 2019-09-19 20:15 | NUR ---
ORAL CARE USING VAP KIT RENDERED.RED BLOODY SECRETIONS SUCTIONED ORALLY W/SMALL CLOTS.
--- NOTE | 2019-09-19 22:30 | NUR ---
BP 100/39; LEVOPHED INCREASED TO 6MCG/MIN.WILL CONTINUE TO CLOSELY MONITOR PT
[2019-09-19] MEDS ORDERED: NOREPINEPHRINE 4 MG/4 ML VIAL IV ONE (22:41)
--- NOTE | 2019-09-19 23:46 | NUR ---
ETT READJUSTED BY RT PER DR MORTON
[2019-09-20] VITALS (18 sets, daily range): BP systolic 55–171; BP diastolic 19–69
[2019-09-20] MEDS: PIPERACILLIN/TAZOBACTAM 3.375 GM in DEXTROSE 5% 50 ML IV SCH ×2
[2019-09-20] MEDS: BLOOD GLUCOSE MONITORING 1 DEV DEV FS SCH
--- NOTE | 2019-09-20 | NUR ---
PT LETHARGIC.REPOSITIONED.NOT MOVING BUE; BILATERAL SOFT WRIST RESTRAINTS REMOVED.WILL CONTINUE TO CLOSELY MONITOR PT.
--- NOTE | 2019-09-20 01:10 | NUR ---
CXR DONE.RT AT BEDSIDE.SATURATION 83% AT THIS TIME. RT ALSO SPOKE WITH DR CERVANTES RE; PRONE POSITION; PER PHYSICIAN ITS OK NOT TO PRONE PT
--- NOTE | 2019-09-20 02:34 | NUR ---
PEA NOTED ON MONITOR; PULSE CHECKED, NO PULSE APPRECIATED USING DOPPLER, CODE BLUE CALLED. SEE CODE BLUE SHEET
[2019-09-20] MEDS ORDERED: EPINEPHrine 1:1000 (1 mg/mL) 1 MG in DEXTROSE 5% 250 ML IV PRN (02:45)
[2019-09-20] MEDS ORDERED: EPINEPHrine 1:1000 - 1 MG/ML AMP ONE ×2 (02:46→04:29)
--- NOTE | 2019-09-20 03:00 | NUR ---
CODE LIBBY CALLED,SEE CODE BLUE SHEET
--- NOTE | 2019-09-20 03:33 | NUR ---
PEA NOTED ON MONITOR.CODE BLUE CALLED.BS CHECKED 30; D50 GIVEN.COMPRESSION STARTED.SEE CODE BLUE SHEET
[2019-09-20 03:38] LABS: HEMOGLOBIN 9.4 g/dL (12.0-18.0)
[2019-09-20 03:39] LABS: HEMATOCRIT 29.5 % (36-52); MEAN CORPUSCULAR HEMOGLOBIN 33 pg (27-31); MEAN CORPUSCULAR HGB CONC 32 g/dL (33-37); MEAN CORPUSCULAR VOLUME 102.2 fL (80-94); RED BLOOD CELL COUNT(AUTO) 2.88 MIL/uL (4.20-6.10); RED CELL DISTRIBUTION WIDTH 15.3 % (11.6-13.7); WHITE BLOOD COUNT (AUTO) 5.5 K/uL (4.8-10.8)
--- NOTE | 2019-09-20 03:48 | NUR ---
PT ASYSTOLE ;CODE BLUE CALLED.SEE CODE BLUE SHEET
[2019-09-20] MEDS ORDERED: NOREPINEPHRINE 4 MG/4 ML VIAL IV ONE (04:12)
[2019-09-20 04:14] LABS: ALBUMIN 0.9 g/dL (3.4-5.0); ANION GAP 20.6 (8-16); CARBON DIOXIDE 27.5 mmol/L (21-32); MAGNESIUM 2.3 mg/dL (1.8-2.4); POTASSIUM 5.1 mmol/L (3.5-5.1); TOTAL BILIRUBIN 2.5 mg/dL (0.0-1.0)
[2019-09-20 04:24] LABS: PLATELET COUNT (AUTO) 25 K/uL (140-450)
[2019-09-20 04:26] LABS: CORRECTED WHITE BLOOD COUNT 5.2 K/uL (4.5-11.0); LYMPHOCYTES % (MANUAL) 27 % (20-46); MONOCYTES % (MANUAL) 5 % (5-12)
--- NOTE | 2019-09-20 04:26 | NUR ---
PT PULSELESS; CODE BLUE CALLED.SEE CODE BLUE SHEET.
--- NOTE | 2019-09-20 04:29 | NUR ---
TIME OF CALLED BY DR CERVANTES,
[2019-09-20 04:39] LABS: CREATININE 4.5 mg/dL (0.6-1.3)
--- NOTE | 2019-09-20 04:50 | NUR ---
PHONE CALL TO PTS SISTER ALISA VIA TELEPHONE LEAD SYSTEMS ANALYST GISSELLE #[id number]; LEAD SYSTEMS ANALYST SPOKE WITH DR CERVANTES THEN TO THE PANEL RAISER OPERATOR.EXPLAINED TO ALISA THAT PT HAS BELONGINGS; TO CALL ICU [phone] ; ALISA VERBALIZED UNDERSTANDING.NO MORTUARY AT THIS TIME.
--- NOTE | 2019-09-20 05:15 | NUR ---
PHONE CALL TO [facility] OFFICE.SPOKE WITH RASTA DISPATCHER, QUESTIONS ANSWERED.PER RASTA,[facility] WILL CALL BACK.AWAITING CALL BACK
--- NOTE | 2019-09-20 05:31 | NUR ---
PHONE CALL FROM RECEIVING WORKER'S OFFICE. REVIEWED AND BODY RELEASED BY RECEIVING WORKER AYAD GAGNON,NO RECEIVING WORKER'S CASE PER RECEIVING WORKER AYAD GAGNON.
[2019-09-20 05:33] LABS: CKMB RELATIVE INDEX 2.5 (0.0-2.5); CREATINE KINASE MB 30.7 ng/mL (0-3.6)
--- NOTE | 2019-09-20 10:00 | NUR ---
CALL THE SISTER REGUARDING HOME SHE WILL CALL BACK.
--- NOTE | 2019-09-20 12:00 | NUR ---
CALL THE SISTER AGAIN GIVE THE NAME [facility] [place] [facility], AND WILL CALL BACK MORE INFORMATION.
--- NOTE | 2019-09-20 18:20 | NUR ---
THE [facility]IN[facility] HAME CAM TO DISPLAY DIRECTOR THE BODY . THE HOUSE SUPP AWARE.
== END 2019-09-20 04:29 | disposition expired | DRG 720 ==
LOC: MED 11:20 → EEVIPCON 11:20 → MTU 15:46 → MIC 09-08 02:35
PROVIDERS: ADMIT General Practice; ATTEND General Practice
PROC: 30233K1 Transfusion of Nonautologous Frozen Plasma into Peripheral Vein, Percutaneous Approach (ICD-10-PCS; 2019-09-04)
PROC: 0BH17EZ Insertion of Endotracheal Airway into Trachea, Via Natural or Artificial Opening (ICD-10-PCS; principal; 2019-09-10)
PROC: 5A1955Z Respiratory Ventilation, Greater than 96 Consecutive Hours (ICD-10-PCS; 2019-09-10)
PROC: 02HV33Z Insertion of Infusion Device into Superior Vena Cava, Percutaneous Approach (ICD-10-PCS; 2019-09-17)
PROC: B548ZZA Ultrasonography of Superior Vena Cava, Guidance (ICD-10-PCS; 2019-09-17)
PROC: 5A1D70Z Performance of Urinary Filtration, Intermittent, Less than 6 Hours Per Day (ICD-10-PCS; 2019-09-18)
PROC: 5A12012 Performance of Cardiac Output, Single, Manual (ICD-10-PCS; 2019-09-19)
PROC: 5A12012 Performance of Cardiac Output, Single, Manual (ICD-10-PCS; 2019-09-20)
DX: A41.9 Sepsis, unspecified organism (principal); U07.1 COVID-19; E43 Unspecified severe protein-calorie malnutrition; E87.1 Hypo-osmolality and hyponatremia; D69.6 Thrombocytopenia, unspecified; N17.0 Acute kidney failure with tubular necrosis; I46.9 Cardiac arrest, cause unspecified; T37.5X5A Adverse effect of antiviral drugs, initial encounter; E87.5 Hyperkalemia; R74.0 Nonspecific elevation of levels of transaminase and lactic acid dehydrogenase [LDH]; I49.9 Cardiac arrhythmia, unspecified; I48.91 Unspecified atrial fibrillation; E87.70 Fluid overload, unspecified; E87.0 Hyperosmolality and hypernatremia; F41.9 Anxiety disorder, unspecified; E87.3 Alkalosis; E88.09 Other disorders of plasma-protein metabolism, not elsewhere classified; J12.89 Other viral pneumonia; J98.11 Atelectasis; J96.21 Acute and chronic respiratory failure with hypoxia; J69.0 Pneumonitis due to inhalation of food and vomit; R65.10 Systemic inflammatory response syndrome (SIRS) of non-infectious origin without acute organ dysfunction; J15.9 Unspecified bacterial pneumonia; J96.22 Acute and chronic respiratory failure with hypercapnia; J44.0 Chronic obstructive pulmonary disease with (acute) lower respiratory infection; K76.89 Other specified diseases of liver; R70.0 Elevated erythrocyte sedimentation rate; Z68.29 Body mass index [BMI] 29.0-29.9, adult; Z79.899 Other long term (current) drug therapy; Y92.89 Other specified places as the place of occurrence of the external cause
CPT/HCPCS: 31500; 36415; 36600; 71045; 71250; 80048; 80053; 80076; 80202; 80305; 81001; 82550; 82553; 82728; 82803; 82948; 83036; 83605; 83615; 83735; 83880; 84100; 84134; 84439; 84443; 84484; 85025; 85379; 85384; 85610; 85651; 85730; 86140; 86704; 86706; 86708; 86709; 86803; 86886; 86900; 86901; 87040; 87070; 87081; 87086; 87186; 87205; 87340; 89220; 90935; 93005; 93930; 93970; 94002; 94003; 94640; 99291; C9113; J0171; J0360; J0456; J0610; J0696; J1120; J1265; J1644; J1650; J1815; J1885; J1940; J2060; J2270; J2543; J2704; J3010; J3370; J3490; J7030; J7060; P9017; P9046; Q0092; U0003-CS